=== PATIENT | male | born 1945 | race Caucasian/White ===

== ENCOUNTER → 2018-06-19 14:29 | Outpatient (CLI) | payer MEDICARE, SELFPAY ==
--- NOTE | 2018-06-19 14:37 | RAD_ITS ---
HISTORY: RA COMPARISON: None FINDINGS: XR right hand 3 views Generalized bony demineralization. Minor narrowing of the DIP joints. The remaining joint spaces are grossly preserved. No bony erosions. Nonspecific mild soft tissue swelling at the ulnar wrist. RAD/Hand Min 3 Views IMPRESSION: 1. DIP joint mild osteoarthritis. 2. No bony erosion seen. 3. Nonspecific mild soft tissue swelling at the ulnar right wrist and diagnostic considerations would include bursitis and tenosynovitis. at 0452 Reported and signed by: Miles Goldberg MD Electronically Signed: Miles Goldberg, at 4:50 EST Tel , Service support ,
--- NOTE | 2018-06-19 14:37 | RAD_ITS ---
STUDY: X-RAY - RIGHT HAND REASON FOR EXAM: Male, 73 years old. Rheumatoid arthritis. TECHNIQUE: 3 view(s) of the hand. COMPARISON: None. FINDINGS: There is generalized osteopenia. There is joint space narrowing of the radiocarpal articulation consistent with degenerative arthrosis. Normal distal radioulnar joint. Normal visualized carpal bones. There is degenerative joint disease of the scaphotrapezium / trapezoid articulation. The remainder of the carpal articulations are normal. There is degenerative arthrosis of the carpometacarpal (CMC) articulation of the thumb. Normal second through fifth carpometacarpal joints. Normal metacarpi. There is degenerative arthrosis of the first metacarpophalangeal (MCP) joint. There is degenerative arthrosis of the interphalangeal joint of the thumb with articular joint space narrowing. Normal proximal and distal phalanges of the thumb. Normal metacarpophalangeal joints of the second through fifth fingers. There is diffuse articular joint space narrowing of the proximal and distal interphalangeal joints of the second through fifth fingers, but without erosive changes or periarticular soft tissue swelling. Normal phalanges of the second through fifth fingers. There is mild soft tissue swelling over the medial aspect of the wrist. RAD/Hand Min 3 Views IMPRESSION: Degenerative changes and osteopenia of the right hand. Electronically Signed: Srinivasa Adam DO at 22:34 EST Tel [phone], Service support ,
[2018-06-19 16:17] LABS: ALB/GLOB Ratio 0.6 RATIO (0.9-2.4); AST(SGOT) 14 U/L (15-37); Alanine Aminotransfer ALT/SGPT 15 U/L (16-61); Albumin, Serum 3.3 g/dL (3.2-5.0); Alkaline Phosphatase 68 U/L (45-117); Anion Gap 10 (5-15); BUN 5 mg/dL (7-18); BUN/Creat Ratio 8.1 RATIO (10-20); Calcium,Total 8.8 mg/dL (8.5-10.1); Chloride 93 mmol/L (98-107); Creatinine, Serum 0.62 mg/dL (0.70-1.30); EST Glomerular Filtration Rate 136 mL/min (>60); Est Glom Filt Rate - Afr Amer 164 mL/min (>60); Globulin 5.1 g/dL (2.2-4.2); Glucose 100 mg/dL (74-106); Potassium 4.2 mmol/L (3.5-5.1); Protein, Total 8.4 g/dL (6.4-8.2); Sodium Level 129 mmol/L (136-145)
[2018-06-19 16:34] LABS: Absolute Lymphocyte Count 0.52 X10^3/ul (0.83-4.51); Absolute Neutrophil Count 6.5 X10^3/uL (2.0-7.7); Basophil# 0.03 X10^3/uL; Basophil% 0.4 % (0-1); Eosinophil# 0.09 X10^3/uL; Eosinophils% 1.1 % (0-5); Hematocrit 31.5 % (40-54); Hemoglobin 10.4 g/dl (13.0-16.5); Lymphocyte # 0.52 X10^3/ul (4.0); Lymphocyte % 6.6 % (19-41); Mean Corpuscular Hgb 29.1 pg (27.0-32.0); Mean Platelet Vol. 8.7 fl (6.2-12.0); Monocyte# 0.77 X10^3/uL; Monocyte% 9.7 % (0-10); Neutrophil # 6.48 X10^3/uL (2.7-7.7); Neutrophil % 81.9 % (47-70); Platelet Count 428 K/mm3 (150-450); RBC Distribution Width CV 13.8 % (11.6-14.6); RBC Distribution Width SD 44.7 fl (35.1-43.9); Red Blood Count 3.58 M/mm3 (4.6-6.2); White Blood Count 7.9 K/mm3 (4.4-11.0)
[2018-06-19 16:43] LABS: Differential Indicated SCAN CRITERIA MET; POSITIVE COUNT NO; POSITIVE DIFFERENTIAL YES; POSITIVE MORPHOLOGY NO
[2018-06-19 18:58] LABS: Anisocytosis RARE; Platelet Estimate SLT INC (ADEQ)
[2018-06-22 16:20] LABS: CCP IgG Antibodies > 250 units (0-19); HEPATITIS B SURFACE AG Negative (Negative); Hep B Surface Antibodies Non Reactive (.); Hep C Antibodies <0.1 s/co ratio (0.0-0.9)
== END ==
PROVIDERS: Family Provider Preventive Medicine Occupational Medicine; PCP Preventive Medicine Occupational Medicine; Referring Provider Internal Medicine Rheumatology; Visit Provider Internal Medicine Rheumatology
DX: M05.79 Rheumatoid arthritis with rheumatoid factor of multiple sites without organ or systems involvement (principal); N40.1 Benign prostatic hyperplasia with lower urinary tract symptoms; M15.9 Polyosteoarthritis, unspecified; M47.892 Other spondylosis, cervical region; F41.9 Anxiety disorder, unspecified; K58.0 Irritable bowel syndrome with diarrhea
CPT/HCPCS: 36415; 73130; 80053; 85025; 86200; 86431; 86706; 86803; 87340

== ENCOUNTER → 2018-06-20 12:58 | Outpatient (CLI) | payer MEDICARE, SELFPAY ==
[2018-06-20 13:26] LABS: RBC /Synovial Fluid 0.015 10^6/uL (0)
[2018-06-20 13:55] LABS: AUTO B FLUID DILUENT BKGD CT WBC <0.1 RBC <0.01 (W<.1,R<.01); Color / Synovial Fluid Pink (Pale Yellow); Source- Body Fluid SYNOVIAL; Viscosity / Synovial Fluid Sl. Viscous (HIGH)
[2018-06-20 13:56] LABS: Appearance /Synovial Fluid Cloudy (CLEAR)
[2018-06-20 14:08] LABS: Lymph 31 %; Monocyte /Synovial Fluid 13 %; Neutrophil 56 % (0-25)
[2018-06-20 14:12] LABS: Body Fluid QC Type(s) BF1Q
[2018-06-21 12:30] LABS: Pathologist Comment Reviewed; Pathologist Review Reviewed
== END ==
PROVIDERS: Family Provider Preventive Medicine Occupational Medicine; PCP Preventive Medicine Occupational Medicine; Visit Provider Internal Medicine Rheumatology
DX: M05.79 Rheumatoid arthritis with rheumatoid factor of multiple sites without organ or systems involvement (principal); M15.9 Polyosteoarthritis, unspecified; M47.892 Other spondylosis, cervical region; M25.562 Pain in left knee; F41.9 Anxiety disorder, unspecified; K58.0 Irritable bowel syndrome with diarrhea; N40.1 Benign prostatic hyperplasia with lower urinary tract symptoms
CPT/HCPCS: 87070; 87075; 87205; 89050; 89051; 89060

== ENCOUNTER → 2018-09-04 | Outpatient (CLI) | payer MEDICARE, SELFPAY ==
[2018-09-04 12:33] LABS: Absolute Lymphocyte Count 0.68 X10^3/ul (0.83-4.51); Absolute Neutrophil Count 5.1 X10^3/uL (2.0-7.7); Basophil# 0.03 X10^3/uL; Basophil% 0.5 % (0-1); Eosinophil# 0.07 X10^3/uL; Eosinophils% 1.1 % (0-5); Hematocrit 32.8 % (40-54); Lymphocyte # 0.68 X10^3/ul (4.0); Lymphocyte % 10.7 % (19-41); Mean Corp Hgb Conc 33.5 g/gl (32-36); Mean Corpuscular Hgb 30.3 pg (27.0-32.0); Mean Corpuscular Volume 90.4 fL (80-94); Mean Platelet Vol. 9.1 fl (6.2-12.0); Monocyte# 0.53 X10^3/uL; Monocyte% 8.3 % (0-10); Neutrophil # 5.06 X10^3/uL (2.7-7.7); Neutrophil % 79.2 % (47-70); Platelet Count 325 K/mm3 (150-450); RBC Distribution Width CV 14.4 % (11.6-14.6); Red Blood Count 3.63 M/mm3 (4.6-6.2); White Blood Count 6.4 K/mm3 (4.4-11.0)
[2018-09-04 12:43] LABS: AST(SGOT) 15 U/L (15-37); Alanine Aminotransfer ALT/SGPT 15 U/L (16-61); Albumin, Serum 3.7 g/dL (3.2-5.0); Alkaline Phosphatase 73 U/L (45-117); Anion Gap 4 (5-15); BUN 7 mg/dL (7-18); BUN/Creat Ratio 10.8 RATIO (10-20); Calcium,Total 8.7 mg/dL (8.5-10.1); Chloride 99 mmol/L (98-107); Creatinine, Serum 0.65 mg/dL (0.70-1.30); EST Glomerular Filtration Rate 128 mL/min (>60); Est Glom Filt Rate - Afr Amer 155 mL/min (>60); Globulin 3.8 g/dL (2.2-4.2); Glucose 92 mg/dL (74-106); POSITIVE COUNT NO; POSITIVE DIFFERENTIAL NO; POSITIVE MORPHOLOGY NO; Potassium 4.4 mmol/L (3.5-5.1); Protein, Total 7.5 g/dL (6.4-8.2); Sodium Level 130 mmol/L (136-145)
== END | disposition home or self-care (01) ==
LOC: MTLAB 10:02
PROVIDERS: Family Provider Preventive Medicine Occupational Medicine; PCP Preventive Medicine Occupational Medicine; Referring Provider Internal Medicine Rheumatology; Visit Provider Internal Medicine Rheumatology
DX: M05.79 Rheumatoid arthritis with rheumatoid factor of multiple sites without organ or systems involvement (principal); M15.9 Polyosteoarthritis, unspecified; M47.892 Other spondylosis, cervical region; M25.562 Pain in left knee; F41.9 Anxiety disorder, unspecified; K58.0 Irritable bowel syndrome with diarrhea; N40.1 Benign prostatic hyperplasia with lower urinary tract symptoms; Z79.899 Other long term (current) drug therapy
CPT/HCPCS: 36415; 80053; 85025

== ENCOUNTER → 2018-11-27 | Outpatient (CLI) | payer MEDICARE, SELFPAY ==
[2018-11-27 10:15] LABS: Absolute Lymphocyte Count 0.65 X10^3/uL (0.83-4.51); Absolute Neutrophil Count 6.7 X10^3/uL (2.0-7.7); Basophil# 0.06 X10^3/uL; Basophil% 0.7 % (0-1); Eosinophil# 0.13 X10^3/uL; Eosinophils% 1.6 % (0-5); Hemoglobin 12.3 g/dL (13.0-16.5); Lymphocyte # 0.65 X10^3/ul (4.0); Lymphocyte % 7.9 % (19-41); Mean Corp Hgb Conc 32.4 g/dL (32-36); Mean Corpuscular Hgb 29.7 pg (27.0-32.0); Mean Corpuscular Volume 91.8 fL (80-94); Mean Platelet Vol. 8.3 fl (6.2-12.0); Monocyte# 0.62 X10^3/uL; Monocyte% 7.6 % (0-10); NRBC Flagged by Analyzer 0 % (0-5); Neutrophil # 6.69 X10^3/uL (2.7-7.7); Neutrophil % 81.8 % (47-70); Platelet Count 408 K/mm3 (150-450); RBC Distribution Width CV 12.6 % (11.6-14.6); RBC Distribution Width SD 41.6 fl (35.1-43.9); Red Blood Count 4.14 M/mm3 (4.6-6.2); White Blood Count 8.2 K/mm3 (4.4-11.0)
[2018-11-27 10:37] LABS: ALB/GLOB Ratio 0.7 RATIO (0.9-2.4); AST(SGOT) 13 U/L (15-37); Alanine Aminotransfer ALT/SGPT 14 U/L (16-61); Albumin, Serum 3.5 g/dL (3.2-5.0); Alkaline Phosphatase 83 U/L (45-117); Anion Gap 4 (5-15); BUN 7 mg/dL (7-18); BUN/Creat Ratio 9.5 RATIO (10-20); Chloride 96 mmol/L (98-107); Creatinine, Serum 0.74 mg/dL (0.70-1.30); EST Glomerular Filtration Rate 110 mL/min (>60); Est Glom Filt Rate - Afr Amer 134 mL/min (>60); Globulin 4.7 g/dL (2.2-4.2); Glucose 100 mg/dL (74-106); Potassium 4.5 mmol/L (3.5-5.1); Protein, Total 8.2 g/dL (6.4-8.2); Sodium Level 128 mmol/L (136-145)
== END | disposition home or self-care (01) ==
LOC: MTLAB 08:41
PROVIDERS: Family Provider Preventive Medicine Occupational Medicine; PCP Preventive Medicine Occupational Medicine; Referring Provider Internal Medicine Rheumatology; Visit Provider Internal Medicine Rheumatology
DX: M05.79 Rheumatoid arthritis with rheumatoid factor of multiple sites without organ or systems involvement (principal); M15.9 Polyosteoarthritis, unspecified; M47.892 Other spondylosis, cervical region; M25.562 Pain in left knee; F41.9 Anxiety disorder, unspecified; K58.0 Irritable bowel syndrome with diarrhea; N40.1 Benign prostatic hyperplasia with lower urinary tract symptoms; Z79.899 Other long term (current) drug therapy
CPT/HCPCS: 36415; 80053; 85025

== ENCOUNTER → 2019-02-15 | Outpatient (CLI) | payer MEDICARE, SELFPAY ==
[2019-02-15 10:26] LABS: Absolute Lymphocyte Count 0.65 X10^3/uL (0.83-4.51); Basophil# 0.05 X10^3/uL; Basophil% 0.7 % (0-1); Eosinophil# 0.18 X10^3/uL; Eosinophils% 2.4 % (0-5); Hematocrit 35.2 % (40-54); Hemoglobin 11.3 g/dL (13.0-16.5); Lymphocyte # 0.65 X10^3/ul (4.0); Lymphocyte % 8.6 % (19-41); Mean Corp Hgb Conc 32.1 g/dL (32-36); Mean Corpuscular Hgb 29.4 pg (27.0-32.0); Mean Corpuscular Volume 91.4 fL (80-94); Mean Platelet Vol. 9.4 fl (6.2-12.0); Monocyte# 0.64 X10^3/uL; Monocyte% 8.5 % (0-10); NRBC Flagged by Analyzer 0 % (0-5); Neutrophil % 79.4 % (47-70); Platelet Count 307 K/mm3 (150-450); RBC Distribution Width CV 13.7 % (11.6-14.6); RBC Distribution Width SD 45.8 fl (35.1-43.9); Red Blood Count 3.85 M/mm3 (4.6-6.2); White Blood Count 7.6 K/mm3 (4.4-11.0)
[2019-02-15 10:54] LABS: ALB/GLOB Ratio 0.8 RATIO (0.9-2.4); AST(SGOT) 12 U/L (15-37); Alanine Aminotransfer ALT/SGPT 14 U/L (16-61); Albumin, Serum 3.7 g/dL (3.2-5.0); Alkaline Phosphatase 84 U/L (45-117); Anion Gap 6 (5-15); BUN 8 mg/dL (7-18); BUN/Creat Ratio 9.6 RATIO (10-20); Chloride 98 mmol/L (98-107); Creatinine, Serum 0.84 mg/dL (0.70-1.30); EST Glomerular Filtration Rate 95 mL/min (>60); Est Glom Filt Rate - Afr Amer 115 mL/min (>60); Globulin 4.4 g/dL (2.2-4.2); Glucose 86 mg/dL (74-106); Potassium 4.2 mmol/L (3.5-5.1); Protein, Total 8.1 g/dL (6.4-8.2); Sodium Level 133 mmol/L (136-145)
== END | disposition home or self-care (01) ==
LOC: MTLAB 09:27
PROVIDERS: Family Provider Preventive Medicine Occupational Medicine; PCP Preventive Medicine Occupational Medicine; Referring Provider Internal Medicine Rheumatology; Visit Provider Internal Medicine Rheumatology
DX: M05.79 Rheumatoid arthritis with rheumatoid factor of multiple sites without organ or systems involvement (principal); M15.9 Polyosteoarthritis, unspecified; M47.892 Other spondylosis, cervical region; M25.562 Pain in left knee; F41.9 Anxiety disorder, unspecified; K58.0 Irritable bowel syndrome with diarrhea; N40.1 Benign prostatic hyperplasia with lower urinary tract symptoms; Z79.899 Other long term (current) drug therapy
CPT/HCPCS: 36415; 80053; 85025

== ENCOUNTER → 2019-04-02 08:24 | Outpatient (CLI) | payer MEDICARE, SELFPAY ==
[2019-04-02 10:07] LABS: Absolute Lymphocyte Count 0.75 X10^3/uL (0.83-4.51); Absolute Neutrophil Count 5.2 X10^3/uL (2.0-7.7); Basophil# 0.07 X10^3/uL; Eosinophil# 0.22 X10^3/uL; Eosinophils% 3.2 % (0-5); Hematocrit 35.6 % (40-54); Hemoglobin 11.6 g/dL (13.0-16.5); Lymphocyte # 0.75 X10^3/ul (4.0); Lymphocyte % 10.9 % (19-41); Mean Corp Hgb Conc 32.6 g/dL (32-36); Mean Corpuscular Hgb 29.6 pg (27.0-32.0); Mean Corpuscular Volume 90.8 fL (80-94); Mean Platelet Vol. 9.4 fl (6.2-12.0); Monocyte# 0.58 X10^3/uL; Monocyte% 8.5 % (0-10); NRBC Flagged by Analyzer 0.3 % (0-5); Neutrophil # 5.21 X10^3/uL (2.7-7.7); Neutrophil % 76.1 % (47-70); Platelet Count 292 K/mm3 (150-450); RBC Distribution Width CV 13.3 % (11.6-14.6); RBC Distribution Width SD 43.7 fl (35.1-43.9); Red Blood Count 3.92 M/mm3 (4.6-6.2); White Blood Count 6.9 K/mm3 (4.4-11.0)
[2019-04-02 10:25] LABS: ALB/GLOB Ratio 0.8 RATIO (0.9-2.4); AST(SGOT) 11 U/L (15-37); Alanine Aminotransfer ALT/SGPT 12 U/L (16-61); Albumin, Serum 3.6 g/dL (3.2-5.0); Alkaline Phosphatase 87 U/L (45-117); Anion Gap 5 (5-15); BUN 9 mg/dL (7-18); BUN/Creat Ratio 10.7 RATIO (10-20); Calcium,Total 9.2 mg/dL (8.5-10.1); Chloride 102 mmol/L (98-107); Creatinine, Serum 0.84 mg/dL (0.70-1.30); EST Glomerular Filtration Rate 94 mL/min (>60); Est Glom Filt Rate - Afr Amer 114 mL/min (>60); Globulin 4.5 g/dL (2.2-4.2); Glucose 93 mg/dL (74-106); Potassium 4.1 mmol/L (3.5-5.1); Protein, Total 8.1 g/dL (6.4-8.2); Sodium Level 135 mmol/L (136-145)
== END ==
PROVIDERS: Family Provider Preventive Medicine Occupational Medicine; PCP Preventive Medicine Occupational Medicine; Referring Provider Internal Medicine Rheumatology; Visit Provider Internal Medicine Rheumatology
DX: M05.79 Rheumatoid arthritis with rheumatoid factor of multiple sites without organ or systems involvement (principal); M15.9 Polyosteoarthritis, unspecified; M47.892 Other spondylosis, cervical region; M25.562 Pain in left knee; F41.9 Anxiety disorder, unspecified; K58.0 Irritable bowel syndrome with diarrhea; N40.1 Benign prostatic hyperplasia with lower urinary tract symptoms; Z79.899 Other long term (current) drug therapy
CPT/HCPCS: 36415; 80053; 85025

== ENCOUNTER → 2019-10-14 | Outpatient (CLI) | payer MEDICARE, SELFPAY ==
[2019-10-14 12:31] LABS: Absolute Lymphocyte Count 0.77 X10^3/uL (0.83-4.51); Basophil# 0.05 X10^3/uL; Basophil% 0.9 % (0-1); Eosinophil# 0.12 X10^3/uL; Eosinophils% 2.3 % (0-5); Hematocrit 38.5 % (40-54); Hemoglobin 13.1 g/dL (13.0-16.5); Lymphocyte # 0.77 X10^3/ul (4.0); Lymphocyte % 14.4 % (19-41); Mean Corpuscular Hgb 32.6 pg (27.0-32.0); Mean Corpuscular Volume 95.8 fL (80-94); Monocyte# 0.41 X10^3/uL; Monocyte% 7.7 % (0-10); NRBC Flagged by Analyzer 0 % (0-5); Neutrophil # 3.96 X10^3/uL (2.7-7.7); Neutrophil % 74.3 % (47-70); Platelet Count 307 K/mm3 (150-450); RBC Distribution Width CV 12.7 % (11.6-14.6); RBC Distribution Width SD 44.5 fl (35.1-43.9); Red Blood Count 4.02 M/mm3 (4.6-6.2); White Blood Count 5.3 K/mm3 (4.4-11.0)
[2019-10-14 12:51] LABS: ALB/GLOB Ratio 0.8 RATIO (0.9-2.4); AST(SGOT) 12 U/L (15-37); Alanine Aminotransfer ALT/SGPT 19 U/L (16-61); Albumin, Serum 3.6 g/dL (3.2-5.0); Alkaline Phosphatase 73 U/L (45-117); Anion Gap 8 (5-15); BUN 8 mg/dL (7-18); BUN/Creat Ratio 8.8 RATIO (10-20); Calcium,Total 9.1 mg/dL (8.5-10.1); Chloride 99 mmol/L (98-107); Creatinine, Serum 0.91 mg/dL (0.70-1.30); EST Glomerular Filtration Rate 86 mL/min (>60); Est Glom Filt Rate - Afr Amer 104 mL/min (>60); Globulin 4.3 g/dL (2.2-4.2); Glucose 94 mg/dL (74-106); Potassium 4.1 mmol/L (3.5-5.1); Protein, Total 7.9 g/dL (6.4-8.2); Sodium Level 135 mmol/L (136-145)
== END | disposition home or self-care (01) ==
LOC: MTLAB 09:31
PROVIDERS: PCP Preventive Medicine Occupational Medicine; Referring Provider Internal Medicine Rheumatology; Visit Provider Internal Medicine Rheumatology
DX: M05.70 Rheumatoid arthritis with rheumatoid factor of unspecified site without organ or systems involvement (principal); M15.9 Polyosteoarthritis, unspecified; M47.892 Other spondylosis, cervical region; F41.9 Anxiety disorder, unspecified; K58.0 Irritable bowel syndrome with diarrhea; N40.1 Benign prostatic hyperplasia with lower urinary tract symptoms; Z79.899 Other long term (current) drug therapy
CPT/HCPCS: 36415; 80053; 85025

== ENCOUNTER → 2020-01-10 | Outpatient (CLI) | payer MEDICARE, SELFPAY ==
[2020-01-10 09:45] LABS: Absolute Lymphocyte Count 0.76 X10^3/uL (0.83-4.51); Absolute Neutrophil Count 3.6 X10^3/uL (2.0-7.7); Basophil# 0.05 X10^3/uL; Eosinophil# 0.27 X10^3/uL; Eosinophils% 5.2 % (0-5); Hematocrit 38.2 % (40-54); Hemoglobin 12.8 g/dL (13.0-16.5); Lymphocyte # 0.76 X10^3/ul (4.0); Lymphocyte % 14.8 % (19-41); Mean Corp Hgb Conc 33.5 g/dL (32-36); Mean Corpuscular Hgb 31.2 pg (27.0-32.0); Mean Corpuscular Volume 93.2 fL (80-94); Mean Platelet Vol. 9.2 fl (6.2-12.0); Monocyte% 9.7 % (0-10); NRBC Flagged by Analyzer 0 % (0-5); Neutrophil # 3.55 X10^3/uL (2.7-7.7); Neutrophil % 68.9 % (47-70); Platelet Count 248 K/mm3 (150-450); RBC Distribution Width CV 13.1 % (11.6-14.6); RBC Distribution Width SD 44.3 fl (35.1-43.9); White Blood Count 5.2 K/mm3 (4.4-11.0)
[2020-01-10 10:01] LABS: AST(SGOT) 14 U/L (15-37); Alanine Aminotransfer ALT/SGPT 23 U/L (16-61); Albumin, Serum 3.8 g/dL (3.2-5.0); Alkaline Phosphatase 64 U/L (45-117); Anion Gap 3 (5-15); BUN 11 mg/dL (7-18); BUN/Creat Ratio 9.7 RATIO (10-20); Chloride 103 mmol/L (98-107); Creatinine, Serum 1.13 mg/dL (0.70-1.30); EST Glomerular Filtration Rate 67 mL/min (>60); Est Glom Filt Rate - Afr Amer 81 mL/min (>60); Glucose 100 mg/dL (74-106); Protein, Total 7.8 g/dL (6.4-8.2); Sodium Level 136 mmol/L (136-145)
== END | disposition home or self-care (01) ==
LOC: MTLAB 08:10
PROVIDERS: PCP Preventive Medicine Occupational Medicine; Referring Provider Internal Medicine Rheumatology; Visit Provider Internal Medicine Rheumatology
DX: M05.70 Rheumatoid arthritis with rheumatoid factor of unspecified site without organ or systems involvement (principal); M15.9 Polyosteoarthritis, unspecified; M47.892 Other spondylosis, cervical region; F41.9 Anxiety disorder, unspecified; K58.0 Irritable bowel syndrome with diarrhea; N40.1 Benign prostatic hyperplasia with lower urinary tract symptoms; Z79.899 Other long term (current) drug therapy
CPT/HCPCS: 36415; 80053; 85025

== ENCOUNTER → 2020-03-23 18:18 | Outpatient (CLI) | payer MEDICARE, SELFPAY ==
[2020-03-23 18:20] LABS: Bacteria 0 SEEN /hpf (None Seen); Mucous, Urine 0 SEEN /hpf (<or=2+); Red Blood Cells-Urine 0 SEEN /hpf (0-5); Squamous Epithelial Cells - UA 0 SEEN /hpf (0-5); White Blood Cells 0 SEEN /hpf (0-5)
[2020-03-23 18:54] LABS: Color, Urine Yellow (Yellow); Glucose, Dipstick Normal (Normal); Ketone-Dipstick Negative (Negative); Leukocyte Esterase-Dipstick Negative /ul (Negative); Nitrite-Dipstick Negative (Negative); Occult Blood-Urine 10 /ul (Negative); Protein-Dipstick Negative (Negative); Urine Bilirubin Dipstick Negative (Negative); Urine Clarity Clear (Clear); Urine Urobilinogen Normal (Normal)
== END ==
PROVIDERS: PCP Preventive Medicine Occupational Medicine; Referring Provider Nurse Practitioner Adult Health; Visit Provider Nurse Practitioner Adult Health
DX: R31.29 Other microscopic hematuria (principal)
CPT/HCPCS: 81001

== ENCOUNTER → 2020-04-01 09:31 | Outpatient (CLI) | payer MEDICARE, SELFPAY ==
[2020-04-01 12:18] LABS: Absolute Lymphocyte Count 0.62 X10^3/uL (0.83-4.51); Absolute Neutrophil Count 4.4 X10^3/uL (2.0-7.7); Basophil# 0.06 X10^3/uL; Eosinophil# 0.17 X10^3/uL; Eosinophils% 2.8 % (0-5); Hemoglobin 12.8 g/dL (13.0-16.5); Lymphocyte # 0.62 X10^3/ul (4.0); Lymphocyte % 10.3 % (19-41); Mean Corp Hgb Conc 32.8 g/dL (32-36); Mean Corpuscular Hgb 31.5 pg (27.0-32.0); Mean Corpuscular Volume 96.1 fL (80-94); Mean Platelet Vol. 9.3 fl (6.2-12.0); Monocyte# 0.67 X10^3/uL; Monocyte% 11.2 % (0-10); NRBC Flagged by Analyzer 0 % (0-5); Neutrophil # 4.44 X10^3/uL (2.7-7.7); Platelet Count 295 K/mm3 (150-450); RBC Distribution Width CV 13.2 % (11.6-14.6); Red Blood Count 4.06 M/mm3 (4.6-6.2)
[2020-04-01 12:48] LABS: AST(SGOT) 11 U/L (15-37); Alanine Aminotransfer ALT/SGPT 18 U/L (16-61); Albumin, Serum 3.7 g/dL (3.2-5.0); Alkaline Phosphatase 61 U/L (45-117); Anion Gap 3 (5-15); BUN 10 mg/dL (7-18); BUN/Creat Ratio 9.1 RATIO (10-20); Calcium,Total 8.8 mg/dL (8.5-10.1); Chloride 104 mmol/L (98-107); EST Glomerular Filtration Rate 69 mL/min (>60); Est Glom Filt Rate - Afr Amer 84 mL/min (>60); Globulin 3.8 g/dL (2.2-4.2); Glucose 86 mg/dL (74-106); Potassium 4.1 mmol/L (3.5-5.1); Protein, Total 7.5 g/dL (6.4-8.2); Sodium Level 137 mmol/L (136-145)
[2020-04-01 12:49] LABS: PSA,Total - Annual Screen 7.12 ng/mL (0.00-4.00)
== END ==
PROVIDERS: Nurse Practitioner Adult Health; PCP Preventive Medicine Occupational Medicine; Referring Provider Internal Medicine Rheumatology; Visit Provider Internal Medicine Rheumatology
DX: M05.70 Rheumatoid arthritis with rheumatoid factor of unspecified site without organ or systems involvement (principal); Z79.899 Other long term (current) drug therapy; M15.9 Polyosteoarthritis, unspecified; M47.892 Other spondylosis, cervical region; F41.9 Anxiety disorder, unspecified; K58.0 Irritable bowel syndrome with diarrhea; N40.1 Benign prostatic hyperplasia with lower urinary tract symptoms; Z12.5 Encounter for screening for malignant neoplasm of prostate
CPT/HCPCS: 36415; 80053; 84153; 85025; G0103

== ENCOUNTER 2020-04-24 08:20 | Day surgery (SDC) | payer MEDICARE, SELFPAY ==
--- NOTE | 2020-04-21 10:34 | EKG12_ITS ---
Test Reason : PRE OP Blood Pressure : / mmHG Vent. Rate : 066 BPM Atrial Rate : 066 BPM P-R Int : 142 ms QRS Dur : 086 ms QT Int : 374 ms P-R-T Axes : 078 081 073 degrees QTc Int : 392 ms Normal sinus rhythm Normal ECG Confirmed by JEAN-PIERRE BOLAÑOS, RICCI ([id number]), editorial intern MARYAM MUNGUIA ([id number]) on 04/22/2020 1:12:05 PM Referred By: Micheal Baltazar Confirmed By:RICCI MOREJON MD
[2020-04-21 11:46] LABS: Prothrombin Time (Protime)PT. 12.6 SECONDS (11.7-14.9)
[2020-04-21 11:47] LABS: Partial Thromboplast Time 31.1 Seconds (24.1-36.2)
[2020-04-24] VITALS (10 sets, daily range): BP systolic 122–136; BP diastolic 64–97; PULSE 57–74; RESP 16–20; TEMP 36.1–37.1; O2SAT 92–100; BMI 21.3
[2020-04-24] MEDS: Lactated Ringers 1,000 ML 100 ML IV ×2 (09:01→10:55)
--- NOTE | 2020-04-24 09:14 | HP.PCM_ITS ---
History of Present Illness Date of Admission: 04/24/20 Chief Complaint: BPH with obstruction The patient is a 75 year old male who underwent a UroLift procedure about a year and a half ago, the first 6 months he reports very good stream very good voiding can empty well he was happy with how he is doing but now suddenly slowed down a lot lot of obstruction on cystoscopy has a lot of bilateral hypertrophy and obstruction still so we can proceed with a transurethral resection of the prostate using button Olympus Past Medical History Allergies hydrocodone [From Vicodin] Allergy (Verified 04/24/20 08:35) Swelling Home Medications: Ambulatory Orders Medication Instructions Recorded ALPRAZolam [Xanax] 2 mg PO TID PRN PRN 04/17/20 Diphenoxylate HCl/Atropine 1 ea PO PRN PRN 04/17/20 [Diphenoxylate-Atrop 2.5-0.025] Ferrous Sulfate, Dried [Iron] 130 mg PO DAILY 04/17/20 Folic Acid 2 mg PO DAILY 04/17/20 Melatonin 10 mg PO QHS 04/17/20 Methotrexate Sodium [Methotrexate] 8 tab PO FR 04/17/20 Prednisone 10 mg PO DAILY 04/17/20 Tramadol HCl [Ultram] 50 mg PO TID PRN PRN 04/17/20 Surgical History: no surgical history Smoking Status: Former smoker Review of Systems Constitutional: Denies: Chills, Fever, Weight Change HEENT: Denies: Head Aches, Sinus Congestion, Sinus Drainage Cardiovascular: Denies: Chest Pain, Palpitations Respiratory: Denies: Cough, Shortness of breath at rest, Sputum production Gastrointestinal: Denies: Abdominal Pain, Nausea, Vomiting Genitourinary: Denies: Dysuria Musculoskeletal: Denies: Joint Pain, Joint Tenderness Skin: Denies: Rash, Wounds Neurological: Denies: Numbness, Tingling, Focal weakness Psychiatric: Denies: Anxiety, Depression, Homicidal Ideations, Suicidal Ideations Hematologic/ Lymphatic: Denies: Easy Bruising, Easy Bleeding VTE Information - Inpt Only VTE Present on Admission: No - Physical Exam Vitals/I&O's: Vital Signs Temp Pulse Resp BP Pulse Ox 98.8 F 71 16 125/73 H 92 04/24/20 08:56 04/24/20 08:56 04/24/20 08:56 04/24/20 08:56 04/24/20 08:56 Oxygen Delivery Method Room Air Weight: 69.3 kg Body Mass Index (BMI) 21.3 General: Alert, Oriented x3, Cooperative HEENT: Atraumatic, PERRLA, EOMI, Normocephalic Neck: Supple, No JVD, Negative Carotid Bruits Lungs: Clear to auscultation, Normal air movement Cardiovascular: Regular rate, No murmurs Abdomen: Bowel Sounds Present, Soft, Non Tender Extremities: No edema, Capillary Refill Less than 3 Seconds Skin: No rashes, No breakdown Musculoskeletal: No Tenderness to Palpation of Joints or Extremities Neurological: Cranial nerves II-XII grossly intact Psych/Mental Status: Normal Affect, Appropriate Microbiology Past 72 Hours 04/23/20 09:20 Interface Orders SARS-CoV-2 Antigen (Rapid) - Final Current Medications Cefazolin Sodium 2 gm/ Sodium (Chloride) 110 mls @ 150 mls/hr IV PREOP ONE Stop: 04/24/20 11:43 Lactated Ringer's () 1,000 mls @ 100 mls/hr IV .Q10H UBALDO Last Admin: 04/24/20 09:01 Dose: 100 mls/hr Documented by: Assessment/Plan 75-year-old male with BPH and obstruction has failed UroLift to proceed with tr ansurethral resection of the prostate.
--- NOTE | 2020-04-24 09:22 | DCINST_ITS ---
Discharge Diet: Light diet - advance as tolerated Discharge Activity: Return to Normal Activity Suture Line Care: Avoid Pulling/Pushing, Avoid Pinching/Bending Instructions: Transurethral Resection of the Prostate (TURP): Home Recovery Allergies/Adverse Reactions: Allergies hydrocodone [From Vicodin] Allergy (Verified 04/24/20 08:35) Swelling Medications to take at Discharge ALPRAZolam [Xanax] 2 mg PO TID PRN PRN 04/17/20 Diphenoxylate HCl/Atropine [Diphenoxylate-Atrop 2.5-0.025] 1 ea PO PRN PRN 04/17/20 Ferrous Sulfate, Dried [Iron] 130 mg PO DAILY 04/17/20 Folic Acid 2 mg PO DAILY 04/17/20 Melatonin 10 mg PO QHS 04/17/20 Methotrexate Sodium [Methotrexate] 8 tab PO FR 04/17/20 Prednisone 10 mg PO DAILY 04/17/20 Tramadol HCl [Ultram] 50 mg PO TID PRN PRN 04/17/20 Ciprofloxacin [Cipro] 500 mg PO BID #14 tab 04/24/20 The following prescriptions were given: Ciprofloxacin [Cipro] 500 mg PO BID #14 tab Transmission Status: Pending to [facility] Orders to be completed after discharge: 12 Lead EKG [[facility]] Time Frame: 04/21/20, Facility: [facility], Location: Cardiovascular Services Primary Care Physician: Festus Castle DO [Primary Care Provider] - Test Results: Test results from this visit will be discussed in further detail at your follow- up appointment, if applicable. Please Follow Up With: Micheal Baltazar MD When: in 2 weeks, please call to make an appointment. Proposed Discharge Date: 04/25/20
[2020-04-24] MEDS: Cefazolin 2 GM in 0.9% Normal Saline 100 ML IV (09:33)
[2020-04-24] MEDS: Lubricating Jelly 60 GM Tube 30 GM TOPICAL (09:46)
--- NOTE | 2020-04-24 09:50 | PROS_PTH ---
PATIENT: JAMISON ADAIR LOC: [facility] U#:[id number] AGE/SX: 75/M ROOM: RE04/24/[address]: Dr. Micheal Baltazar MD : 1945 BED: DIS: 04/25/2020 SPEC #: [id number] RECD: 04/24/20 11:06 STATUS: NATO RAMIRO #: [id number] JATINDER: 04/24/20 09:[address]: Micheal Baltazar DEPT: SURGICAL PATHOLOGY RECD BY: Siria Robles ENTERED: 04/24/20 13:04 SP TYPE: TURP OTHR DR: Dr. Festus Castle DO Tissues: Prostate, NOS Procedures: Surgery Specimen Level IV HEADER OPERATION: Cysto, TUR prostate, Olympus PRE-OP DIAGNOSIS: Benign prostatic hyperplasia, frequency and hesitancy micturition; nocturia TISSUE SUBMITTED: Prostate pieces MICROSCOPIC DIAGNOSIS Prostate pieces, TUR: Benign prostatic hyperplasia. SJ:jules 04/27/20 MICROSCOPIC DESCRIPTION Slides are reviewed. GROSS DESCRIPTION Received is one container labeled with the patient's name and designated prostate pieces. The specimen consists of multiple irregular fragments of pink-stanton, rubbery, soft tissue that in aggregate weigh 0.3 gm and measure in aggregate 1 x 0.5 x 0.2 cm. The entire specimen is submitted in one cassette. / TORIBIO:jules 04/24/20 TC:5 CPT: 85770
--- NOTE | 2020-04-24 10:51 | PCM.OPRPT ---
Report of Operation Date of Procedure: 04/24/20 Pre-Operative Diagnosis: BPH with obstruction status post UroLift Post-Operative Diagnosis: The same Surgery/Procedure Performed:: Transurethral resection of the prostate and removal of UroLift implants, foreign bodies. Description of Surgical Findings:: 75-year-old male who underwent a UroLift implant about 2 years ago he was initially very happy with the results had a nice flow and was also happy with the low sexual side effect profile did not affect his ejaculation and sexually. However he is not having too much problems with urination having to go to bathroom very frequently not emptying his bladder all the way. He has a lot of obstructive tissue on cystoscopy so today we can proceed with a transurethral resection of the prostate understands with this procedure it could affect his ability to have ejaculation it could affect erections he could have bleeding infection and regrowth is also the chance of injuring the sphincter with the surgery. He is having significant urinary problems he wants to proceed with surgery despite the risks were discussed with the patient he signed the consent form and we can proceed with a TURP and removal of UroLift implants. Patient was taken back to the operating room after smooth induction of general anesthesia he was placed in dorsolithotomy position. The penis and testicles were prepped and draped in usual sterile fashion. I first went in the bladder with a 24 Russian noncontinuous flow resectoscope. I dilated the urethra with a sound. I then went in with the Olympus bipolar resectoscope using the visual bridge. The entire length of the urethra was clear of any strictures or scar tissue the sphincter was intact the verumontanum was identified. He had a large median lobe and bilateral hypertrophy. The UroLift implants were not visible. I looked inside the bladder he did have a large distended bladder trabeculation throughout the bladder I did identify the right and left ureteral orifice. I then pulled back of the bladder neck with a marked median lobe was present I switched over to the button vaporization for the TURP and started vaporizing the median lobe and the resected this and then worked my way down to the verumontanum. I then worked my way on the patient's left prostate starting at the bladder neck working away back to verumontanum vaporizing the tissue on the left side. Then it came across the first UroLift clip and this was removed with the button vaporization then I came across a second clip on the left side this was also removed continue to vaporize the tissue until he had a nice wide open channel on the left side and then vaporized a lot of the obstructive BPH tissue. Then I went to the right side of the prostate and continued vaporizing the right side of the prostate came across the first UroLift implant and the second implant both of these were removed with the bipolar vaporizer I then emptied out the bladder in the middle the case then switched over to the 26 Russian continuous-flow to be able to continue vaporized the tissue more efficiently. I continue vaporizing the right side of the prostate I then came down to the apical tissue and very carefully resected the apical tissue with the Olympus vaporizer button tip and as a did this I then pulled out the scope and did a flow test had a nice wide open flow I went back in with a 24 Russian noncontinuous flow and continue to vaporize the tissue. Then all the pieces of tissue at the bladder were removed these were sent off as a specimen as a small specimen since most of the prostate was vaporized. At the end of the case the left and right ureteral orifice were intact and uninjured. The sphincter was intact and uninjured. He had a nice amount of tissue at the apex so should have good control of his bladder but we did a nice flow test and had a nice open flow and a wide open channel from the verumontanum sphincter area into the bladder neck and the bladder neck was wide open. I then used the vaporization to obtain hemostasis I cauterized extensively throughout the prostate once hemostasis was obtained and I put a 22 Russian catheter into the bladder and this was placed on continuous bladder irrigation the urine was nice and clear patient anesthetic was reversed taken back to PACU in good condition. Type of Anesthesia:: General Drains: 22fr 3 way - Admit VTE Documentation VTE Present on Admission: No VTE Mechan Device Prophylaxis: SCD's
--- NOTE | 2020-04-24 11:53 | PCS.PANDOC ---
PANDEMIC DOCUMENTATION INITIATED: Date: 04/24/2020 Time: 7285
[2020-04-24] MEDS: 0.9% Normal Saline 1,000 ML 75 ML IV ×2 (12:20→23:23)
[2020-04-24] MEDS: Ciprofloxacin 500 MG Tablet PO ×2 (13:52→23:02)
[2020-04-24] MEDS: Docusate Sodium 100 MG Capsule PO ×2 (13:53→23:02)
[2020-04-24] MEDS: predniSONE 10 MG Tablet PO (13:53)
[2020-04-24] MEDS: Folic Acid 1 MG Tablet 2 MG PO (13:53)
[2020-04-24] MEDS: Pantoprazole Sodium 40 MG Tablet PO (13:53)
[2020-04-24] MEDS: Methotrexate 2.5 MG Tablet 20 MG PO (13:55)
[2020-04-24] MEDS: MELATONIN 10 MG TABLET PO (23:03)
[2020-04-24] MEDS: ALPRAZolam 0.5 MG Tablet 2 MG PO (23:06)
[2020-04-25 06:11] VITALS: BP 125/69; PULSE 67; RESP 18; TEMP 36.7; O2SAT 95
[2020-04-25 08:20] VITALS: BP 148/100; PULSE 79; RESP 18; TEMP 36.2; O2SAT 98
[2020-04-25] MEDS: Docusate Sodium 100 MG Capsule PO (08:48)
[2020-04-25] MEDS: Folic Acid 1 MG Tablet 2 MG PO (08:48)
[2020-04-25] MEDS: Ferrous Sulfate 325 MG Tablet PO (08:48)
[2020-04-25] MEDS: predniSONE 10 MG Tablet PO (08:49)
[2020-04-25] MEDS: Pantoprazole Sodium 40 MG Tablet PO (10:10)
[2020-04-25] MEDS: Ciprofloxacin 500 MG Tablet PO (10:10)
[2020-04-25 12:55] VITALS: BP 148/66; PULSE 74; RESP 18; TEMP 37.2; O2SAT 100
== END 2020-04-25 13:35 | disposition home or self-care (01) ==
LOC: SDC 08:20 → AC 08:21 → MS3 13:15
PROVIDERS: Anesthesiology; PCP Preventive Medicine Occupational Medicine; Referring Provider Urology; Visit Provider Urology
PROC: (CPT 52630; principal; 2020-04-24 09:40)
DX: N40.1 Benign prostatic hyperplasia with lower urinary tract symptoms (principal); N13.8 Other obstructive and reflux uropathy; D64.9 Anemia, unspecified; F41.9 Anxiety disorder, unspecified; Z79.899 Other long term (current) drug therapy; Z20.828 Contact with and (suspected) exposure to other viral communicable diseases; Z87.891 Personal history of nicotine dependence
CPT/HCPCS: 00914; 52630; 36415; 85610; 85730; 87426; 88305; 93005; C9803; J7030; J7120; J2405; J8610

== ENCOUNTER → 2020-06-19 09:21 | Outpatient (CLI) | payer MEDICARE, SELFPAY ==
[2020-04-24 11:59] VITALS: BMI 21.3
[2020-06-19 12:12] LABS: Absolute Lymphocyte Count 1.06 X10^3/uL (0.83-4.51); Absolute Neutrophil Count 4.5 X10^3/uL (2.0-7.7); Basophil# 0.05 X10^3/uL; Basophil% 0.8 % (0-1); Eosinophil# 0.12 X10^3/uL; Eosinophils% 1.9 % (0-5); Hematocrit 39.3 % (40-54); Hemoglobin 12.9 g/dL (13.0-16.5); Lymphocyte # 1.06 X10^3/ul (4.0); Lymphocyte % 16.5 % (19-41); Mean Corp Hgb Conc 32.8 g/dL (32-36); Mean Corpuscular Hgb 31.3 pg (27.0-32.0); Mean Corpuscular Volume 95.4 fL (80-94); Mean Platelet Vol. 8.9 fl (6.2-12.0); Monocyte# 0.61 X10^3/uL; Monocyte% 9.5 % (0-10); NRBC Flagged by Analyzer 0 % (0-5); Neutrophil # 4.54 X10^3/uL (2.7-7.7); Neutrophil % 70.8 % (47-70); Platelet Count 312 K/mm3 (150-450); RBC Distribution Width CV 13.4 % (11.6-14.6); RBC Distribution Width SD 47.8 fl (35.1-43.9); Red Blood Count 4.12 M/mm3 (4.6-6.2); White Blood Count 6.4 K/mm3 (4.4-11.0)
[2020-06-19 12:28] LABS: AST(SGOT) 12 U/L (15-37); Alanine Aminotransfer ALT/SGPT 21 U/L (16-61); Albumin, Serum 3.8 g/dL (3.2-5.0); Alkaline Phosphatase 53 U/L (45-117); Anion Gap 7 (5-15); BUN 9 mg/dL (7-18); BUN/Creat Ratio 11.3 RATIO (10-20); Calcium,Total 8.9 mg/dL (8.5-10.1); Chloride 98 mmol/L (98-107); EST Glomerular Filtration Rate 100 mL/min (>60); Est Glom Filt Rate - Afr Amer 121 mL/min (>60); Globulin 3.8 g/dL (2.2-4.2); Glucose 88 mg/dL (74-106); Potassium 3.3 mmol/L (3.5-5.1); Protein, Total 7.6 g/dL (6.4-8.2); Sodium Level 133 mmol/L (136-145)
== END ==
PROVIDERS: PCP Preventive Medicine Occupational Medicine; Referring Provider Internal Medicine Rheumatology; Visit Provider Internal Medicine Rheumatology
DX: M05.70 Rheumatoid arthritis with rheumatoid factor of unspecified site without organ or systems involvement (principal); G56.01 Carpal tunnel syndrome, right upper limb; M15.9 Polyosteoarthritis, unspecified; M47.892 Other spondylosis, cervical region; F41.9 Anxiety disorder, unspecified; K58.0 Irritable bowel syndrome with diarrhea; N40.1 Benign prostatic hyperplasia with lower urinary tract symptoms; Z79.899 Other long term (current) drug therapy
CPT/HCPCS: 36415; 80053; 85025

== ENCOUNTER 2020-07-16 10:36 | Outpatient (RCR) | payer MEDICARE, SELFPAY ==
[2020-04-24 11:59] VITALS: BMI 21.3
[2020-07-16] MEDS: COVID-19 VACC, MRNA(PFIZER)/PF 30 MCG/0.3 ML SYRINGE IM (08:44)
[2020-08-06] MEDS: COVID-19 VACC, MRNA(PFIZER)/PF 30 MCG/0.3 ML SYRINGE IM (08:27)
== END 2020-07-16 23:59 ==
LOC: IMMUN 10:36
PROVIDERS: PCP Preventive Medicine Occupational Medicine; Visit Provider Family Medicine
DX: Z23 Encounter for immunization (principal)
CPT/HCPCS: 0001A; 0002A

== ENCOUNTER → 2020-09-18 09:17 | Outpatient (CLI) | payer MEDICARE, SELFPAY ==
[2020-04-24 11:59] VITALS: BMI 21.3
[2020-09-18 10:03] LABS: Absolute Lymphocyte Count 0.81 X10^3/uL (0.83-4.51); Absolute Neutrophil Count 6.2 X10^3/uL (2.0-7.7); Basophil# 0.05 X10^3/uL; Basophil% 0.6 % (0-1); Eosinophil# 0.12 X10^3/uL; Eosinophils% 1.5 % (0-5); Hematocrit 37.8 % (40-54); Hemoglobin 12.4 g/dL (13.0-16.5); Lymphocyte # 0.81 X10^3/ul (0.83-4.51); Lymphocyte % 10.2 % (19-41); Mean Corp Hgb Conc 32.8 g/dL (32-36); Mean Corpuscular Hgb 31.4 pg (27.0-32.0); Mean Corpuscular Volume 95.7 fL (80-94); Mean Platelet Vol. 9.5 fl (6.2-12.0); Monocyte% 8.8 % (0-10); NRBC Flagged by Analyzer 0 % (0-5); Neutrophil # 6.24 X10^3/uL (2.7-7.7); Neutrophil % 78.5 % (47-70); Platelet Count 338 K/mm3 (150-450); RBC Distribution Width CV 12.6 % (11.6-14.6); RBC Distribution Width SD 44.1 fl (35.1-43.9); Red Blood Count 3.95 M/mm3 (4.6-6.2)
[2020-09-18 11:09] LABS: ALB/GLOB Ratio 0.9 RATIO (0.9-2.4); AST(SGOT) 12 U/L (15-37); Alanine Aminotransfer ALT/SGPT 14 U/L (16-61); Albumin, Serum 3.8 g/dL (3.2-5.0); Alkaline Phosphatase 67 U/L (45-117); Anion Gap 7 (5-15); BUN 7 mg/dL (7-18); BUN/Creat Ratio 8.9 RATIO (10-20); Calcium,Total 9.1 mg/dL (8.5-10.1); Chloride 96 mmol/L (98-107); Creatinine, Serum 0.79 mg/dL (0.70-1.30); EST Glomerular Filtration Rate 102 mL/min (>60); Est Glom Filt Rate - Afr Amer 123 mL/min (>60); Globulin 4.1 g/dL (2.2-4.2); Glucose 104 mg/dL (74-106); Protein, Total 7.9 g/dL (6.4-8.2); Sodium Level 130 mmol/L (136-145)
== END ==
PROVIDERS: PCP Preventive Medicine Occupational Medicine; Referring Provider Internal Medicine Rheumatology; Visit Provider Internal Medicine Rheumatology
DX: M05.70 Rheumatoid arthritis with rheumatoid factor of unspecified site without organ or systems involvement (principal); G56.01 Carpal tunnel syndrome, right upper limb; M15.9 Polyosteoarthritis, unspecified; M47.892 Other spondylosis, cervical region; F41.9 Anxiety disorder, unspecified; K58.0 Irritable bowel syndrome with diarrhea; N40.1 Benign prostatic hyperplasia with lower urinary tract symptoms; Z79.899 Other long term (current) drug therapy
CPT/HCPCS: 36415; 80053; 85025

== ENCOUNTER → 2020-10-29 11:03 | Outpatient (CLI) | payer MEDICARE, SELFPAY ==
[2020-04-24 11:59] VITALS: BMI 21.3
[2020-10-29 12:09] LABS: PSA,Total- Diagnostic 7.21 ng/mL (0.0-4.0)
== END ==
PROVIDERS: PCP Preventive Medicine Occupational Medicine; Visit Provider Urology
DX: R97.20 Elevated prostate specific antigen [PSA] (principal)
CPT/HCPCS: 36415; 84153

== ENCOUNTER → 2020-12-07 10:05 | Outpatient (CLI) | payer MEDICARE, SELFPAY ==
[2020-04-24 11:59] VITALS: BMI 21.3
[2020-12-07 12:20] LABS: Absolute Neutrophil Count 4.8 X10^3/uL (2.0-7.7); Basophil# 0.07 X10^3/uL; Basophil% 1.1 % (0-1); Eosinophil# 0.14 X10^3/uL; Eosinophils% 2.2 % (0-5); Hematocrit 35.2 % (40-54); Hemoglobin 11.9 g/dL (13.0-16.5); Lymphocyte % 9.6 % (19-41); Mean Corp Hgb Conc 33.8 g/dL (32-36); Mean Corpuscular Hgb 31.5 pg (27.0-32.0); Mean Corpuscular Volume 93.1 fL (80-94); Mean Platelet Vol. 9.1 fl (6.2-12.0); Monocyte# 0.57 X10^3/uL; Monocyte% 9.1 % (0-10); NRBC Flagged by Analyzer 0 % (0-5); Neutrophil # 4.82 X10^3/uL (2.7-7.7); Neutrophil % 77.4 % (47-70); POSITIVE DIFFERENTIAL YES; Platelet Count 315 K/mm3 (150-450); RBC Distribution Width CV 13.2 % (11.6-14.6); RBC Distribution Width SD 45.2 fl (35.1-43.9); Red Blood Count 3.78 M/mm3 (4.6-6.2); White Blood Count 6.2 K/mm3 (4.4-11.0)
[2020-12-07 12:30] LABS: Differential Indicated SCAN CRITERIA MET
[2020-12-07 12:45] LABS: ALB/GLOB Ratio 0.9 RATIO (0.9-2.4); AST(SGOT) 24 U/L (15-37); Alanine Aminotransfer ALT/SGPT 23 U/L (16-61); Albumin, Serum 3.8 g/dL (3.2-5.0); Alkaline Phosphatase 64 U/L (45-117); Anion Gap 8 (5-15); BUN 9 mg/dL (7-18); BUN/Creat Ratio 13.7 RATIO (10-20); Calcium,Total 8.7 mg/dL (8.5-10.1); Chloride 98 mmol/L (98-107); Creatinine, Serum 0.66 mg/dL (0.70-1.30); EST Glomerular Filtration Rate 125 mL/min (>60); Est Glom Filt Rate - Afr Amer 151 mL/min (>60); Globulin 4.1 g/dL (2.2-4.2); Glucose 92 mg/dL (74-106); Potassium 4.2 mmol/L (3.5-5.1); Protein, Total 7.9 g/dL (6.4-8.2); Sodium Level 131 mmol/L (136-145)
[2020-12-07 13:05] LABS: Platelet Estimate ADEQUATE (ADEQ); Red Cell Morphology NORM C+C NORMAL (NORM C&C)
== END ==
PROVIDERS: PCP Preventive Medicine Occupational Medicine; Referring Provider Internal Medicine Rheumatology; Visit Provider Internal Medicine Rheumatology
DX: M05.70 Rheumatoid arthritis with rheumatoid factor of unspecified site without organ or systems involvement (principal); G56.01 Carpal tunnel syndrome, right upper limb; M15.9 Polyosteoarthritis, unspecified; M47.892 Other spondylosis, cervical region; F41.9 Anxiety disorder, unspecified; K58.0 Irritable bowel syndrome with diarrhea; N40.1 Benign prostatic hyperplasia with lower urinary tract symptoms; Z79.899 Other long term (current) drug therapy
CPT/HCPCS: 36415; 80053; 85025

== ENCOUNTER → 2021-03-02 08:47 | Outpatient (CLI) | payer MEDICARE, SELFPAY ==
[2021-03-02 09:58] LABS: Absolute Lymphocyte Count 0.59 X10^3/uL (0.83-4.51); Absolute Neutrophil Count 4.2 X10^3/uL (2.0-7.7); Basophil# 0.05 X10^3/uL; Basophil% 0.9 % (0-1); Eosinophil# 0.22 X10^3/uL; Eosinophils% 3.9 % (0-5); Hematocrit 35.3 % (40-54); Hemoglobin 12.1 g/dL (13.0-16.5); Lymphocyte # 0.59 X10^3/ul (0.83-4.51); Lymphocyte % 10.5 % (19-41); Mean Corp Hgb Conc 34.3 g/dL (32-36); Mean Corpuscular Volume 93.4 fL (80-94); Mean Platelet Vol. 8.9 fl (6.2-12.0); Monocyte# 0.55 X10^3/uL; Monocyte% 9.8 % (0-10); NRBC Flagged by Analyzer 0 % (0-5); Neutrophil # 4.16 X10^3/uL (2.7-7.7); Neutrophil % 74.4 % (47-70); POSITIVE DIFFERENTIAL YES; Platelet Count 280 K/mm3 (150-450); RBC Distribution Width CV 13.5 % (11.6-14.6); RBC Distribution Width SD 46.1 fl (35.1-43.9); Red Blood Count 3.78 M/mm3 (4.6-6.2); White Blood Count 5.6 K/mm3 (4.4-11.0)
[2021-03-02 10:06] LABS: Differential Indicated SCAN CRITERIA MET
[2021-03-02 10:14] LABS: ALB/GLOB Ratio 0.8 RATIO (0.9-2.4); AST(SGOT) 15 U/L (15-37); Alanine Aminotransfer ALT/SGPT 19 U/L (16-61); Albumin, Serum 3.5 g/dL (3.2-5.0); Alkaline Phosphatase 66 U/L (45-117); Anion Gap 7 (5-15); BUN 7 mg/dL (7-18); BUN/Creat Ratio 8.7 RATIO (10-20); Calcium,Total 8.9 mg/dL (8.5-10.1); Chloride 94 mmol/L (98-107); EST Glomerular Filtration Rate 99 mL/min (>60); Est Glom Filt Rate - Afr Amer 120 mL/min (>60); Globulin 4.3 g/dL (2.2-4.2); Glucose 99 mg/dL (74-106); Protein, Total 7.8 g/dL (6.4-8.2); Sodium Level 131 mmol/L (136-145)
== END ==
PROVIDERS: PCP Preventive Medicine Occupational Medicine; Referring Provider Internal Medicine Rheumatology; Visit Provider Internal Medicine Rheumatology
DX: M05.70 Rheumatoid arthritis with rheumatoid factor of unspecified site without organ or systems involvement (principal); G56.01 Carpal tunnel syndrome, right upper limb; M15.9 Polyosteoarthritis, unspecified; M47.892 Other spondylosis, cervical region; F41.9 Anxiety disorder, unspecified; K58.0 Irritable bowel syndrome with diarrhea; N40.1 Benign prostatic hyperplasia with lower urinary tract symptoms; Z79.899 Other long term (current) drug therapy
CPT/HCPCS: 36415; 80053; 85025

== ENCOUNTER 2021-05-17 09:18 | Outpatient (CLI) | payer MEDICARE, SELFPAY ==
[2021-05-17 10:12] LABS: Absolute Lymphocyte Count 0.77 X10^3/uL (0.83-4.51); Absolute Neutrophil Count 4.7 X10^3/uL (2.0-7.7); Basophil# 0.02 X10^3/uL; Basophil% 0.3 % (0-1); Eosinophil# 0.19 X10^3/uL; Eosinophils% 3.1 % (0-5); Hematocrit 37.5 % (40-54); Hemoglobin 12.5 g/dL (13.0-16.5); Lymphocyte # 0.77 X10^3/ul (0.83-4.51); Lymphocyte % 12.5 % (19-41); Mean Corp Hgb Conc 33.3 g/dL (32-36); Mean Corpuscular Hgb 31.1 pg (27.0-32.0); Mean Corpuscular Volume 93.3 fL (80-94); Mean Platelet Vol. 9.2 fl (6.2-12.0); Monocyte# 0.48 X10^3/uL; Monocyte% 7.8 % (0-10); NRBC Flagged by Analyzer 0 % (0-5); Neutrophil # 4.67 X10^3/uL (2.7-7.7); Neutrophil % 75.8 % (47-70); Platelet Count 275 K/mm3 (150-450); RBC Distribution Width CV 13.1 % (11.6-14.6); RBC Distribution Width SD 45.1 fl (35.1-43.9); Red Blood Count 4.02 M/mm3 (4.6-6.2); White Blood Count 6.2 K/mm3 (4.4-11.0)
[2021-05-17 10:59] LABS: ALB/GLOB Ratio 0.9 RATIO (0.9-2.4); AST(SGOT) 17 U/L (15-37); Alanine Aminotransfer ALT/SGPT 23 U/L (16-61); Albumin, Serum 3.6 g/dL (3.2-5.0); Alkaline Phosphatase 58 U/L (45-117); Anion Gap 6 (5-15); BUN 9 mg/dL (7-18); BUN/Creat Ratio 12.6 RATIO (10-20); Calcium,Total 9.1 mg/dL (8.5-10.1); Chloride 101 mmol/L (98-107); Creatinine, Serum 0.72 mg/dL (0.70-1.30); EST Glomerular Filtration Rate 113 mL/min (>60); Est Glom Filt Rate - Afr Amer 137 mL/min (>60); Globulin 4.1 g/dL (2.2-4.2); Glucose 96 mg/dL (74-106); Potassium 4.1 mmol/L (3.5-5.1); Protein, Total 7.7 g/dL (6.4-8.2); Sodium Level 134 mmol/L (136-145)
== END 2021-05-17 23:59 | disposition short-term general hospital (02) ==
LOC: MTLAB 09:19
PROVIDERS: PCP Preventive Medicine Occupational Medicine; Referring Provider Internal Medicine Rheumatology; Visit Provider Internal Medicine Rheumatology
DX: M05.70 Rheumatoid arthritis with rheumatoid factor of unspecified site without organ or systems involvement (principal); G56.01 Carpal tunnel syndrome, right upper limb; M19.041 Primary osteoarthritis, right hand; M47.892 Other spondylosis, cervical region; F41.9 Anxiety disorder, unspecified; K58.0 Irritable bowel syndrome with diarrhea; N40.1 Benign prostatic hyperplasia with lower urinary tract symptoms; Z79.899 Other long term (current) drug therapy
CPT/HCPCS: 36415; 80053; 85025

== ENCOUNTER 2021-08-13 09:24 | Outpatient (CLI) | payer MEDICARE, SELFPAY ==
[2021-08-13 12:21] LABS: Absolute Lymphocyte Count 0.65 X10^3/uL (0.83-4.51); Absolute Neutrophil Count 4.1 X10^3/uL (2.0-7.7); Basophil# 0.04 X10^3/uL; Basophil% 0.7 % (0-1); Eosinophil# 0.18 X10^3/uL; Eosinophils% 3.3 % (0-5); Hematocrit 34.3 % (40-54); Lymphocyte # 0.65 X10^3/ul (0.83-4.51); Lymphocyte % 11.8 % (19-41); Mean Corpuscular Hgb 32.6 pg (27.0-32.0); Mean Corpuscular Volume 93.2 fL (80-94); Mean Platelet Vol. 9.5 fl (6.2-12.0); Monocyte# 0.54 X10^3/uL; Monocyte% 9.8 % (0-10); NRBC Flagged by Analyzer 0 % (0-5); Neutrophil # 4.08 X10^3/uL (2.7-7.7); Neutrophil % 73.9 % (47-70); Platelet Count 265 K/mm3 (150-450); RBC Distribution Width CV 12.9 % (11.6-14.6); Red Blood Count 3.68 M/mm3 (4.6-6.2); White Blood Count 5.5 K/mm3 (4.4-11.0)
[2021-08-13 12:38] LABS: ALB/GLOB Ratio 0.9 RATIO (0.9-2.4); AST(SGOT) 13 U/L (15-37); Alanine Aminotransfer ALT/SGPT 19 U/L (16-61); Albumin, Serum 3.4 g/dL (3.2-5.0); Alkaline Phosphatase 58 U/L (45-117); Anion Gap 5 (5-15); BUN 8 mg/dL (7-18); BUN/Creat Ratio 11.5 RATIO (10-20); Calcium,Total 8.7 mg/dL (8.5-10.1); Chloride 104 mmol/L (98-107); EST Glomerular Filtration Rate 117 mL/min (>60); Est Glom Filt Rate - Afr Amer 142 mL/min (>60); Globulin 3.8 g/dL (2.2-4.2); Glucose 88 mg/dL (74-106); Protein, Total 7.2 g/dL (6.4-8.2); Sodium Level 135 mmol/L (136-145)
== END 2021-08-13 23:59 | disposition home or self-care (01) ==
LOC: MTLAB 09:25
PROVIDERS: PCP Preventive Medicine Occupational Medicine; Referring Provider Internal Medicine Rheumatology; Visit Provider Internal Medicine Rheumatology
DX: M05.70 Rheumatoid arthritis with rheumatoid factor of unspecified site without organ or systems involvement (principal); G56.01 Carpal tunnel syndrome, right upper limb; M19.041 Primary osteoarthritis, right hand; M47.892 Other spondylosis, cervical region; F41.9 Anxiety disorder, unspecified; K58.0 Irritable bowel syndrome with diarrhea; N40.1 Benign prostatic hyperplasia with lower urinary tract symptoms; Z79.899 Other long term (current) drug therapy
CPT/HCPCS: 36415; 80053; 85025

== ENCOUNTER → 2021-11-02 | Outpatient (CLI) | payer MEDICARE, SELFPAY ==
[2021-11-02 09:39] LABS: PSA,Total- Diagnostic 6.97 ng/mL (0.0-4.0)
== END | disposition home or self-care (01) ==
LOC: LAB 08:46
PROVIDERS: PCP Preventive Medicine Occupational Medicine; Referring Provider Registered Nurse; Visit Provider Registered Nurse
DX: R97.20 Elevated prostate specific antigen [PSA] (principal)
CPT/HCPCS: 36415; 84153

== ENCOUNTER → 2021-11-12 | Outpatient (CLI) | payer MEDICARE, SELFPAY ==
[2021-11-12 12:38] LABS: Absolute Lymphocyte Count 0.52 X10^3/uL (0.83-4.51); Basophil# 0.04 X10^3/uL; Basophil% 0.8 % (0-1); Eosinophil# 0.12 X10^3/uL; Eosinophils% 2.3 % (0-5); Hematocrit 38.1 % (40-54); Hemoglobin 13.1 g/dL (13.0-16.5); Lymphocyte # 0.52 X10^3/ul (0.83-4.51); Lymphocyte % 10.1 % (19-41); Mean Corp Hgb Conc 34.4 g/dL (32-36); Mean Corpuscular Hgb 32.7 pg (27.0-32.0); Mean Platelet Vol. 9.4 fl (6.2-12.0); Monocyte# 0.48 X10^3/uL; Monocyte% 9.3 % (0-10); NRBC Flagged by Analyzer 0.4 % (0-5); Neutrophil # 3.96 X10^3/uL (2.7-7.7); Neutrophil % 76.9 % (47-70); POSITIVE DIFFERENTIAL YES; Platelet Count 315 K/mm3 (150-450); RBC Distribution Width CV 13.2 % (11.6-14.6); RBC Distribution Width SD 46.3 fl (35.1-43.9); Red Blood Count 4.01 M/mm3 (4.6-6.2); White Blood Count 5.2 K/mm3 (4.4-11.0)
[2021-11-12 12:42] LABS: Differential Indicated SCAN CRITERIA MET
[2021-11-12 13:00] LABS: AST(SGOT) 16 U/L (15-37); Alanine Aminotransfer ALT/SGPT 17 U/L (16-61); Albumin, Serum 3.9 g/dL (3.2-5.0); Alkaline Phosphatase 59 U/L (45-117); Anion Gap 9 (5-15); BUN 7 mg/dL (7-18); BUN/Creat Ratio 9.9 RATIO (10-20); Calcium,Total 9.1 mg/dL (8.5-10.1); Chloride 96 mmol/L (98-107); Creatinine, Serum 0.71 mg/dL (0.70-1.30); EST Glomerular Filtration Rate 115 mL/min (>60); Est Glom Filt Rate - Afr Amer 139 mL/min (>60); Globulin 3.8 g/dL (2.2-4.2); Glucose 95 mg/dL (74-106); Potassium 4.2 mmol/L (3.5-5.1); Protein, Total 7.7 g/dL (6.4-8.2); Sodium Level 131 mmol/L (136-145)
[2021-11-12 14:05] LABS: Platelet Estimate ADEQUATE (ADEQ); Red Cell Morphology NORM C+C NORMAL (NORM C&C)
== END | disposition home or self-care (01) ==
LOC: MTLAB 09:05
PROVIDERS: PCP Preventive Medicine Occupational Medicine; Referring Provider Internal Medicine Rheumatology; Visit Provider Internal Medicine Rheumatology
DX: M05.70 Rheumatoid arthritis with rheumatoid factor of unspecified site without organ or systems involvement (principal); G56.01 Carpal tunnel syndrome, right upper limb; M19.041 Primary osteoarthritis, right hand; M47.892 Other spondylosis, cervical region; F41.9 Anxiety disorder, unspecified; K58.0 Irritable bowel syndrome with diarrhea; N40.1 Benign prostatic hyperplasia with lower urinary tract symptoms; Z79.899 Other long term (current) drug therapy
CPT/HCPCS: 36415; 80053; 85025

== ENCOUNTER → 2022-02-07 | Outpatient (CLI) | payer MEDICARE, SELFPAY ==
[2022-02-07 12:12] LABS: Absolute Lymphocyte Count 0.62 X10^3/uL (0.83-4.51); Absolute Neutrophil Count 3.8 X10^3/uL (2.0-7.7); Basophil# 0.05 X10^3/uL; Eosinophil# 0.07 X10^3/uL; Eosinophils% 1.4 % (0-5); Hematocrit 35.9 % (40-54); Hemoglobin 12.2 g/dL (13.0-16.5); Lymphocyte # 0.62 X10^3/ul (0.83-4.51); Lymphocyte % 12.6 % (19-41); Mean Corpuscular Hgb 32.8 pg (27.0-32.0); Mean Corpuscular Volume 96.5 fL (80-94); Mean Platelet Vol. 9.1 fl (6.2-12.0); Monocyte# 0.41 X10^3/uL; Monocyte% 8.3 % (0-10); NRBC Flagged by Analyzer 0 % (0-5); Neutrophil # 3.77 X10^3/uL (2.7-7.7); Neutrophil % 76.3 % (47-70); Platelet Count 266 K/mm3 (150-450); RBC Distribution Width SD 46.1 fl (35.1-43.9); Red Blood Count 3.72 M/mm3 (4.6-6.2); White Blood Count 4.9 K/mm3 (4.4-11.0)
[2022-02-07 12:42] LABS: AST(SGOT) 16 U/L (15-37); Alanine Aminotransfer ALT/SGPT 20 U/L (16-61); Albumin, Serum 3.6 g/dL (3.2-5.0); Alkaline Phosphatase 53 U/L (45-117); Anion Gap 7 (5-15); BUN 7 mg/dL (7-18); BUN/Creat Ratio 9.2 RATIO (10-20); Calcium,Total 8.9 mg/dL (8.5-10.1); Chloride 96 mmol/L (98-107); Creatinine, Serum 0.76 mg/dL (0.70-1.30); EST Glomerular Filtration Rate 105 mL/min (>60); Est Glom Filt Rate - Afr Amer 127 mL/min (>60); Globulin 3.7 g/dL (2.2-4.2); Glucose 100 mg/dL (74-106); Potassium 4.5 mmol/L (3.5-5.1); Protein, Total 7.3 g/dL (6.4-8.2); Sodium Level 130 mmol/L (136-145)
== END | disposition home or self-care (01) ==
LOC: MTLAB 10:22
PROVIDERS: PCP Preventive Medicine Occupational Medicine; Referring Provider Internal Medicine Rheumatology; Visit Provider Internal Medicine Rheumatology
DX: M05.70 Rheumatoid arthritis with rheumatoid factor of unspecified site without organ or systems involvement (principal); M35.00 Sjogren syndrome, unspecified; M19.041 Primary osteoarthritis, right hand; M47.892 Other spondylosis, cervical region; F41.9 Anxiety disorder, unspecified; K58.0 Irritable bowel syndrome with diarrhea; N40.1 Benign prostatic hyperplasia with lower urinary tract symptoms
CPT/HCPCS: 36415; 80053; 85025

== ENCOUNTER → 2022-04-25 | Outpatient (CLI) | payer MEDICARE, SELFPAY ==
[2022-04-25 09:59] LABS: Absolute Lymphocyte Count 0.77 X10^3/uL (0.83-4.51); Absolute Neutrophil Count 4.2 X10^3/uL (2.0-7.7); Basophil# 0.07 X10^3/uL; Basophil% 1.2 % (0-1); Eosinophil# 0.12 X10^3/uL; Eosinophils% 2.1 % (0-5); Hematocrit 37.5 % (40-54); Hemoglobin 12.8 g/dL (13.0-16.5); Lymphocyte # 0.77 X10^3/ul (0.83-4.51); Lymphocyte % 13.5 % (19-41); Mean Corp Hgb Conc 34.1 g/dL (32-36); Mean Corpuscular Volume 96.6 fL (80-94); Mean Platelet Vol. 9.3 fl (6.2-12.0); Monocyte# 0.52 X10^3/uL; Monocyte% 9.1 % (0-10); NRBC Flagged by Analyzer 0 % (0-5); Neutrophil # 4.23 X10^3/uL (2.7-7.7); Neutrophil % 73.9 % (47-70); Platelet Count 306 K/mm3 (150-450); RBC Distribution Width SD 45.8 fl (35.1-43.9); Red Blood Count 3.88 M/mm3 (4.6-6.2); White Blood Count 5.7 K/mm3 (4.4-11.0)
[2022-04-25 10:41] LABS: ALB/GLOB Ratio 1.1 RATIO (0.9-2.4); AST(SGOT) 14 U/L (15-37); Alanine Aminotransfer ALT/SGPT 23 U/L (16-61); Albumin, Serum 3.9 g/dL (3.2-5.0); Alkaline Phosphatase 60 U/L (45-117); Anion Gap 7 (5-15); BUN 9 mg/dL (7-18); BUN/Creat Ratio 11.1 RATIO (10-20); Chloride 98 mmol/L (98-107); Creatinine, Serum 0.81 mg/dL (0.70-1.30); EST Glomerular Filtration Rate 98 mL/min (>60); Est Glom Filt Rate - Afr Amer 118 mL/min (>60); Globulin 3.5 g/dL (2.2-4.2); Glucose 102 mg/dL (74-106); Potassium 4.2 mmol/L (3.5-5.1); Protein, Total 7.4 g/dL (6.4-8.2); Sodium Level 132 mmol/L (136-145)
== END | disposition home or self-care (01) ==
PROVIDERS: PCP Preventive Medicine Occupational Medicine; Referring Provider Internal Medicine Rheumatology; Visit Provider Internal Medicine Rheumatology
DX: M05.70 Rheumatoid arthritis with rheumatoid factor of unspecified site without organ or systems involvement (principal); M35.00 Sjogren syndrome, unspecified; M19.041 Primary osteoarthritis, right hand; M47.892 Other spondylosis, cervical region; F41.9 Anxiety disorder, unspecified; K58.0 Irritable bowel syndrome with diarrhea; N40.1 Benign prostatic hyperplasia with lower urinary tract symptoms; Z79.899 Other long term (current) drug therapy
CPT/HCPCS: 36415; 80053; 85025

== ENCOUNTER → 2022-07-19 | Outpatient (CLI) | payer MEDICARE, SELFPAY ==
[2022-07-19 12:50] LABS: Absolute Lymphocyte Count 0.82 X10^3/uL (0.83-4.51); Basophil# 0.06 X10^3/uL; Basophil% 0.9 % (0-1); Eosinophil# 0.09 X10^3/uL; Eosinophils% 1.4 % (0-5); Hematocrit 48.5 % (40-54); Lymphocyte # 0.82 X10^3/ul (0.83-4.51); Lymphocyte % 12.6 % (19-41); Mean Corp Hgb Conc 35.1 g/dL (32-36); Mean Corpuscular Hgb 33.5 pg (27.0-32.0); Mean Corpuscular Volume 95.7 fL (80-94); Mean Platelet Vol. 9.1 fl (6.2-12.0); Monocyte# 0.48 X10^3/uL; Monocyte% 7.4 % (0-10); NRBC Flagged by Analyzer 0.3 % (0-5); Neutrophil % 76.9 % (47-70); Platelet Count 313 K/mm3 (150-450); RBC Distribution Width SD 45.6 fl (35.1-43.9); Red Blood Count 5.07 M/mm3 (4.6-6.2); White Blood Count 6.5 K/mm3 (4.4-11.0)
[2022-07-19 13:45] LABS: AST(SGOT) 19 U/L (15-37); Alanine Aminotransfer ALT/SGPT 24 U/L (16-61); Albumin, Serum 3.9 g/dL (3.2-5.0); Alkaline Phosphatase 54 U/L (45-117); Anion Gap 8 (5-15); BUN 9 mg/dL (7-18); BUN/Creat Ratio 10.4 RATIO (10-20); Calcium,Total 9.4 mg/dL (8.5-10.1); Chloride 96 mmol/L (98-107); Creatinine, Serum 0.87 mg/dL (0.70-1.30); EST Glomerular Filtration Rate 90 mL/min (>60); Est Glom Filt Rate - Afr Amer 109 mL/min (>60); Globulin 3.9 g/dL (2.2-4.2); Glucose 97 mg/dL (74-106); Potassium 4.5 mmol/L (3.5-5.1); Protein, Total 7.8 g/dL (6.4-8.2); Sodium Level 132 mmol/L (136-145)
== END | disposition home or self-care (01) ==
LOC: MTLAB 10:22
PROVIDERS: PCP Preventive Medicine Occupational Medicine; Referring Provider Internal Medicine Rheumatology; Visit Provider Internal Medicine Rheumatology
DX: M05.70 Rheumatoid arthritis with rheumatoid factor of unspecified site without organ or systems involvement (principal); M35.00 Sjogren syndrome, unspecified; M19.041 Primary osteoarthritis, right hand; M47.892 Other spondylosis, cervical region; F41.9 Anxiety disorder, unspecified; K58.9 Irritable bowel syndrome, unspecified; N40.1 Benign prostatic hyperplasia with lower urinary tract symptoms; Z79.899 Other long term (current) drug therapy
CPT/HCPCS: 36415; 80053; 85025

== ENCOUNTER → 2022-10-18 | Outpatient (CLI) | payer MEDICARE, SELFPAY ==
[2022-10-18 09:56] LABS: Absolute Lymphocyte Count 0.69 X10^3/uL (0.83-4.51); Absolute Neutrophil Count 4.1 X10^3/uL (2.0-7.7); Basophil# 0.06 X10^3/uL; Basophil% 1.1 % (0-1); Eosinophil# 0.13 X10^3/uL; Eosinophils% 2.4 % (0-5); Hematocrit 39.2 % (40-54); Hemoglobin 12.5 g/dL (13.0-16.5); Lymphocyte # 0.69 X10^3/ul (0.83-4.51); Lymphocyte % 12.6 % (19-41); Mean Corp Hgb Conc 31.9 g/dL (32-36); Mean Corpuscular Hgb 30.9 pg (27.0-32.0); Mean Corpuscular Volume 96.8 fL (80-94); Mean Platelet Vol. 9.1 fl (6.2-12.0); Monocyte# 0.49 X10^3/uL; Monocyte% 8.9 % (0-10); Neutrophil % 74.6 % (47-70); Platelet Count 267 K/mm3 (150-450); RBC Distribution Width CV 13.1 % (11.6-14.6); Red Blood Count 4.05 M/mm3 (4.6-6.2); White Blood Count 5.5 K/mm3 (4.4-11.0)
[2022-10-18 10:58] LABS: AST(SGOT) 20 U/L (15-37); Alanine Aminotransfer ALT/SGPT 13 U/L (16-61); Albumin, Serum 3.8 g/dL (3.2-5.0); Alkaline Phosphatase 58 U/L (45-117); Anion Gap 4 (5-15); BUN 6 mg/dL (7-18); BUN/Creat Ratio 9.3 RATIO (10-20); Chloride 99 mmol/L (98-107); Creatinine, Serum 0.65 mg/dL (0.70-1.30); EST Glomerular Filtration Rate 127 mL/min (>60); Est Glom Filt Rate - Afr Amer 153 mL/min (>60); Glucose 100 mg/dL (74-106); Potassium 4.5 mmol/L (3.5-5.1); Protein, Total 7.8 g/dL (6.4-8.2); Sodium Level 131 mmol/L (136-145)
== END | disposition home or self-care (01) ==
LOC: MTLAB 08:48
PROVIDERS: PCP Preventive Medicine Occupational Medicine; Referring Provider Internal Medicine Rheumatology; Visit Provider Internal Medicine Rheumatology
DX: M05.70 Rheumatoid arthritis with rheumatoid factor of unspecified site without organ or systems involvement (principal); M35.00 Sjogren syndrome, unspecified; Z79.899 Other long term (current) drug therapy
CPT/HCPCS: 36415; 80053; 85025

== ENCOUNTER → 2022-11-14 | Outpatient (CLI) | payer MEDICARE, SELFPAY ==
[2022-11-14 22:18] LABS: PSA,Total- Diagnostic 8.25 ng/mL (0.0-4.0)
== END | disposition home or self-care (01) ==
LOC: LAB 08:46
PROVIDERS: PCP Preventive Medicine Occupational Medicine; Referring Provider Urology; Visit Provider Urology
DX: R97.20 Elevated prostate specific antigen [PSA] (principal)
CPT/HCPCS: 36415; 84153; G0103

== ENCOUNTER → 2022-11-21 | Outpatient (CLI) | payer MEDICARE, SELFPAY ==
[2022-11-21 13:22] LABS: PSA,Total- Diagnostic 8.17 ng/mL (0.0-4.0)
== END | disposition home or self-care (01) ==
LOC: LAB 11:50
PROVIDERS: PCP Preventive Medicine Occupational Medicine; Referring Provider Urology; Visit Provider Urology
DX: R97.20 Elevated prostate specific antigen [PSA] (principal)
CPT/HCPCS: 36415; 84153

== ENCOUNTER → 2023-01-17 | Outpatient (CLI) | payer MEDICARE, SELFPAY ==
[2023-01-17 10:33] LABS: Absolute Lymphocyte Count 0.77 X10^3/uL (0.83-4.51); Absolute Neutrophil Count 3.4 X10^3/uL (2.0-7.7); Basophil# 0.07 X10^3/uL; Basophil% 1.5 % (0-1); Eosinophil# 0.14 X10^3/uL; Eosinophils% 2.9 % (0-5); Hemoglobin 12.5 g/dL (13.0-16.5); Lymphocyte # 0.77 X10^3/ul (0.83-4.51); Lymphocyte % 16.1 % (19-41); Mean Corp Hgb Conc 32.9 g/dL (32-36); Mean Corpuscular Hgb 31.8 pg (27.0-32.0); Mean Corpuscular Volume 96.7 fL (80-94); Mean Platelet Vol. 9.1 fl (6.2-12.0); Monocyte% 8.4 % (0-10); NRBC Flagged by Analyzer 0.8 % (0-5); Neutrophil # 3.37 X10^3/uL (2.7-7.7); Neutrophil % 70.5 % (47-70); Platelet Count 314 K/mm3 (150-450); RBC Distribution Width CV 13.1 % (11.6-14.6); Red Blood Count 3.93 M/mm3 (4.6-6.2); White Blood Count 4.8 K/mm3 (4.4-11.0)
[2023-01-17 11:10] LABS: ALB/GLOB Ratio 0.9 RATIO (0.9-2.4); AST(SGOT) 16 U/L (15-37); Alanine Aminotransfer ALT/SGPT 21 U/L (16-61); Albumin, Serum 3.5 g/dL (3.2-5.0); Alkaline Phosphatase 55 U/L (45-117); Anion Gap 5 (5-15); BUN 11 mg/dL (7-18); BUN/Creat Ratio 13.2 RATIO (10-20); Chloride 99 mmol/L (98-107); Creatinine, Serum 0.83 mg/dL (0.70-1.30); EST Glomerular Filtration Rate 95 mL/min (>60); Est Glom Filt Rate - Afr Amer 115 mL/min (>60); Globulin 3.9 g/dL (2.2-4.2); Glucose 133 mg/dL (74-106); Potassium 3.8 mmol/L (3.5-5.1); Protein, Total 7.4 g/dL (6.4-8.2); Sodium Level 132 mmol/L (136-145)
== END | disposition home or self-care (01) ==
LOC: MTLAB 08:47
PROVIDERS: PCP Preventive Medicine Occupational Medicine; Referring Provider Internal Medicine Rheumatology; Visit Provider Internal Medicine Rheumatology
DX: M05.70 Rheumatoid arthritis with rheumatoid factor of unspecified site without organ or systems involvement (principal); Z79.899 Other long term (current) drug therapy
CPT/HCPCS: 36415; 80053; 85025

== ENCOUNTER → 2023-04-12 | Outpatient (CLI) | payer MEDICARE, SELFPAY ==
[2023-04-12 10:31] LABS: Absolute Lymphocyte Count 0.69 X10^3/uL (0.83-4.51); Absolute Neutrophil Count 5.8 X10^3/uL (2.0-7.7); Basophil# 0.05 X10^3/uL; Basophil% 0.7 % (0-1); Eosinophil# 0.15 X10^3/uL; Hematocrit 38.2 % (40-54); Hemoglobin 12.6 g/dL (13.0-16.5); Lymphocyte # 0.69 X10^3/ul (0.83-4.51); Lymphocyte % 9.4 % (19-41); Mean Corpuscular Hgb 31.7 pg (27.0-32.0); Mean Platelet Vol. 9.1 fl (6.2-12.0); Monocyte# 0.66 X10^3/uL; NRBC Flagged by Analyzer 0 % (0-5); Neutrophil # 5.79 X10^3/uL (2.7-7.7); Neutrophil % 78.6 % (47-70); Platelet Count 300 K/mm3 (150-450); RBC Distribution Width CV 13.1 % (11.6-14.6); RBC Distribution Width SD 46.5 fl (35.1-43.9); Red Blood Count 3.98 M/mm3 (4.6-6.2); White Blood Count 7.4 K/mm3 (4.4-11.0)
[2023-04-12 11:06] LABS: ALB/GLOB Ratio 0.9 RATIO (0.9-2.4); AST(SGOT) 16 U/L (15-37); Alanine Aminotransfer ALT/SGPT 23 U/L (16-61); Albumin, Serum 3.5 g/dL (3.2-5.0); Alkaline Phosphatase 67 U/L (45-117); Anion Gap 6 (5-15); BUN 8 mg/dL (7-18); BUN/Creat Ratio 9.5 RATIO (10-20); Chloride 100 mmol/L (98-107); Creatinine, Serum 0.84 mg/dL (0.70-1.30); EST Glomerular Filtration Rate 94 mL/min (>60); Est Glom Filt Rate - Afr Amer 113 mL/min (>60); Globulin 3.8 g/dL (2.2-4.2); Glucose 99 mg/dL (74-106); Potassium 3.9 mmol/L (3.5-5.1); Protein, Total 7.3 g/dL (6.4-8.2); Sodium Level 133 mmol/L (136-145)
== END | disposition home or self-care (01) ==
PROVIDERS: PCP Preventive Medicine Occupational Medicine; Referring Provider Internal Medicine Rheumatology; Visit Provider Internal Medicine Rheumatology
DX: M05.70 Rheumatoid arthritis with rheumatoid factor of unspecified site without organ or systems involvement (principal); M35.00 Sjogren syndrome, unspecified; Z79.899 Other long term (current) drug therapy
CPT/HCPCS: 36415; 80053; 85025

== ENCOUNTER → 2023-05-16 | Outpatient (CLI) | payer MEDICARE, SELFPAY ==
[2023-05-16 10:58] LABS: PSA,Total- Diagnostic 8.36 ng/mL (0.0-4.0)
== END | disposition home or self-care (01) ==
PROVIDERS: PCP Preventive Medicine Occupational Medicine; Referring Provider Urology; Visit Provider Urology
DX: R97.20 Elevated prostate specific antigen [PSA] (principal)
CPT/HCPCS: 36415; 84153

== ENCOUNTER → 2023-07-10 | Outpatient (CLI) | payer MEDICARE, SELFPAY ==
--- OUTSIDE RECORDS SUMMARY | 2023-07-10 08:27 | XMS RPT_ITS | CCD ---
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 Name Role Phone Unavailable Primary Care Provider UnavailCHRISTELLE Oquendo Attending Unavailable MARLEY CUNNINGHAM Attending Unavailable MARLEY CUNNINGHAM Admitting Unavailable MARLEY CUNNINGHAM Referring Unavailable MARLEY CUNNINGHAM Referring Unavailable MARLEY CUNNINGHAM Referring Unavailable TRINIDAD HOPE Attending Unavailable TONY, CHRISTELLE Attending Unavailable TONY, CHRISTELLE Attending Unavailable TONY, CHRISTELLE Attending Unavailable JANETH NAVA Attending Unavailable TONY, CHRISTELLE Attending Unavailable TONY, CHRISTELLE Attending Unavailable MARLEY CUNNINGHAM Attending Unavailable MARLEY CUNNINGHAM Referring Unavailable THOMAS RICHARDS Attending Unavailable HAYLEE DASILVA Attending Unavailable Allergies Allergy Classification Reported Allergen(s) Allergy Type Date of Onset Reaction(s) Facility (10 sources) Acetaminophen / HYDROcodone; Translations: [HYDROCODONE-ACETA MINOPHEN] Drug Allergy 3 Swelling [facility] (10 sources) traMADol; Translations: [TRAMADOL] Drug Allergy 3 Other: See Comments [facility] Medications Current Medications Medication Drug Class(es) Dates Sig (Normalized) Sig (Original) cefadroxil 500 mg oral capsule (2 sources) Cephalosporin Antibacterial Start: 12-27-2022 End: 01-06-2023 take 1 capsule by mouth twice daily cefADROxil (DURICEF) 500 mg capsule Take 1 capsule by mouth twice daily for 10 days. 20 capsule 0 12/27/2022 01/06/2023 Active Completed/Discontinued Medications Medication Drug Class(es) Dates Sig (Normalized) Sig (Original) ALPRAZolam 2 mg oral tablet (16 sources) Benzodiazepine Start: 08-26-2022 take 1 tablet by mouth every eight hours as needed ALPRAZolam (XANAX) 2 mg tablet Take 2 mg by mouth three times daily as needed. 0 08/26/2022 Active Problems Active Problems Problem Classification Problem Date Documented Date Episodic/Chronic Anxiety disorders (9 sources) Anxiety; Translations: [Anxiety disorder, unspecified] Onset: 12-14-2022 12-14-2022 Chronic Diseases of mouth; excluding dental (9 sources) Xerostomia; Translations: [Disturbances of salivary secretion] Onset: 12-14-2022 12-14-2022 Episodic Immunizations and screening for infectious disease (1 source) Encounter for immunization; Translations: [Other specified vaccinations against streptococcus pneumoniae [pneumococcus]] Episodic Other aftercare (2 sources) Cochlear prosthesis in situ; Translations: [Encounter for other specified surgical aftercare] 01-10-2023 Episodic Other ear and sense organ disorders (9 sources) Sensorineural hearing loss, bilateral; Translations: [Sensorineural hearing loss, bilateral] Chronic Other ear and sense organ disorders (16 sources) Asymmetrical sensorineural hearing loss; Translations: [Sensorineural hearing loss, bilateral] Onset: 09-14-2022 Chronic Other ear and sense organ disorders (10 sources) Cochlear prosthesis in situ; Translations: [Cochlear implant status] Onset: 01-19-2023 01-19-2023 Chronic Other ear and sense organ disorders (1 source) Sensorineural hearing loss, bilateral; Translations: [Sensorineural hearing loss (SNHL) of both ears] Onset: 09-30-2022 Chronic Other ear and sense organ disorders (1 source) Bilateral tinnitus; Translations: [Tinnitus, bilateral] 01-19-2023 Episodic Residual codes; unclassified (9 sources) Obstructive sleep apnea syndrome; Translations: [Obstructive sleep apnea (adult) (pediatric)] Onset: 12-14-2022 12-14-2022 Chronic Residual codes; unclassified (1 source) H/O: risk factor; Translations: [Contact with and (suspected) exposure to noise] Episodic Rheumatoid arthritis and related disease (11 sources) Rheumatoid arthritis; Translations: [Rheumatoid arthritis, unspecified] Onset: 06-23-2018 12-14-2022 Chronic Past or Other Problems Problem Classification Problem Date Documented Date Episodic/Chronic Other nervous system disorders (1 source) Other acute postprocedural pain; Translations: [Post-op pain] Onset: 12-27-2022 Episodic Results Test Name Value Interpretation Reference Range Facil ity Encounters Encounter Date Encounter Type Care Provider Facility Start: 04-26-2023 End: 04-26-2023 ambulatory HAYLEE Vargas DASILVA Facility:[facility] Start: 02-21-2023 End: 02-21-2023 ambulatory CHRISTELLE JIMENEZ Facility:[facility] Start: 02-21-2023 End: 02-21-2023 Patient encounter procedure Christelle Jimenez AUD Work Phone: Audiology Procedures Date Procedure Procedure Detail Performing Clinician Start: 02-24-2023 HEARING IMPLANTABLE DEVICES (E.G. COCHLEAR IMPLANTS (CI), BONE ANCHORED (HAZEL), SENSORY DEVICES) Marilin Wells AuD Student Start: 01-19-2023 HEARING TEST/AUDIOGRAM Christelle Jimenez AUD Work Phone: Start: 09-30-2022 Mri brain brain stem w/o w/contrast material Trinidad Biswas MD Work Phone: Start: 09-12-2022 Ct orbit sella/post fossa/ear w/o contrast matrl Trinidad Biswas MD Work Phone: Plan of Treatment Date Care Activity Detail Author Start: 01-13-2023 Covid-19 Vaccine ( season) Covid-19 Vaccine () [facility] Start: 01-13-2023 Influenza vaccination [facility] Start: 05-15-2022 ADVANCE DIRECTIVE DISCUSSION ADVANCE DIRECTIVE DISCUSSION [facility] Start: 05-15-2022 DEPRESSION ASSESSMENT DEPRESSION ASSESSMENT [facility] Start: 04-10-2022 COVID-19 VACCINE (6 - Pfizer risk series) COVID-19 VACCINE (6 - Pfizer risk series) [facility] Start: 2004 RSV Vaccine (1 - 1-dose 60+ series) RSV Vaccine (1 - 1-dose 60+ series) [facility] Start: 02-17-1989 DIABETES SCREEN DIABETES SCREEN [facility] Start: 02-17-1989 Diabetes Screening Diabetes Screening [facility] Start: 02-17-1963 SHINGRIX VACCINE (1 of 2) SHINGRIX VACCINE (1 of 2) [facility] Start: 02-17-1963 Urine microalbumin profile [facility] Start: 02-17-1962 HEPATITIS C SCREENING HEPATITIS C SCREENING [facility] Start: 02-17-1950 PNEUMOCOCCAL: 65+ (1 - PCV) PNEUMOCOCCAL: 65+ (1 - PCV) [facility] End: 10-01-2023 Ct orbit sella/post fossa/ear w/o contrast matrl CT TEMP BONES WO IVCON Radiology Routine Sensorineural hearing loss (SNHL) of both ears 1 Occurrences starting 09/01/2022 until 10/01/2023 [facility] Work Phone: Immunizations Immunization Date Immunization Notes Care Provider Kimberly silva 02-13-2022 Seasonal trivalent influenza vaccine, adjuvanted, preservative free Sue Fernandezonnell [facility] Work Phone: 02-13-2022 zoster vaccine recombinant Sue Richardson [facility] Work Phone: 02-13-2022 influenza virus vacc ine, unspecified formulation Christelle BASSETT Work Phone: [facility] 08-15-2021 COVID-19 original vaccine, age 12+ yr, monovalent (PFIZER-BIONTECH - MENDEZ TOP) Thomas Richards AUD Work Phone: [facility] 08-15-2021 pneumococcal polysaccharide vaccine, 23 valent Sue Fernandezonnell [facility] Work Phone: 08-15-2021 zoster vaccine recombinant Sue Richardson [facility] Work Phone: 02-14-2021 COVID-19 original vaccine, age 12+ yr, monovalent (PFIZER-BIONTECH - PURPLE TOP) Thomas Richards AUD Work Phone: [facility] 01-31-2021 Seasonal trivalent influenza vaccine, adjuvanted, preservative free Sue Richardson [facility] Work Phone: 08-06-2020 COVID-19 original vaccine, age 12+ yr, monovalent (PFIZER-BIONTECH - PURPLE TOP) Thomas Richards AUD Work Phone: [facility] 07-16-2020 COVID-19 original vaccine, age 12+ yr, monovalent (PFIZER-BIONTECH - PURPLE TOP) Thomas Richards AUD Work Phone: [facility] 02-07-2020 Seasonal trivalent influenza vaccine, adjuvanted, preservative free Sue Richardson [facility] Work Phone: 09-27-2014 pneumococcal conjuga te vaccine, 13 valent Sue Richardson [facility] Work Phone: 09-17-2014 pneumococcal conjuga te vaccine, 13 valshanique Fernandezonnell [facility] Work Phone: 05-15-2013 zoster vaccine, live Sue snow [facility] Work Phone: 04-13-2013 zoster vaccine, live Sue snow [facility] Work Phone: 05-15-2003 pneumococcal polysaccharide vaccine, 23 valshanique Rogers Richardson [facility] Work Phone: 04-13-2003 pneumococcal polysaccharide vaccine, 23 valent Sue Richardson [facility] Work Phone: 05-15-1998 pneumococcal polysaccharide vaccine, 23 valent Sue [facility] Work Phone: Payers Date Payer Category Payer Unknown PRIMETIME PRIMET KIRA HMO POS [id number] 2022-Present [phone] [address] [place] [address] O [id number] 2022 Unknown [id number] Social History Date Type Detail Facility Start: 09-01-2022 [facility] Work Phone: History of tobacco use Current smoker [facility] Work Phone: History of tobacco use Cigarette Smoker [facility] Work Phone: Start: 09-01-2022 Tobacco use and exposure Smokeless tobacco non-user [facility] Work Phone: Start: 09-04-2022 End: 12-14-2022 Alcohol intake Ex-drinker (finding) [facility] Start: 09-01-2022 Tobacco Comment Quit about 11 years ago . [facility] Start: 1945 Sex Assigned At Male C [facility] Start: 09-04-2022 End: 09-14-2022 History of Social function [facility] Start: 09-04-2022 End: 09-14-2022 Tobacco use panel [facility] National Score (1-100), lower number is lower risk 64 [facility] Start: 08-01-2022 Gender identity Identifies as male gender (finding) [facility] Medical Equipment Procedure Code Equipment Code Equipment Origin al Text Equipment Identifier Dates Implant Cochlear Nucleus Profile With Slim Straight Electrode ([id number]) - [id number] Start: 12-27-2022 Cochlear Nucleus 8 Sound Processor ([id number]) N [id number] Start: 12-27-2022 Clinical Notes 09-01-2022 to 04-26-2023 Christelle Jimenez AUD - 02/21/2023 10:30 AM Christelle Jordan AUD - 02/20/2023 1:30 PM Haylee Brand, DANYELLE - 02/17/2023 5:46 PM Janeth Tong, DANYELLE - 02/09/2023 2:00 PM EDTPatient Instructions Note Date & Type Note Facility 04-26-2023 Note HNO ID: [id number] Author: Haylee Dasilva AUD Service: ? Author Type: Loss Claim Clerk Type: Progress Notes Filed: 04/26/2023 4:35 PM Note Text: [facility] [place] [facility] Balance [facility] COCHLEAR IMPLANT ADULT PROGRAMMING Name: Jamison Brito [facility]#: [id number] Date of Service: April 21, 2023 Date of : 1945 Age: [age] year old COCHLEAR IMPLANT INFORMATION (see below for all device details) Updated: April 26, 2023 RIGHT ear: Resound Omnia 9-R SN: [id number] / Encased mold w/canal lock SN: [id number] CAKE STRIPPER: SN: [id number] Fitting Date: 02/20/2023 Repair Warranty Expiration Date: 03/08/2023 Loss/Damage Expiration Date: 03/08/2026 Fitting Loss Claim Clerk: Danyelle Elam, CCC/A LEFT ear: External Processor: [employer]chle[employer] [id number] (N8) External Processor [employer] N8 Processor SN [id number] Magnet Strength 3i Internal Device Cochlear CI622 Inactive electrodes E1AND2 (non-auditory stim) Surgery Date 12/27/2022 Initial activation date 01/26/2023 Surgeon Marley Cunningham M.D. Accessories: TV streamer, mini luna, extra power extend rechargeable battery Wireless Accessory Set up Fee Paid: No HISTORY: Mr. Brito was seen for 3 month check of the device/s. He was accompanied to today's appointment by his . The patient reported: * No pain, redness, swelling at magnet site. * Wearing sound processor: all day every day. * Completed a practice book Dr. Nava gave to him in quiet. Has not continued listening practice since completion of the book. * Last Otology visit date: 01/10/2023 (Trinidad Hope PA-C) * Program 1 is used most commonly * Concerns: * Hears a chriping sound later in the day though can still hear speech * Blinking blue light has occurred randomly 2 times since his last visit, when this occurs the volume will cut out. Taking off the battery momentarily and replacing it resolves the issue. * Feels hearing aid is too loud and is wearing it at volume 1. * Set at volume 9 for implant and does not feel it is loud enough * Need increase in treble in the cochlear as he feels that it has too much laird. * Cochlear implant will pause once in a while when listening to tv VERIFICATION OF HEARING AID FUNCTION: Utilizing the Audioscan Verifit equipment, the patient?s hearing aid was evaluated. According to gain curve fitting method, the patient?s hearing aid is meeting target gain for average speech as well as possible given degree of hearing loss. With frequency specific adjustments based on gain curve and patient report, Mr. Brito reported a more tolerable volume level and sound quality of his hearing aid. Speech Intelligibility Index (SII) Verified at 100% adaptation level using NAL-NL2 targets. RIGHT Meeting targets from 500-3000 Hz UNAIDED AIDED Average (65 dB HL) 0 31 The results indicated the patient will have increased access to the sounds of speech and language when using these devices. AIDED AUDIOMETRIC TESTING: Audiologic testing was completed in the sound field with the speech processor(s) at user settings (Program: 1; Volume: 9; Sensitivity: 12.) before programming. See the SmartForm Audiogram for obtained thresholds. 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 NOTE: The contralateral ear was plugged and muffed during testing. The following testing and results were obtained: Vpsiwscpl-Iyqjmxc-Ieyvgcqap Words (CNC) Test Condition List # Phonemes Words Clinically significant change compared to previous visit? Clinically significant change compared to BEST? Clinically significant change compared to Evaluation (09/14/2022)? Left Ear 1 59% 32% no (16% on 02/21/2023) no (16% on 02/21/2023) NEW BEST TODAY no (16%) Bimodal 2 75% 52% no (60% on 02/21/2023) no (72% on 02/21/2023) no (72%) AZ BIO (quiet) Test Condition List # Score Clinically significant change compared to previous visit? Clinically significant change compared to BEST? Clinically significant change compared to Evaluation (09/14/2022)? Left Ear 1 42% yes, improved (7% on 02/21/2023) yes, improved (10% on 02/21/2023) NEW BEST TODAY yes, improved (10%) Bimodal 3 66% yes, improved (46% on 02/21/2023) no (56% on 02/21/2023) NEW BEST TODAY no (56%) AZ BIO (+5 SNR) Test Condition List # Score Clinically significant change compared to previous visit? Clinically significant change compared to BEST? Clinically significant change compared to Evaluation (09/14/2022)? Left Ear 2 1% Baseline Baseline (DNT) Bimodal 4 6% (DNT) yes, decreased (15% on 09/14/2022) yes, decreased (15%) Summary: Detection levels obtained at expected levels between 20-30 dB HL for 250-6000 Hz in the left CI only condition. Scores on CNC words in the left CI only condition and AzBIO in quiet improved in the left CI only and bimodal conditions. C (more content not included)... [facility] 02-21-2023 Note HNO ID: [id number] Author: Christelle Jimenez AUD Service: ? Author Type: Loss Claim Clerk Type: Progress Notes Filed: 02/24/2023 9:07 AM Note Text: [facility] [place] [facility], Speech and Balance [facility] COCHLEAR IMPLANT ADULT PROGRAMMING Name: Jamison Brito [facility]#: [id number] Date of Service: February 21, 2023 Date of : 1945 Age: [age] year old COCHLEAR IMPLANT INFORMATION (see below for all device details) Updated: February 21, 2023 RIGHT ear: Resound Omnia 9-R SN: [id number] / Encased mold w/canal lock SN: [id number] CAKE STRIPPER: SN: [id number] Fitting Date: 02/20/2023 Repair Warranty Expiration Date: 03/08/2023 Loss/Damage Expiration Date: 03/08/2026 Fitting Loss Claim Clerk: Danyelle Elam, CCC/A LEFT ear: External Processor: [employer]chle[employer] [id number] (N8) External Processor [employer] N8 Processor SN [id number] Magnet Strength 3i Internal Device Cochlear CI622 Inactive electrodes E1AND2 (non-auditory stim) Surgery Date 12/27/2022 Initial activation date 01/26/2023 Surgeon Marley Cunningham M.D. Accessories: TV streamer, mini luna, extra power extend rechargeable battery Wireless Accessory Set up Fee Paid: No HISTORY: Mr. Brito was seen for one month check of the device/s. The patient reported: * No pain, redness, swelling at magnet site. * Wearing sound processor: all waking hours * Feels like changing the volume on his CI processor remote is not changing the volume * Completing joint practice for 15-20 minutes a day every morning with his . They reported Jamison removes his right hearing aid and puts an earplug in and turns his head away from her (left ear towards the speaker) so that he isn't lip reading * Overall feels there are many words he is missing, and often only is repeating back familiar sentences (eg. I am at the bank ) * Last Otology visit date: Post-op on 01/10/2023 with Trinidad Hope PA-C * Questions about hearing aid, if need to close the lid to charge hearing aid * Feels since fitting hearing aid yesterday he can hear things he hasn't heard before (eg. Banking Center Manager answering the phone while he was in the waiting room) * Typically takes his hearing aid out to talk on the phone (uses caption phone at home) * Questions about hooking up TV streamer and three cords in the box. Would like to have someone come to his home to assist with connection * Noted he always seems to hear better when connected to CI software than with his battery HEARING AID CHECK / VERIFICATION - REAL EAR MEASURES Measurements to account for unique size and shape of the patient's ears in hearing aid programming included: Real Ear verification. Adjustments were made based on measurement of soft (55 dB HL), medium (65 dB HL), and loud (75 dB HL) speech, as well as maximum permissible output (MPO), to ensure the most appropriate amplification is being provided. Speech Intelligibility Index (SII) Verified at 100% adaptation level using NAL-NL1 targets. RIGHT Meeting targets from 500-2000 Hz UNAIDED AIDED Average (65 dB HL) 0 31 The results indicated the patient will have increased access to the sounds of speech and language when using these devices. After verification, patient reported overall sound was too loud through his hearing aid. Decreased to 90% target gain and then further decreased gain globally by 1 step for comfort. UNAIDED AUDIOMETRIC TESTING: Audiogram can be viewed under Proc tab. Right Ear: Not tested Left Ear: Frequency Comparison to Last Visit (01/19/2023) + =Improvement - =Decrease 125Hz +5 dB 250Hz +5 dB 500Hz +5 dB 750Hz +5 dB 1000Hz +5 dB 1500Hz +5 dB 2000Hz +5 dB 3000Hz NR 4000Hz NR 6000Hz NR 8000Hz NR AIDED AUDIOMETRIC TESTING: Audiologic testing was completed in the sound field with the speech processor(s) at user settings (Program: 1; Volume: 6; Sensitivity: 12.) before/after programming (see notes below). See the HERMEL DELOR Audiogram for obtained thresholds. 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 NOTE: The contralateral ear was plugged and muffed or masked during testing. The following testing and results were obtained: Dcqecjfhh-Lfzmbcc-Txyuktbxk Words (CNC) Test Condition List # Phonemes Words Clinically significant change compared to Evaluation (09/14/2022)? Left Ear (Before Programming) 7 35% 12% no (16%) Left Ear (After Programming) 6 36% 16% no (16%) Bimodal (After Programming) 9 80% 60% no (72%) AZ BIO (quiet) Test Condition List # Score Clinically significant change compared to Evaluation (09/14/2022)? Left Ear (After Programming) 2 7% no (10%) Bimodal (After Programming) 4 46% no (56%) Summary: Aided detection within the expected range (20-30 dB HL) from 250-3000 Hz following reprogramming, and slightly below expected range at 5975-5434 (more content not included)... [facility] 02-21-2023 History of Presen t illness Narrative [facility] [place] [facility] COCHLEAR IMPLANT ADULT PROGRAMMING Name: Jamison Brito [facility]#: [id number] Date of Service: February 21, 2023 Date of : 1945 Age: [age] year old COCHLEAR IMPLANT INFORMATION (see below for all device details) Updated: February 21, 2023 RIGHT ear: Resound Omnia 9-R SN: [id number] / Encased mold w/canal lock SN: [id number] CAKE STRIPPER: SN: [id number] Fitting Date: 02/20/2023 Repair Warranty Expiration Date: 03/08/2023 Loss/Damage Expiration Date: 03/08/2026 Fitting Loss Claim Clerk: Danyelle Elam, CCC/A LEFT ear: External Processor: [employer]chle[employer] [id number] (N8) External Processor [employer] N8 Processor SN [id number] Magnet Strength 3i Internal Device Cochlear CI622 Inactive electrodes E1&2 (non-auditory stim) Surgery Date 12/27/2022 Initial activation date 01/26/2023 Surgeon Marley Cunningham M.D. Accessories: TV streamer, mini luna, extra power extend rechargeable battery Wireless Accessory Set up Fee Paid: No HISTORY: Mr. Brito was seen for one month check of the device/s. The patient reported: * No pain, redness, swelling at magnet site. * Wearing sound processor: all waking hours * Feels like changing the volume on his CI processor remote is not changing the volume * Completing joint practice for 15-20 minutes a day every morning with his . They reported Jamison removes his right hearing aid and puts an earplug in and turns his head away from her (left ear towards the speaker) so that he isn't lip reading * Overall feels there are many words he is missing, and often only is repeating back familiar sentences (eg. I am at the bank ) * Last Otology visit date: Post-op on 01/10/2023 with Trinidad Hope PA-C * Questions about hearing aid, if need to close the lid to charge hearing aid * Feels since fitting hearing aid yesterday he can hear things he hasn't heard before (eg. Banking Center Manager answering the phone while he was in the waiting room) * Typically takes his hearing aid out to talk on the phone (uses [employer] Wireless [employer] phone at home) * Questions about hooking up TV streamer and three cords in the box. Would like to have someone come to his home to assist with connection * Noted he always seems to hear better when connected to CI software than with his battery HEARING AID CHECK / VERIFICATION - REAL EAR MEASURES Measurements to account for unique size and shape of the patient's ears in hearing aid programming included: Real Ear verification. Adjustments were made based on measurement of soft (55 dB HL), medium (65 dB HL), and loud (75 dB HL) speech, as well as maximum permissible output (MPO), to ensure the most appropriate amplification is being provided. Speech Intelligibility Index (SII) Verified at 100% adaptation level using NAL-NL1 targets. RIGHT Meeting targets from 500-2000 Hz UNAIDED AIDED Average (65 dB HL) 0 31 The results indicated the patient will have increased access to the sounds of speech and language when using these devices. After verification, patient reported overall sound was too loud through his hearing aid. Decreased to 90% target gain and then further decreased gain globally by 1 step for comfort. UNAIDED AUDIOMETRIC TESTING: Audiogram can be viewed under Proc tab. Right Ear: Not tested Left Ear: Frequency Comparison to Last Visit (01/19/2023) + =Improvement - =Decrease 125Hz +5 dB 250Hz +5 dB 500Hz +5 dB 750Hz +5 dB 1000Hz +5 dB 1500Hz +5 dB 2000Hz +5 dB 3000Hz NR 4000Hz NR 6000Hz NR 8000Hz NR AIDED AUDIOMETRIC TESTING: Audiologic testing was completed in the sound field with the speech processor(s) at user settings (Program: 1; Volume: 6; Sensitivity: 12.) before/after programming (see notes below). See the SmartForm Audiogram for obtained thresholds. 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 NOTE: The contralateral ear was plugged and muffed or masked during testing. The following testing and results were obtained: Mznxtmdry-Gmoklgj-Kbwvatjgi Words (CNC) Test Condition List # Phonemes Words Clinically significant change compared to Evaluation (09/14/2022)? Left Ear (Before Programming) 7 35% 12% no (16%) Left Ear (After Programming) 6 36% 16% no (16%) Bimodal (After Programming) 9 80% 60% no (72%) AZ BIO (quiet) Test Condition List # Score Clinically significant change compared to Evaluation (09/14/2022)? Left Ear (After Programming) 2 7% no (10%) Bimodal (After Programming) 4 46% no (56%) Summary: Aided detection within the expected range (20-30 dB HL) from 250-3000 Hz following reprogramming, and slightly below expected range at 5332-4423 Hz. Speech scores demonstrate stable scores when compared to CI eval both for left ear only and bimodal/bilateral conditions. COCHLEAR IMPLANT PROGRAMMING/TROUBLESHOOTING: Dataloggin hours/day LEFT Programming: Headset pressure, magnet strength, and incision site were checked with no problems noted. Electrode impedances, used to monitor internal device function, were measured across the electrode array. Impedances were WNL across all active electrodes. Review of impedances obtained today with comparison to previous visits did not identify any remarkable changes or atypical measurements. Programming consisted of adjusting Threshold (T) levels based on detection obtained in the soundfield today, and setting Comfort (C) levels at loud, but comfortable using a loudness scale. Several active electrodes were measured and the rest were interpolated. Overall C levels increased significantly across the array. Before going live, c's were globally decreased 3 cu's. He reported the sound was too loud, so c's were further decreased 2 cu's. Jamison reported the sound was more comfortable. Because of concerns for reduced loudness with his battery vs. When connected to programming software, changed to manual power 64 from auto (44). The function/use of the programs created were discussed and are listed below: Left Ear Program/Map # Program Feature 1 14 SCAN 2 (ADRO + ASC), SNR-NR,WNR Active controls include: volume. Assisted patient and his pairing hearing aid and CI processor to his 's phone and demonstrated volume control. Note: At various times throughout today's appointment patient would report sound was comfortable loudness, and then a few minutes later that sound was too loud. This fluctuation did not appear to be reflective of one device or the other, or related to any other changes in the environment or loudness of other's voices. Patient was counseled on importance of adjusting to loudness and concern he has been under-stimulated in both ears. Patient preferred volume turned down to level 4 for hearing aid and CI processor (default for both is set to 6), despite feeling as though volume level 6 was comfortable just a few minutes prior. Battery Life: Rechargeable: 15 hours Disposable: 24 hours SUMMARY AND RECOMMENDATIONS: Assistive Technologies: The potential benefit of assistive devices such as using Integrated Plasmonics Smart twan and TV streamer was reviewed. Reviewed TV streamer only needs a power cord and either one of the audio streaming cables, not both, per instructions included in TV streamer setup guide. Counseling Points: * Reviewed listening practice exercises * Discussed gradually increasing volume to 6 for both devices * Continue to monitor magnet/incision site for pain, redness, swelling, scabbing etc. Should any of these occur discontinue use of device immediately and contact the office. * Continue use of right hearing aid and left processor during all waking hours. Follow-up Programming: It was recommended that the patient return in 2 months for monitoring of auditory performance and potential programming needs. The center should be contacted if there are problems or concerns before that time. NOTE: It should be noted that the patient left the appointment with all the equipment. None of the patient's equipment was left in the Audiology Section of the Clinic. TOTAL TIME: 110 minutes Programming right 15 minutes Programming left 20 minutes Evaluation of auditory status 40 minutes AMARJIT Mccall Audiology Student Danyelle Elam, [facility] Clinical and Hearing Implant Loss Claim Clerk documented in this encounter [facility] 02-20-2023 Note HNO ID: [id number] Author: Christelle Jimenez AUD Service: ? Author Type: Loss Claim Clerk Type: Progress Notes Filed: 02/22/2023 12:36 PM Note Text: [facility] [place] HEARING AID FITTING Name: Jamison Brito [facility]#: [id number] Date of Service: 02/20/2023 Date of : 1945 Age: [age] year old DEVICE INFORMATION RIGHT: Resound Omnia 9-R SN: [id number] HP / large power dome LEFT: Cochlear Americas Nucleus 8 SN: [id number] CAKE STRIPPER: SN: [id number] Fitting Date: 02/20/2023 Repair Warranty Expiration Date: 03/08/2023 Loss/Damage Expiration Date: 03/08/2023 Fitting Loss Claim Clerk: Danyelle Elam, FACUNDO/Magi Wax Traps: GN ReSound WaxFilter (stick) Retention: Custom ear mold Remote Support Activated: Yes Phone Connectivity: Yes Twan Connectivity: Yes SUBJECTIVE ASSESSMENT Jamison Brito, was seen today for a hearing aid fitting of the above device which were fit to their initial needs. Power encased mold received, but in [place] office, and not able to be fit today. Will be fit tomorrow at CI follow-up in [place]. PROGRAMMING The device(s) were programmed accordingly to address the outcome measures and patient's comments. Fitting Formula: Audiogram+ Acclimatization: 100% Volume Control: Yes (single push for min volume) Feedback Health Officer: Yes Data Logging: Active Additional programming included: Decreased gain at 250-500 Hz down by 6 further decreased gain globally for soft and moderate inputs by 2 steps Hearing Aid Programs P1 All-Around P2 Restaurant Patient was satisfied with the sound quality and fit of the devices today. He immediately noted the improved sound and clarity from this hearing aid when compared to his old Oticon hearing aid. Patient's old Oticon hearing aid was placed in soft case in Resound box. COUNSELING Device counseling was provided covering the following points: 1. use of the rechargeable unit 2. device insertion and removal 3. will review at next appointment 4. connecting smart phone (Android) 5. demonstrating house wirer apps 6. use of other accessories Patient counseling was provided addressing the following points: 1. use/wear time 2. realistic expectations and need to return for fine-tuning 3. communication strategies to optimize hearing aid performance FINANCIAL COMPONENT The following were completed by provider and signed by patient: Purchase Agreement, Hearing Aid Fitting Checklist, Loss and Damage Warranty policy, and Repair/Remake Fee schedule policy. The original paperwork was given to patient and copies will be scanned into [employer]. Patient has partial insurance coverage and will be responsible for partial cost of the devices. He was taken to the front office coordinator to pay the amount over the insurance benefit of $2800. Total cost of the devices is $2600 plus the $300 nonrefundable fitting fee will be submitted to insurance. RECOMMENDATIONS * Return within the 30 day Chcyk-xv-Zhijlf Period for the Hearing Aid Dispensing Appointment. * Contact your cnc cutting operator if you have any issues prior to your next appointment to address the issue in a timely manner. OfferIQ message or call and request a call back from Danyelle Elam CCC/Magi. Rico German Doctor of Audiology (Danyelle) Genetic Scientist This appointment was conducted under the direct supervision of Danyelle Elam CCC/Magi. Danyelle Elam CCC-A Clinical and Hearing Implant Loss Claim Clerk [facility] 02-20-2023 History of Presen t illness Narrative [facility] [place] HEARING AID FITTING Name: Jamison Brito [facility]#: [id number] Date of Service: 02/20/2023 Date of : 1945 Age: [age] year old DEVICE INFORMATION RIGHT: Resound Omnia 9-R SN: [id number] HP / large power dome LEFT: Cochlear Americas Nucleus 8 SN: [id number] CAKE STRIPPER: SN: [id number] Fitting Date: 02/20/2023 Repair Warranty Expiration Date: 03/08/2023 Loss/Damage Expiration Date: 03/08/2023 Fitting Loss Claim Clerk: Danyelle Elam CCC/Magi Wax Traps: GN ReSound WaxFilter (stick) Retention: Custom ear mold Remote Support Activated: Yes Phone Connectivity: Yes Twan Connectivity: Yes SUBJECTIVE ASSESSMENT Jamison Brito, was seen today for a hearing aid fitting of the above device which were fit to their initial needs. Power encased mold received, but in [place] office, and not able to be fit today. Will be fit tomorrow at CI follow-up in [place]. PROGRAMMING The device(s) were programmed accordingly to address the outcome measures and patient's comments. Fitting Formula: Audiogram+ Acclimatization: 100% Volume Control: Yes (single push for min volume) Feedback Health Officer: Yes Data Logging: Active Additional programming included: Decreased gain at 250-500 Hz down by 6 further decreased gain globally for soft and moderate inputs by 2 steps Hearing Aid Programs P1 All-Around P2 Restaurant Patient was satisfied with the sound quality and fit of the devices today. He immediately noted the improved sound and clarity from this hearing aid when compared to his old Oticon hearing aid. Patient's old Oticon hearing aid was placed in soft case in Resound box. COUNSELING Device counseling was provided covering the following points: 1. use of the rechargeable unit 2. device insertion and removal 3. will review at next appointment 4. connecting smart phone (Android) 5. demonstrating house wirer apps 6. use of other accessories Patient counseling was provided addressing the following points: 1. use/wear time 2. realistic expectations and need to return for fine-tuning 3. communication strategies to optimize hearing aid performance FINANCIAL COMPONENT The following were completed by provider and signed by patient: Purchase Agreement, Hearing Aid Fitting Checklist, Loss and Damage Warranty policy, and Repair/Remake Fee schedule policy. The original paperwork was given to patient and copies will be scanned into [employer]. Patient has partial insurance coverage and will be responsible for partial cost of the devices. He was taken to the front office coordinator to pay the amount over the insurance benefit of $2800. Total cost of the devices is $2600 plus the $300 nonrefundable fitting fee will be submitted to insurance. RECOMMENDATIONS * Return within the 30 day Yjjnv-iw-Udgpwb Period for the Hearing Aid Dispensing Appointment. * Contact your cnc cutting operator if you have any issues prior to your next appointment to address the issue in a timely manner. Sparkcloudt message or call and request a call back from Danyelle Elam CCC/Magi. Jet German. Doctor of Audiology (Danyelle) Genetic Scientist This appointment was conducted under the direct supervision of Danyelle Elam CCC/Magi. Danyelle Elam CCC-A Clinical and Hearing Implant Loss Claim Clerk documented in this encounter [facility] 02-17-2023 Note HNO ID: [id number] Author: Haylee Dasilva AUD Service: ? Author Type: Loss Claim Clerk Type: Progress Notes Filed: 02/17/2023 5:48 PM Note Text: [facility] EARMOLD RECEIVED Name: Jamison Brito [facility]#: [id number] Date of Service: 02/17/2023 Date of : 1945 Age: [age] year old DEVICE INFORMATION RIGHT: Resound Omnia 9-R SN: [id number] HP / Encased mold with canal lock SN: [id number] CAKE STRIPPER: SN: [id number] SUBJECTIVE ASSESSMENT Received the encased mold with canal lock listed above from house wirer at the [place] office. Earmold was placed in the audiology cupboard and managing cnc cutting operator was notified. Danyelle Yates CCC-A Clinical and Senior Hearing Implant Loss Claim Clerk [facility] 02-17-2023 History of Presen t illness Narrative [facility] EARMOLD RECEIVED Name: Jamison Brito [facility]#: [id number] Date of Service: 02/17/2023 Date of : 1945 Age: [age] year old DEVICE INFORMATION RIGHT: Resound Omnia 9-R SN: [id number] HP / Encased mold with canal lock SN: [id number] CAKE STRIPPER: SN: [id number] SUBJECTIVE ASSESSMENT Received the encased mold with canal lock listed above from house wirer at the [place] office. Earmold was placed in the audiology cupboard and managing cnc cutting operator was notified. Danyelle Yates CCC-A Clinical and Senior Hearing Implant Loss Claim Clerk documented in this encounter [facility] 02-09-2023 Note HNO ID: [id number] Author: Janeth Nava AUD Service: ? Author Type: Loss Claim Clerk Type: Progress Notes Filed: 02/09/2023 3:58 PM Note Text: ADULT POST-ACTIVATION AUDITORY-BASED THERAPY SESSION Name: Jamison Brito [facility] #: [id number] Date: 02/09/2023 Jamison attended an approximately 60-minute session with this clinician, to review CI post-activation status and review audiologic rehabilitation options/materials available. He was accompanied by his Jennifer. RIGHT ear: Oticon Exceed 2 SP BTE coupled to canal lock earmold and was fit at an outside facility and is being managed by that facility. LEFT ear: External Processor: Cochlear Americas [id number] (N8) External Processor Cochlear Americas N8 Processor SN [id number] Magnet Strength 3i Internal Device Cochlear CI622 Inactive electrodes E1AND2 (non-auditory stim) Surgery Date 12/27/2022 Initial activation date 01/26/2023 Surgeon Marley Cunningham M.D. 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 Began wearing hearing aids in 1999. Today, Jamison reported that he has been wearing the CI processor 15 hours/day. He has noticed some improvement in his hearing, as he is picking up sounds he did not hear with his hearing aids, like the clock and refrigerator motor. Speech is still difficult for him to understand. He and Jennifer have been practicing with word lists at home with the right hearing aid removed. Does not use a smartphone. Prefers partner practice. SESSION DETAILS: The right hearing aid was removed and the right ear was plugged during Ling 6 and the auditory screening measure. The Ling 6 Sound Test was presented auditorily via an acoustic hoop/screen or the hand-cue. The 6 sounds: /m, u (oo), a (ah), i (ee), sh, s/ represent the speech acoustics of low, mid, and high frequency sound stimuli. Results of the Ling 6 Sound Test presented at approximately 3 feet indicated the following: Repeated /u, a, i, sh, s/. Said /u/ for /m/. The [facility] Adult Auditory Screening Procedure was completed. The patient had a score of 31/62. Results indicate good pattern perception and good performance on closed set single word tasks. He had difficulty with closed set sentences and open set material. Demonstrated and practiced with Cochlear Dahlia's Hearing Therapy Manual. Page 17 Round 1: Talker familiarizes listener with both words (e.g., theme, thumb ) and then presents the target word for the listener to guess. Round 2: Talker does not familiarize but presents the target word for the listener to guess. Round 3: Talker makes up a short sentence with the target word in it. The listener repeats the sentence. Discussed expanding their current home practice to sentence-length material. Discussed the auditory sandwich approach - If an item is missed, present it again. If missed again, provide visual cues. Follow-up with auditory-only. Listening practice should be completed with the right hearing aid out and minimal visual cues unless needed for reinforcement. TAKE-HOME ACTIVITIES/Homework: 1. Cochlear Hearing Therapy Manual - see above 2. Adding short sentences to the word list practice they have been doing. IMPRESSIONS Jamison demonstrates good auditory detection and discrimination, as well as good closed set word abilities. He had difficulty with phrase and sentence-length material with the left CI only. He was able to follow along with conversational speech with significant visual cues. Recommend at-home auditory based practice to improve word and phrase/sentence understanding. Clinician recommended completing home-based materials as discussed and returning for follow-up appointment(s) as needed. Gloria Terry M.A., [facility] Clinical Loss Claim Clerk [facility] 02-09-2023 History of Presen t illness Narrative ADULT POST-ACTIVATION AUDITORY-BASED THERAPY SESSION Name: Jamison Brito [facility] #: [id number] Date: 02/09/2023 Jamison attended an approximately 60-minute session with this clinician, to review CI post-activation status and review audiologic rehabilitation options/materials available. He was accompanied by his Jennifer. RIGHT ear: Oticon Exceed 2 SP BTE coupled to canal lock earmold and was fit at an outside facility and is being managed by that facility. LEFT ear: External Processor: Cochlear Americas [id number] (N8) External Processor Cochlear Americas N8 Processor SN [id number] Magnet Strength 3i Internal Device Cochlear CI622 Inactive electrodes E1&2 (non-auditory stim) Surgery Date 12/27/2022 Initial activation date 01/26/2023 Surgeon Marley Cunningham M.D. 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 Began wearing hearing aids in 1999. Today, Jamison reported that he has been wearing the CI processor 15 hours/day. He has noticed some improvement in his hearing, as he is picking up sounds he did not hear with his hearing aids, like the clock and refrigerator motor. Speech is still difficult for him to understand. He and Jennifer have been practicing with word lists at home with the right hearing aid removed. Does not use a smartphone. Prefers partner practice. SESSION DETAILS: The right hearing aid was removed and the right ear was plugged during Ling 6 and the auditory screening measure. The Ling 6 Sound Test was presented auditorily via an acoustic hoop/screen or the hand-cue. The 6 sounds: /m, u (oo), a (ah), i (ee), sh, s/ represent the speech acoustics of low, mid, and high frequency sound stimuli. Results of the Ling 6 Sound Test presented at approximately 3 feet indicated the following: Repeated /u, a, i, sh, s/. Said /u/ for /m/. [facility] Adult Auditory Screening Procedure was completed. The patient had a score of 31/62. Results indicate good pattern perception and good performance on closed set single word tasks. He had difficulty with closed set sentences and open set material. Demonstrated and practiced with Cochlear Dahlia's Hearing Therapy Manual. Page 17 Round 1: Talker familiarizes listener with both words (e.g., theme, thumb ) and then presents the target word for the listener to guess. Round 2: Talker does not familiarize but presents the target word for the listener to guess. Round 3: Talker makes up a short sentence with the target word in it. The listener repeats the sentence. Discussed expanding their current home practice to sentence-length material. Discussed the auditory sandwich approach - If an item is missed, present it again. If missed again, provide visual cues. Follow-up with auditory-only. Listening practice should be completed with the right hearing aid out and minimal visual cues unless needed for reinforcement. TAKE-HOME ACTIVITIES/Homework: 1. Cochlear Hearing Therapy Manual - see above 2. Adding short sentences to the word list practice they have been doing. IMPRESSIONS Jamison demonstrates good auditory detection and discrimination, as well as good closed set word abilities. He had difficulty with phrase and sentence-length material with the left CI only. He was able to follow along with conversational speech with significant visual cues. Recommend at-home auditory based practice to improve word and phrase/sentence understanding. Clinician recommended completing home-based materials as discussed and returning for follow-up appointment(s) as needed. Gloria Terry M.A., FACUNDO-A Clinical Loss Claim Clerk documented in this encounter [facility] 02-09-2023 Note HNO ID: [id number] Author: Christelle Jimenez AUD Service: ? Author Type: Loss Claim Clerk Type: Progress Notes Filed: 02/09/2023 9:19 AM Note Text: [facility] HEARING AID RECEIVED Name: Jamison Brito [facility]#: [id number] Date of Service: 02/09/2023 Date of : 1945 Age: [age] year old DEVICE INFORMATION RIGHT: Resound Omnia 9-R SN: [id number] HP / mold with canal lock SN: [id number] CAKE STRIPPER: SN: [id number] SUBJECTIVE ASSESSMENT Received the above devices from house wirer at the [place] office. Earmold was incorrectly ordered as stand-alone micromold instead of encased mold. Resound was contacted and instructed to return mold for credit (authorization #: [id number]) and re-order mold as encased mold, using impression on file (ref [id number]). Hearing aid and actuary clerk will be taken to [place] for 02/20 fitting at that location. Danyelle Elam, FACUNDO-A Clinical and Hearing Implant Loss Claim Clerk [facility] 02-02-2023 Note HNO ID: [id number] Author: Christelle Jimenez AUD Service: ? Author Type: Loss Claim Clerk Type: Progress Notes Filed: 02/03/2023 9:39 AM Note Text: [facility] [place] Section of Allied Hearing, Speech and Balance Services COCHLEAR IMPLANT ADULT PROGRAMMING Name: Jamison Brito [facility]#: [id number] Date of Service: February 02, 2023 Date of : 1945 Age: [age] year old COCHLEAR IMPLANT INFORMATION (see below for all device details) RIGHT ear: Oticon Exceed 2 SP BTE coupled to canal lock earmold and was fit at an outside facility and is being managed by that facility. LEFT ear: External Processor: Cochlear Americas BC6423 (N8) External Processor Cochlear Americas N8 Processor SN [id number] Magnet Strength 3i Internal Device Cochlear CI622 Inactive electrodes E1AND2 (non-auditory stim) Surgery Date 12/27/2022 Initial activation date 01/26/2023 Surgeon Marley Cunningham M.D. Accessories: TV streamer, mini luna, extra power extend rechargeable battery Wireless Accessory Set up Fee Paid: No HISTORY: Mr. Brito was seen for one week check of the device/s. The patient reported: * No pain, redness, swelling at magnet site. * Wearing sound processor: All waking hours * Last Otology visit date: 01/10/2023 * Feels he is hearing sounds he has not heard before (seconds ticking on the wall clock in his kitchen, phone ringing with his right hearing aid out, vent fan in the bathroom) * Has been completing some listening practice with his right hearing aid out, with his with closed set words. Will write down 10 words in a particular category (eg. Clemons or body parts) and has read words to him. Feels he has been hearing some of the words * Was having difficulty placing processor/magnet and suggested he place magnet first and then BTE portion of the processor. Feels this has been more successful. * BTE portion of processor has fallen off a couple times while in his reclining chair. Magnet has stayed in place. * Has tried all 4 programs, but 2 most comfortable * had some questions about registering warranty for [employer] dryer and charges billed for last visit. COCHLEAR IMPLANT PROGRAMMING/TROUBLESHOOTING: Dataloggin.1 hours/day LEFT Programming: Headset pressure, magnet strength, and incision site were checked with no problems noted. Electrode impedances, used to monitor internal device function, were measured across the electrode array. Impedances were WNL across all active electrodes. Review of impedances obtained today with comparison to previous visit did not identify any remarkable changes or atypical measurements. Programming consisted of evaluating Threshold (T) levels using the count the beep method and setting Comfort (C) levels at loud, but comfortable using a loudness scale. Several active electrodes were measured and the rest were interpolated. Before going live T/C's taken down 5 cu's. Tilted C's 10 towards the left due to patient perception of clinician's voice being too laird-y . Further decreased C's 2 cus after inserting his hearing aid as he felt implant was too loud The function/use of the programs created were discussed and are listed below: Left Ear Program/Map # Program Feature 1 10 SCAN 2 (ADRO + ASC), SNR-NR,WNR Active controls include: volume. After programming, patient was able to respond to 100% of colors and states without visual cues. Battery Life: Rechargeable: 23 hours Disposable: 39 hours SUMMARY AND RECOMMENDATIONS: Assistive Technologies: The potential benefit of assistive devices such as mini luna and TV streamer was reviewed. Counseling Points: * Will verify billing from previous visit was billed correctly for dry briks. Patient's confirmed she paid $10 for dry briks at last visit * Discussed importance of continuing listening practice, 30-60 mins a day at least 5 days a week. Reviewed auditory therapy manual and partner practice exercises * Reviewed upcoming appointments including AR therapy appointment with Dr. Nava in [place] 02/09. * Continue to monitor magnet/incision site for pain, redness, swelling, scabbing etc. Should any of these occur discontinue use of device immediately and contact the office. * Continue use of left processor and right hearing aid during all waking hours. Follow-up Programming: It was recommended that the patient return in 3 weeks for monitoring of auditory performance and potential programming needs. The center should be contacted if there are problems or concerns before that time. NOTE: It should be noted that the patient left the appointment with all the equipment. None of the patient's equipment was left in the Audiology Section of the Clinic. TOTAL TIME: 95 minutes Programming right 0 minutes Programming left 40 minutes Evaluation of auditory status 0 minutes AMARJIT Mccall Audiology Student Danyelle Elam C (more content not included)... [facility] 01-26-2023 Note HNO ID: [id number] Author: Christelle Jimenez AUD Service: ? Author Type: Loss Claim Clerk Type: Progress Notes Filed: 01/27/2023 1:08 PM Note Text: COCHLEAR IMPLANT INITIAL ACTIVATION Jamison Brito [id number] 1945 January 26, 2023 COCHLEAR IMPLANT INFORMATION (see below for all device details) Updated: January 26, 2023 RIGHT ear: Oticon Exceed 2 SP BTE coupled to canal lock earmold and was fit at an outside facility and is being managed by that facility. LEFT ear: External Processor: Cochlear [employer] [id number] (N8) External Processor Cochle[employer] N8 Processor SN [id number] Magnet Strength 3i Internal Device Cochlear CI622 Inactive electrodes E1AND2 (non-auditory stim) Surgery Date 12/27/2022 Initial activation date 01/26/2023 Surgeon Marley Cunningham M.D. Accessories: TV streamer, mini luna, extra power extend rechargeable battery Wireless Accessory Set up Fee Paid: No HISTORY: This patient was seen for initial activation of the CI speech processor/s today following medical clearance by Trinidad Hope PA-C. See above for specific device information. Patient reports Right ear sounding harsh and high pitch Interested in a getting a new hearing aid for the right ear Excited for activation today Accompanied by his Today?s appointment included the following procedures: UNAIDED AUDIOMETRIC TESTING: Post-operative unaided testing was performed 01/19/2023. Audiogram can be viewed under Procedure tab. LEFT EAR (+ = improvement, - = worsening) 125 Hz 250 Hz 500 Hz 750 Hz 1000 Hz 1500 Hz 2000 Hz 3000 Hz 4000 Hz 6000 Hz 8000 Hz AC DNT -15 dB -30 dB DNT -25 dB DNT -15 dB NR NR NR NR COCHLEAR IMPLANT PROGRAMMING: LEFT Programming: Headset pressure, magnet strength, and incision site were checked with no problems noted. The patient is currently using a 3i magnet. Electrode impedances, used to monitor internal device function, were measured across the electrode array. Impedances were WNL across all active electrodes. Neural responses obtained in the OR were available across the electrode array and utilized in creating the initial maps. Programming consisted of evaluating Threshold (T) levels using the count the beep method and setting Comfort (C) levels at loud, but comfortable using a loudness scale. Several active electrodes were measured and the rest were interpolated. T/C's were decreased 10 cus before going live, and a further 5 cus for patient comfort. He reported sound from processor sounded like beeping and that speech was not clear. Patient initially had concerns sound from processor was intermittent after disconnecting from software and attaching his battery, however, upon further investigating this was because patient was unaware beeping was sound in his environment and counseled he should not hear beeping when room was quiet. The function/use of the programs created were discussed and are listed below: Left Ear Program/Map # Program Feature 1 2 SCAN (ADRO + ASC), SNR-NR,WNR 2 3 SCAN (ADRO + ASC), SNR-NR,WNR Map 2 + 5Cs 3 4 SCAN (ADRO + ASC), SNR-NR,WNR Map 2 + 10Cs 4 5 SCAN (ADRO + ASC), SNR-NR,WNR Map 2 + 15 Cs + 5 Ts Active controls include: none. Estimated battery life: Disposable: 25 hours Rechargeable: 16 hours After programming the patient was able to respond to 100% of colors without visual cues. Device orientation consisting of placement/removal, magnet monitoring, battery use, programs, and remote control use was completed. The patient received an equipment manual. Device registration was completed. It should be noted that the patient left the appointment with all the equipment. None of the patient's equipment was left in the Audiology Section of the Clinic HEARING AID EVALUATION DISCUSSION Based on a discussion about the various amplification options with the patient, including the style of hearing aid, the level of technology, and the use of binaural versus monaural devices, it was agreed that the patient would be fit with rywddv-khw-lit aqaglvzf-cq-kpv-ear (BTE RITE), Level 4 technology in the right ear only. It is also understood that maximum benefit will be achieved from the hearing aid(s) with frequent use and proper fitting and programming. Earmold impression was taken of the right ear without incident. DEVICES TO BE ORDERED Device: Resound Omnia 9 rechargeable Color: Gold Drug Abuse Social Worker: Length 2, HP power Earpiece: Canal lock encased mold FINANCIAL COMPONENT Insurance benefit was verified and found that they do have insurance coverage. $100 discount It is understood that full payment will be required at the fitting appointment. NOTE: Payment at the time of the Hearing Aid Fitting includes the cost of the device, the fitting appointment as well as all follow-up appointments related to the hearing aids for ONE YEAR from the fitting date. All other appointments (more content not included)... [facility] 01-26-2023 History of Presen t illness Narrative Images from the original note were not included. COCHLEAR IMPLANT INITIAL ACTIVATION Jamison Brito [id number] 1945 January 26, 2023 COCHLEAR IMPLANT INFORMATION (see below for all device details) Updated: January 26, 2023 RIGHT ear: Oticon Exceed 2 SP BTE coupled to canal lock earmold and was fit at an outside facility and is being managed by that facility. LEFT ear: External Processor: Cochlear [employer] [id number] (N8) External Processor Cochle[employer] N8 Processor SN [id number] Magnet Strength 3i Internal Device Cochlear CI622 Inactive electrodes E1&2 (non-auditory stim) Surgery Date 12/27/2022 Initial activation date 01/26/2023 Surgeon Marley Cunningham M.D. Accessories: TV streamer, mini luna, extra power extend rechargeable battery Wireless Accessory Set up Fee Paid: No HISTORY: This patient was seen for initial activation of the CI speech processor/s today following medical clearance by Trinidad Hope PA-C. See above for specific device information. Patient reports Right ear sounding harsh and high pitch Interested in a getting a new hearing aid for the right ear Excited for activation today Accompanied by his Today s appointment included the following procedures: UNAIDED AUDIOMETRIC TESTING: Post-operative unaided testing was performed 01/19/2023. Audiogram can be viewed under Procedure tab. LEFT EAR (+ = improvement, - = worsening) 125 Hz 250 Hz 500 Hz 750 Hz 1000 Hz 1500 Hz 2000 Hz 3000 Hz 4000 Hz 6000 Hz 8000 Hz AC DNT -15 dB -30 dB DNT -25 dB DNT -15 dB NR NR NR NR COCHLEAR IMPLANT PROGRAMMING: LEFT Programming: Headset pressure, magnet strength, and incision site were checked with no problems noted. The patient is currently using a 3i magnet. Electrode impedances, used to monitor internal device function, were measured across the electrode array. Impedances were WNL across all active electrodes. Neural responses obtained in the OR were available across the electrode array and utilized in creating the initial maps. Programming consisted of evaluating Threshold (T) levels using the count the beep method and setting Comfort (C) levels at loud, but comfortable using a loudness scale. Several active electrodes were measured and the rest were interpolated. T/C's were decreased 10 cus before going live, and a further 5 cus for patient comfort. He reported sound from processor sounded like beeping and that speech was not clear. Patient initially had concerns sound from processor was intermittent after disconnecting from software and attaching his battery, however, upon further investigating this was because patient was unaware beeping was sound in his environment and counseled he should not hear beeping when room was quiet. The function/use of the programs created were discussed and are listed below: Left Ear Program/Map # Program Feature 1 2 SCAN (ADRO + ASC), SNR-NR,WNR 2 3 SCAN (ADRO + ASC), SNR-NR,WNR Map 2 + 5Cs 3 4 SCAN (ADRO + ASC), SNR-NR,WNR Map 2 + 10Cs 4 5 SCAN (ADRO + ASC), SNR-NR,WNR Map 2 + 15 Cs + 5 Ts Active controls include: none. Estimated battery life: Disposable: 25 hours Rechargeable: 16 hours After programming the patient was able to respond to 100% of colors without visual cues. Device orientation consisting of placement/removal, magnet monitoring, battery use, programs, and remote control use was completed. The patient received an equipment manual. Device registration was completed. It should be noted that the patient left the appointment with all the equipment. None of the patient's equipment was left in the Audiology Section of the Clinic HEARING AID EVALUATION DISCUSSION Based on a discussion about the various amplification options with the patient, including the style of hearing aid, the level of technology, and the use of binaural versus monaural devices, it was agreed that the patient would be fit with hnivcs-zwc-fhj ewmvcyny-wb-eds-ear (BTE RITE), Level 4 technology in the right ear only. It is also understood that maximum benefit will be achieved from the hearing aid(s) with frequent use and proper fitting and programming. Earmold impression was taken of the right ear without incident. DEVICES TO BE ORDERED Device: Resound Omnia 9 rechargeable Color: Gold Drug Abuse Social Worker: Length 2, HP power Earpiece: Canal lock encased mold FINANCIAL COMPONENT Insurance benefit was verified and found that they do have insurance coverage. $100 discount It is understood that full payment will be required at the fitting appointment. NOTE: Payment at the time of the Hearing Aid Fitting includes the cost of the device, the fitting appointment as well as all follow-up appointments related to the hearing aids for ONE YEAR from the fitting date. All other appointments - non hearing aid related such as audiometric testing, ENT appointments, etc are NOT covered under the this payment. All future appointments past the ONE YEAR from fitting date will be a [id number]. If there is an insurance benefit, the cost of the devices along with the fitting fee will be submitted to insurance. If it has been determined that there is a limit to the insurance coverage, patient will be financially responsible at the time of the fitting for the balance over the insurance benefit limit. Patient was quoted $2800 for devices due at time of fitting and expressed understanding. SUMMARY AND RECOMMENDATIONS Strive for full-time device use during all waking hours Work through progressive programs as you are comfortable in preparation for one-week post-activation follow-up appointment. It was recommended that the patient return for follow-up programming in 1 week. The follow-up appointment has been scheduled 02/02/2023. Will need to schedule hearing aid fitting if unable to complete at 1 month post visit scheduled for 02/21. The center should be contacted if there are problems or concerns. Discontinue use and contact the center if use of the processor results in pain or discomfort that cannot be resolved by changing the program or decreasing the settings. TOTAL TIME: 110 minutes Programming right 0 minutes Programming left 40 minutes AMARJIT Mccall Audiology Student Danyelle Elam, CCC/A I verify that I have reviewed the history, test results, and interpretation for this patient. Danyelle Elam, FACUNDO-A Clinical and Hearing Implant Loss Claim Clerk copied to: Marley Cunningham MD documented in this encounter [facility] 01-19-2023 Instructions Christelle Jimenez AUD - 01/19/2023 4:13 PM EDT Images from the original note were not included. [facility] [place] Section of Audiology Thank you for trusting the [facility] Audiology department with your hearing healthcare today. We appreciated the opportunity to meet with you today to assess your hearing status and needs. For you to be able to hear, the brain requires sound to travel through the entire auditory system which involves the outer ear, middle ear, inner ear, and auditory nerve. Symptoms of hearing loss, tinnitus, dizziness, or sensations in the ear may have many different causes. These symptoms may be due to problems associated with your ear, vision, brain, heart, medications, other health conditions, or history of exposure to loud noises. Today you completed a comprehensive evaluation of your auditory system. TEST SUMMARY: Based on today's evaluation, your results revealed sensorineural hearing loss left ear greater than right ear. Today's results suggest a decrease in the left ear. Sensorineural Hearing Loss: Hearing loss means we had to turn the sound up, outside the range of normal, in order for you to be able to hear it. This type of hearing loss affects the inner ear (cochlea) or auditory nerve. Loud noises, diseases or the aging process often cause it. Children are prone to this type due to congenital conditions (present at ), trauma during childbirth, head injuries or infections. Sensorineural hearing loss is often permanent. Hearing aids and hearing assistive devices can help. Listed below are some communication strategies that help you hear others: 1) Facing communication partner. 2) Removing physical or visual barriers. 3) Maintaining a maximum distance for 6-10 feet from communication partner. 4) Encouraging communication partners to use clear speech and get their attention before speaking. 5) Reducing or removing background noise sources. 6) Taking turns speaking in conversation. 7) Ensuring the listener and speaker's voice are level with each other (both seated or both standing). Recommendations: * Continue with CI activation as scheduled 01/26/2023 * Continue medical follow-up with Marley Cunningham MD * Recommend patient return for a hearing aid check for the right side. Offered to complete minor programming adjustments during next weeks CI activation appointment. Thank you for trusting and choosing [facility] Audiology with your hearing care needs. Please do not hesitate to reach out with any questions or concerns. Sincerely, Danyelle Elam, [facility]-A Clinical and Hearing Implant Loss Claim Clerk documented in this encounter [facility] 01-19-2023 Note HNO ID: [id number] Author: Christelle Jimenez AUD Service: ? Author Type: Loss Claim Clerk Type: Progress Notes Filed: 01/19/2023 4:14 PM Note Text: [facility] [place] AUDIOLOGIC EVALUATION REPORT Name: Jamison Brito [facility]#: [id number] Date of Service: 01/19/2023 Date of : 1945 Age: [age] year old Referred by: Self Referred for: Determination of the effect of treatment for disorder of hearing, tinnitus, or balance. Referral documented: No referral on file Patient's major complaints: Post-op re-test. Jamison Brito was seen for a recheck audiologic evaluation. See SmartForm Audiogram for additional reported history and symptoms. Hearing loss: Long standing bilateral hearing loss, worse in the left ear Patient reported that he feels his hearing on his right side has gotten worse since his CI surgery. Feels he has no hearing in the left ear. He reported that his hearing aid on his right side is making an echoing sound as well. Tinnitus: He has noticed a buzzing sound that has happened 2x since the surgery, in both ears, that only lasts a few minutes. Ear pain: denied Aural fullness: denied Otorrhea: denied History of ear infections: denied History of otologic surgeries: Left Cochlear CI622 placed 12/27/2022. Activation scheduled for 01/26/2023. Dizziness: Has felt some balance issues a few times, that happens when he bends over for too long and will get wobbly. Has been going on for about 2-3 weeks, since the surgery. 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 Risk of Falls Documentation for over 65 years old: No history of falls reported so minimal to no risk IMPRESSIONS RIGHT EAR: Sensorineural hearing loss LEFT EAR: Sensorineural hearing loss Comparison of today's results with previous test results (07/27/2022 - scanned docs): Right ear is stable, left ear significant decline as noted below. LEFT EAR (+ = improvement, - = worsening) 125 Hz 250 Hz 500 Hz 750 Hz 1000 Hz 1500 Hz 2000 Hz 3000 Hz 4000 Hz 6000 Hz 8000 Hz AC DNT -15 dB -30 dB DNT -25 dB DNT -15 dB NR NR NR NR AUDIOLOGIC EVALUATION Following is a brief interpretation of the obtained findings from the audiologic evaluation. Refer to the Auditory Test Record for complete audiometric results. The patient was counseled about the test findings and appropriate audiologic recommendations were made. SUMMARY: Audiogram can be viewed under the Proc tab. OTOSCOPY RIGHT EAR: Otoscopic inspection revealed ear canal was clear with an identifiable cone of light. LEFT EAR: Otoscopic inspection revealed ear canal was clear with an identifiable cone of light. TYMPANOMETRY Description of procedure: This test is an objective evaluation of middle ear function. CPT code: 31559 RIGHT EAR: Normal ME pressure with reduced TM compliance (mobility). LEFT EAR: Normal ME pressure with reduced TM compliance (mobility). ACOUSTIC REFLEXES Description of procedure: This test is an objective measure of auditory and facial nerve pathways. CPT code: 36023, 28652 RIGHT EAR PROBE EAR: (ipsi right stimulus ear; contralateral left stimulus ear): Acoustic Reflex Pattern Did not test Acoustic Reflex Decay (left stimulus ear): Did not test. LEFT EAR PROBE EAR: (ipsi left stimulus ear; contralateral right stimulus ear): Acoustic Reflex Pattern Did not test Acoustic Reflex Decay (right stimulus ear):Did not test. PURE TONE AUDIOMETRY AND SPEECH TESTING Description of procedure: This test is an objective evaluation hearing sensitivity via air and bone conduction and speech recognition testing. CPT code: 09512 RIGHT EAR: Hearing Sensitivity: Moderate from 125-250 Hz gradually sloping to profound SNHL, with no response at equipment limits 0842-5799 Hz Word Recognition Score: Poor (60%). WRS is consistent with hearing sensitivity. Words were presented at 90 dB HL which is above (greater than or equal to 60 dB HL) intensity level for average conversational speech. The NU-6 Word List (25 words) was used. LEFT EAR: Hearing Sensitivity: Moderately-severe from 125-250 Hz gradually sloping to profound SNHL with no response at equipment limits 5011-9535 Hz Word Recognition Score: Very Poor (0%). WRS is poorer than expected given hearing sensitivity. Words were presented at 100 dB HL which is above (greater than or equal to 60 dB HL) intensity level for average conversational speech. The NU-6 Word List (25 words) was used. RECOMMENDATIONS * Continue with CI activation as scheduled 01/26/2023 * Continue medical follow-up with Marley Clancy (more content not included)... [facility] 01-19-2023 History of Presen t illness Narrative [facility] [place] AUDIOLOGIC EVALUATION REPORT Name: Jamison Brito [facility]#: [id number] Date of Service: 01/19/2023 Date of : 1945 Age: [age] year old Referred by: Self Referred for: Determination of the effect of treatment for disorder of hearing, tinnitus, or balance. Referral documented: No referral on file Patient's major complaints: Post-op re-test. Jamison Brito was seen for a recheck audiologic evaluation. See SmartForm Audiogram for additional reported history and symptoms. Hearing loss: Long standing bilateral hearing loss, worse in the left ear Patient reported that he feels his hearing on his right side has gotten worse since his CI surgery. Feels he has no hearing in the left ear. He reported that his hearing aid on his right side is making an echoing sound as well. Tinnitus: He has noticed a buzzing sound that has happened 2x since the surgery, in both ears, that only lasts a few minutes. Ear pain: denied Aural fullness: denied Otorrhea: denied History of ear infections: denied History of otologic surgeries: Left Cochlear CI622 placed 12/27/2022. Activation scheduled for 01/26/2023. Dizziness: Has felt some balance issues a few times, that happens when he bends over for too long and will get wobbly. Has been going on for about 2-3 weeks, since the surgery. Noise exposure: Worked in a [employer] without hearing protection History of chemotherapy or radiation: denied History of head trauma: denied Family history of hearing loss: Father Hearing aids: Right Oticon Exceed BTE, interested in pursuing a new hearing aid for the right ear that would be compatible with his CI Other concerns: Would like to get his right hearing aid checked due to the echo sounds. Risk of Falls Documentation for over 65 years old: No history of falls reported so minimal to no risk IMPRESSIONS RIGHT EAR: Sensorineural hearing loss LEFT EAR: Sensorineural hearing loss Comparison of today's results with previous test results (07/27/2022 - scanned docs): Right ear is stable, left ear significant decline as noted below. LEFT EAR (+ = improvement, - = worsening) 125 Hz 250 Hz 500 Hz 750 Hz 1000 Hz 1500 Hz 2000 Hz 3000 Hz 4000 Hz 6000 Hz 8000 Hz AC DNT -15 dB -30 dB DNT -25 dB DNT -15 dB NR NR NR NR AUDIOLOGIC EVALUATION Following is a brief interpretation of the obtained findings from the audiologic evaluation. Refer to the Auditory Test Record for complete audiometric results. The patient was counseled about the test findings and appropriate audiologic recommendations were made. SUMMARY: Audiogram can be viewed under the Proc tab. OTOSCOPY RIGHT EAR: Otoscopic inspection revealed ear canal was clear with an identifiable cone of light. LEFT EAR: Otoscopic inspection revealed ear canal was clear with an identifiable cone of light. TYMPANOMETRY Description of procedure: This test is an objective evaluation of middle ear function. CPT code: 91727 RIGHT EAR: Normal ME pressure with reduced TM compliance (mobility). LEFT EAR: Normal ME pressure with reduced TM compliance (mobility). ACOUSTIC REFLEXES Description of procedure: This test is an objective measure of auditory and facial nerve pathways. CPT code: 92442, 95760 RIGHT EAR PROBE EAR: (ipsi right stimulus ear; contralateral left stimulus ear): Acoustic Reflex Pattern Did not test Acoustic Reflex Decay (left stimulus ear): Did not test. LEFT EAR PROBE EAR: (ipsi left stimulus ear; contralateral right stimulus ear): Acoustic Reflex Pattern Did not test Acoustic Reflex Decay (right stimulus ear):Did not test. PURE TONE AUDIOMETRY AND SPEECH TESTING Description of procedure: This test is an objective evaluation hearing sensitivity via air and bone conduction and speech recognition testing. CPT code: 93506 RIGHT EAR: Hearing Sensitivity: Moderate from 125-250 Hz gradually sloping to profound SNHL, with no response at equipment limits 5739-7659 Hz Word Recognition Score: Poor (60%). WRS is consistent with hearing sensitivity. Words were presented at 90 dB HL which is above (greater than or equal to 60 dB HL) intensity level for average conversational speech. The NU-6 Word List (25 words) was used. LEFT EAR: Hearing Sensitivity: Moderately-severe from 125-250 Hz gradually sloping to profound SNHL with no response at equipment limits 6438-5193 Hz Word Recognition Score: Very Poor (0%). WRS is poorer than expected given hearing sensitivity. Words were presented at 100 dB HL which is above (greater than or equal to 60 dB HL) intensity level for average conversational speech. The NU-6 Word List (25 words) was used. RECOMMENDATIONS * Continue with CI activation as scheduled 01/26/2023 * Continue medical follow-up with Marley Cunningham MD * Recommend patient return for a hearing aid check for the right side. Offered to complete minor programming adjustments during next weeks CI activation appointment. AMARJIT Mccall Audiology Student Danyelle Elam, [facility] Clinical and Hearing Implant Loss Claim Clerk copied to: Marley Cunningham MD RUVALCABA Abbrev- iation Definition Degree of hearing sensitivity dB range WNL within normal limits WNL 0 - 20 SNHL sensorineural hearing loss Mild 20-40 CHL conductive hearing loss Moderate 40-55 MHL mixed hearing loss Moderately-Severe 55-70 WRS word recognition score Severe 70-90 ME middle ear Profound 90 + TM tympanic membrane documented in this encounter [facility] 01-10-2023 Note HNO ID: [id number] Author: Trinidad Hope PA-C Service: ? Author Type: Physician Sales Research Analyst Type: Progress Notes Filed: 01/10/2023 11:20 AM Note Text: Mr. JAMISON BRITO is a 77 year old year old male now postoperative day 14 for Left cochlear implantation. (Dr. Marley Cunningham 12/27/22) Today denies pain, dizziness, facial numbness or weakness, taste changes. Does not note any changes in the Left ear. Prevnar-13: 2015 Pneumovax: 2004 Objective: Physical Exam: : EAC clear. TM intact without perforation or retraction. Hemotympanum apparent. Post-auricular incision and magnet site well healed without any erythema or inflammation. Assessment: Z48.89, Z96.21 Cochlear implant follow-up (primary encounter diagnosis) H90.3 Sensorineural hearing loss (SNHL) of both ears Plan: 1. Medically clear for cochlear implant device activation 2. Follow-up in 2-3 years to stay medically established Trinidad Hope PA-C Otology Immunization History Administered Date(s) Administered COVID-19 original vaccine, age 12+ yr, monovalent (PFIZER-BIONTECH - MENDEZ TOP) 08/15/2021 COVID-19 original vaccine, age 12+ yr, monovalent (PFIZER-BIONTECH - PURPLE TOP) 07/16/2020 08/06/2020 02/14/2021 COVID-19 vaccine, age 12+ yr, bivalent (PFIZER-BIONTECH) 02/13/2022 influenza (aIIV3) vaccine, age 65+ yr, trivalent, PF (FLUAD) 02/07/2020 01/31/2021 02/13/2022 pneumococcal (PCV13) vaccine, 13 valent (PREVNAR 13) 09/17/2014 09/27/2014 pneumococcal (PPV23) vaccine, 23 valent (PNEUMOVAX 23) 05/15/1998 04/13/2003 05/15/2003 08/15/2021 zoster (RZV) vaccine, recombinant (SHINGRIX) 08/15/2021 02/13/2022 zoster (ZVL) vaccine, live (ZOSTAVAX) 04/13/2013 05/15/2013 [facility] 01-10-2023 History of Presen t illness Narrative Mr. JAMISON BRITO is a 77 year old year old male now postoperative day 14 for Left cochlear implantation. (Dr. Marley Cunningham 12/27/22) Today denies pain, dizziness, facial numbness or weakness, taste changes. Does not note any changes in the Left ear. Prevnar-13: 2015 Pneumovax: 2004 Objective: Physical Exam: : EAC clear. TM intact without perforation or retraction. Hemotympanum apparent. Post-auricular incision and magnet site well healed without any erythema or inflammation. Assessment: Z48.89, Z96.21 Cochlear implant follow-up (primary encounter diagnosis) H90.3 Sensorineural hearing loss (SNHL) of both ears Plan: 1. Medically clear for cochlear implant device activation 2. Follow-up in 2-3 years to stay medically established Trinidad Hope PA-C Otology Immunization History Administered Date(s) Administered COVID-19 original vaccine, age 12+ yr, monovalent (PFIZER-BIONTECH - MENDEZ TOP) 08/15/2021 COVID-19 original vaccine, age 12+ yr, monovalent (PFIZER-BIONTECH - PURPLE TOP) 07/16/2020 08/06/2020 02/14/2021 COVID-19 vaccine, age 12+ yr, bivalent (PFIZER-BIONTECH) 02/13/2022 influenza (aIIV3) vaccine, age 65+ yr, trivalent, PF (FLUAD) 02/07/2020 01/31/2021 02/13/2022 pneumococcal (PCV13) vaccine, 13 valent (PREVNAR 13) 09/17/2014 09/27/2014 pneumococcal (PPV23) vaccine, 23 valent (PNEUMOVAX 23) 05/15/1998 04/13/2003 05/15/2003 08/15/2021 zoster (RZV) vaccine, recombinant (SHINGRIX) 08/15/2021 02/13/2022 zoster (ZVL) vaccine, live (ZOSTAVAX) 04/13/2013 05/15/2013 documented in this encounter [facility] 12-30-2022 Miscellaneous Notes This is Estefania Peoples RN from the [facility] with a follow up call after your discharge from your recent surgery. Do you have a few minutes that I could ask you a few questions? Yes How is your pain? 0. Had pain the first night and the next day and none since then. Is your pain controlled with the pain medication prescribed? Yes. He took oxycontin the night of surgery and then following AM. Later on in post op day one he took 2 tylenol. Has not needed any pain medicine since. What are you currently taking and how often are you taking it? He is not longer in need of pain medication Are there any problems with your incision or do you have dressing concerns? Area looks fine - no redness or drainage noted. Glue still seems to be somewhat intact. Are you tolerating food and fluid intake? Yes Have you had any problems with nausea, vomiting, dizziness? No Have you had fevers/? No How is your activity level? Patient is taking it easy, as instructed. Do you have any other questions or concerns?Yes.He is still off-balance and a little wobbly on his feet. Do you have your post op appt? Yes. Patient is scheduled for follow-up with TWIN Cui on 01/10. Patient will ask at that time what the appropriate time frame is for him to follow-up with Dr Cunningham. Estefania Peoples, JOSE documented in this encounter [facility] 12-28-2022 Miscellaneous Notes Called and left message as directed on Jennifer's voicemail with Dr. Cunningham's message. Directed them to call with any further questions. Images from the original note were not included. Marley Cunningham MD You; Preeti Witt PA-C 24 minutes ago (3:01 PM) I would just cut around the free edges of the gauze for now and whatever is more adherent close to the skin to leave that on, which will slowly peel off once patient starts to shower and wet his hair Thank you Marley Called and spoke with Jennifer, pt's . When they removed plastic cover, they noticed gauze stuck behind his ear. Does not see any blood/drainage. Has not pulled on it. Directed them to leave it for now and we will provide further direction. Can leave a voicemail and leave a message on [phone]. Person Calling:Jennifer(Spouse) Reason for Call:states patient has a piece of gauze stuck to head after she removed plastic cover around his head, should she try to remove? Pt Phone #: [phone] Pharmacy Name and # : Pt last seen: 12/27/2022 Maria Esther SERNA documented in this encounter [facility] 12-27-2022 Note HNO ID: [id number] Author: Thomas Richards AUD Service: ? Author Type: Loss Claim Clerk Type: Procedures Filed: 12/27/2022 1:17 PM Note Text: Head and Neck [place] [facility] INTRAOPERATIVE EVOKED COMPOUND ACTION POTENTIAL TESTING Name: Jamison Brito [facility]#: [id number] Date of : 1945 Age: [age] year old Procedure Date: 12/27/2022 Loss Claim Clerk: Danyelle Doyle, [facility] Referred by: Marley Cunningham MD Operating Room: [facility] Anesthesiologist: Telma Perez MD Planned Procedure: Neural Response Telemetry (NRT) to evaluate the responsiveness of the auditory nerve to electrical stimulation post electrode insertion. Anesthesia: General Pre-procedure Diagnosis: Asymmetrical sensorineural hearing loss (H90.3) Post-procedure Diagnosis: Asymmetrical sensorineural hearing loss (H90.3), Cochlear implant in place (Z96.21) Start Time: 12:42 PM End Time: 12:52 PM Total test time: 10 minutes CI HISTORY Current Device LEFT SIDE Internal Device [id number] with slim straight electrode array Internal Device SN [id number] External Processor Nucleus [id number] Surgery Date 12/27/2022 Surgeon Marley Cunningham M.D. Following full insertion to the first line of the electrode array through the round window, intraoperative testing of the internal device was conducted remotely using a secure network connection. A [facility]-owned [id number] processor was connected to the internal device using a cable/coil in the standard fashion. Electrode impedances, used to monitor internal device function, were measured across the electrode array at the beginning and end of the procedure and were within normal limits for all electrodes. 1. Sweep All electrodes were swept and conditioned at 220 clinical units with a pulse width of 25 and responses were present on electrodes 4-22. Another sweep at 220 clinical units with a pulse width of 37 was administered on electrodes 1-3 only and responses were obtained on electrodes 2 and 3. Attempted to condition electrode 1 at 225 and 230 clinical units with a pulse width of 37 but was unable to obtain a response. 2. Amplitude Growth Function was evaluated on the electrodes indicated below; amplitude growth was within normal limits on these electrodes suggesting acceptable neural synchrony and responsiveness of the auditory nerve to changes in stimulus intensity. Electrode 1: could not obtain responses with a pulse width: 37 Electrode 4: slope: 3.163894; extrapolated tNRT = 205; pulse width: 25 Electrode 7: slope: 3.3811; extrapolated tNRT = 189; pulse width: 25 Electrode 10: slope: 7.1721; extrapolated tNRT = 198; pulse width: 25 Electrode 13: slope: 11.05243; extrapolated tNRT = 192; pulse width: 25 Electrode 16: slope: 11.20471; extrapolated tNRT = 175; pulse width: 25 Electrode 19: slope: 10.52068; extrapolated tNRT = 160; pulse width: 25 Electrode 22: slope: 11.06521; extrapolated tNRT = 160; pulse width: 25 3. Spread of Excitation (MARC) was evaluated on the following electrodes; results as follows: Electrode 10: (220 CUs) Total MARC width at 50% = 6.72; pulse width: 25 Electrode 16: (220 CUs) Total MARC width at 50% = could not calculate but not consistent with fold over; pulse width: 25 Due to normal ECAP responses suggesting appropriate electrode function, neural responsiveness, and electrode array placement, intra-operative imaging was not conducted. Summary and Recommendations Jamison Brito will be scheduled for device activation in approximately 2 to 4 weeks, pending medical clearance by Marley Cunningham M.D.. Based on results of today's testing, the following recommendations are made regarding device activation: typical activation - consider wider PW at basal electrodes. Danyelle Doyle CCC/A I attest that I was present for the entire procedure and performed all critical aspects. Danyelle Doyle CCC/A [facility] 12-27-2022 Note HNO ID: [id number] Author: Donis Anna AA Service: ? 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 Staffing CAA: Donis Anna AA Performed by: MAI Indications and Patient Condition Indications for airway management: anesthesia Preoxygenated: yes anesthesia circuit Patient position: sniffing Method: asleep Difficult Mask: No Final Airway Details Final airway type: endotracheal airway Final Endotracheal Airway: ETT Cuffed: yes Successful intubation technique: direct laryngoscopy Endotracheal tube insertion site: oral Blade: Evelyn Blade size: #4 ETT size (mm): 7.5 Measured from: gums Measurement (cm): 22 Cormack-Lehane Classification: grade IIb - view of arytenoids or posterior of glottis only Number of attempts at approach: 1 Failed airway: no Unrecognized esophageal intubation: no Airway not difficult SIGNATURE: NIKKI Corbett PATIENT NAME: Jamison Brito DATE: December 27, 2022 TIME: 11:07 AM CSN: [id number] [facility] 12-14-2022 Note HNO ID: [id number] Author: Nikky Madrid LPN Service: ? Author Type: LICENSED NURSE Type: Progress Notes Filed: 12/14/2022 11:16 AM Note Text: pre [facility] 11-22-2022 Note HNO ID: [id number] Author: DANYELLE Elam Service: ? Author Type: Loss Claim Clerk Type: Progress Notes Filed: 11/22/2022 12:23 PM Note Text: Head and Neck [place] [facility] COCHLEAR IMPLANT CANDIDACY EVALUATION Device Selection Name: Jamison Brito [facility]#: [id number] Date of Service: November 21, 2022 Date of : 1945 Age: [age] year old Referred by: Marley Cunningham MD HISTORY This patient is being seen today for device selection having received HIP team approval for left cochlear implantation on 10/17/2022. The HIP Team recommended Cochlear CI632/622 for the internal device. Surgery is scheduled for 12/27/2022 at the [facility]. 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 has an Android cell phone, but neither of them are very tech savvy Has a caption phone at home Information about the specific cochlear implants available was presented to the patient including the following information: How cochlear implants work The devices available at [facility], including potential benefits and limitations of each device based on the patient?s specific circumstances Surgery and follow-up procedures Expectations for a cochlear implant recipient Need for on-going special services even after implantation The advantages and limitations of cochlear implantation Recommendations regarding bimodal listening and new hearing aid technology, if appropriate Potential for hearing preservation and use of an acoustic component, if warranted Use of wireless accessories and hearing aid compatibility Reasons for HIP team selection of internal array configuration Based on the discussion among the cnc cutting operator and Mr. Brito (and family members), the following device was selected: Cochlear Resonant Vibess [id number] (N8) in mendez (color). Selected accessories include: TV streamer, mini luna and extra power extend rechargeable battery. We do not expect that amplification of residual hearing may be possible post-op, therefore an acoustic component was not ordered. Mr. Brito was made aware that the implant kit may include wireless accessories and/or Made for iPhone or Android compatibility that requires pairing/setup. This setup is not included in the programming of the cochlear implant system and patient is aware of responsibility for managing the setup of these devices, including that the setup fee is not covered by insurance. Mr. Brito selected to setup on his own at this time. Wireless Accessory Setup Options: Complete set up at home on their own and Attend house wirer office hours, by appointment An appointment with Yue Springer, Cochlear sales representative public utilities was encouraged and the link to schedule ([email or web address]) was provided. The patient was registered through [employer]. ('s email address) SUMMARY AND RECOMMENDATIONS Mr. Brito completed and signed a Device Selection Form. The device order was saved to the HIP team folder and submitted to Sue Richardson, Hearing Implant Dock Boss and will be ordered prior to surgery. TOTAL TIME: 85 Rico Christensen Audiology Internal Sales I verify that I have reviewed the history and process of device selection for this patient. Danyelle Elam, [facility] Clinical and Hearing Implant Loss Claim Clerk copied to: Sue Richardson, HIP Coordinator [facility] 11-22-2022 History of Presen t illness Narrative Head [facility] Neck [place] [facility], [facility] Balance [facility] COCHLEAR IMPLANT CANDIDACY EVALUATION Device Selection Name: Jamison Brito [facility]#: [id number] Date of Service: November 21, 2022 Date of : 1945 Age: [age] year old Referred by: Marley Cunningham MD HISTORY This patient is being seen today for device selection having received HIP team approval for left cochlear implantation on 10/17/2022. The HIP Team recommended Cochlear CI632/622 for the internal device. Surgery is scheduled for 12/27/2022 at the [facility]. 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 has an Android cell phone, but neither of them are very tech savvy Has a caption phone at home Information about the specific cochlear implants available was presented to the patient including the following information: How cochlear implants work The devices available at [facility], including potential benefits and limitations of each device based on the patient s specific circumstances Surgery and follow-up procedures Expectations for a cochlear implant recipient Need for on-going special services even after implantation The advantages and limitations of cochlear implantation Recommendations regarding bimodal listening and new hearing aid technology, if appropriate Potential for hearing preservation and use of an acoustic component, if warranted Use of wireless accessories and hearing aid compatibility Reasons for HIP team selection of internal array configuration Based on the discussion among the cnc cutting operator and Mr. Brito (and family members), the following device was selected: Co[employer]ar [employer] [id number] (N8) in mendez (color). Selected accessories include: TV streamer, mini luna and extra power extend rechargeable battery. We do not expect that amplification of residual hearing may be possible post-op, therefore an acoustic component was not ordered. Mr. Brito was made aware that the implant kit may include wireless accessories and/or Made for iPhone or Android compatibility that requires pairing/setup. This setup is not included in the programming of the cochlear implant system and patient is aware of responsibility for managing the setup of these devices, including that the setup fee is not covered by insurance. Mr. Brito selected to setup on his own at this time. Wireless Accessory Setup Options: Complete set up at home on their own and Attend house wirer office hours, by appointment An appointment with Yue Springer Cochlear sales representative public [employer] was encouraged and the link to schedule ([email or web address]) was provided. The patient was registered through [employer]. ('s email address) SUMMARY AND RECOMMENDATIONS Mr. Brito completed and signed a Device Selection Form. The device order was saved to the HIP team folder and submitted to Sue Richardsno Hearing Implant Dock Boss and will be ordered prior to surgery. TOTAL TIME: 85 Jet Christensen. Audiology Internal Sales I verify that I have reviewed the history and process of device selection for this patient. Danyelle Elam, [facility] Clinical and Hearing Implant Loss Claim Clerk copied to: Sue Richardson, HIP Coordinator documented in this encounter [facility] 11-21-2022 Miscellaneous Notes Called to set up a device selection for upcoming surgery on 12/27. Options are: 12/01 at 7:30 at - can be done virtually 11/22 at 10:30 am at [facility] accepted the appointment for tomorrow. We went over all currently scheduled appointments. No further questions Sue Richardson Hearing Implant Dock Boss documented in this encounter [facility] 10-21-2022 Note HNO ID: [id number] Author: Min Baltazar RN Service: ? Author Type: Registered Nurse Type: Progress Notes Filed: 10/21/2022 8:26 AM Note Text: Summary: Updated Vaccines Pt had his immunization record faxed over. His immunizations have been updated. The pt has received both the Pneumo 23 and the Prevnar 13. [facility] 10-19-2022 Note HNO ID: [id number] Author: Min Baltazar RN Service: ? Author Type: Registered Nurse Type: Progress Notes Filed: 10/21/2022 8:27 AM Note Text: Spoke to pt's spouse Jennifer, who said that Jamison has received the Pneumo 23 and Prevnar 13 already. She will have the pharmacy fax the vaccine record to this office. Once received the pt's immunization record will be updated. [facility] 10-19-2022 Note HNO ID: [id number] Author: Min Baltazar RN Service: ? Author Type: Registered Nurse Type: Progress Notes Filed: 10/19/2022 1:50 PM Note Text: LVM for pt to call back to discuss getting his Prevnar 20 since he was approved for a CI from the HIP Team pending the vaccine. [facility] 10-19-2022 History of Presen t illness Narrative Spoke to pt's spouse Jennifer, who said that Jamison has received the Pnuemo 23 and Prevnar 13 already. She will have the pharmacy fax the vaccine record to this office. Once received the pt's immunization record will be updated. LVM for pt to call back to discuss getting his Prevnar 20 since he was approved for a CI from the HIP Team pending the vaccine. Summary: HIP T eam Meeting 10/18/2022 No diagnosis found. Patient was approved for left cochlear implant at Hearing Implant Program team meeting on October 18, 2022. Recommended internal device: 632/622. Audiogram date 07/27/2022 - [facility] Cochlear implant evaluation date 09/14/2022 - Dr Richards Qualifying Score in ear to be implanted: Glideymsa-Xxfgonr-Bptfjlcqm Words (CNC) Test Condition List # Phonemes Words Right Ear (Patient [facility]) 2 0% 0% Left Ear (Patient [facility]) 4 0% 0% Right Ear (Clinic [facility]) 3 69% 40% Left Ear (Clinic SOLORIO) 5 32% 16% Bilateral 6 85% 72% AZ BIO (quiet) Test Condition List # Score Right Ear 1 58% Left Ear 3 10% Bilateral 6 56% AZ BIO (quiet, -10 dB HL) Test Condition List # Score Bilateral 4 54% Imaging MRI Yes CT Yes Imaging Report: MRI IMPRESSION: Normal high-resolution cranial nerve imaging. No clear cause for hearing loss is identified on this examination. Microvascular ischemic change and mild volume loss. CT IMPRESSION: Normal appearance of the temporal bones. Bilateral paranasal sinus mucosal thickening and bubbly secretions, which could indicate acute sinusitis in the appropriate clinical context. Cranial Nerves VII and VIII are intact. EAS CANDIDATE? No. HEARING PRESERVATION CANDIDATE? Yes. Preoperative audiogram <6 months, post-operative audiogram, and okay for 2 week activation PRE-OP VESTIBULAR TESTING: No VACCINATION NEEDS: Yes. PREVNAR 20 Immunization History Administered Date(s) Administered COVID-19 original vaccine, age 12+ yr, monovalent ([employer]on[employer] - MENDEZ TOP) 08/15/2021 COVID-19 original vaccine, age 12+ yr, monovalent ([employer] - PURPLE TOP) 07/16/2020 08/06/2020 02/14/2021 COVID-19 vaccine, age 12+ yr, bivalent ([employer]ION[employer] Life) 02/13/2022 Codes for pre-determination: 65025 Cochlear implant device implantation, with or without mastoidectomy L8614 Cochlear device, includes all internal and external components No diagnosis found. Min Baltazar RN *Hearing preservation candidates have low-frequency (125, 250, 500 Hz) air thresholds of less than 80 dB twan documented in this encounter [facility] 10-18-2022 Note HNO ID: [id number] Author: Min Baltazar RN Service: ? Author Type: Registered Nurse Type: Progress Notes Filed: 10/25/2022 2:22 PM Note Text: Summary: JERSON [facility]ing ea Meeting 10/18/2022 (Z23) Need for pneumococcal vaccine (primary encounter diagnosis) (H90.3) Sensorineural hearing loss (SNHL) of both ears Patient was approved for left cochlear implant at Hearing Implant Program team meeting on October 18, 2022. Recommended internal device: 632/622. Audiogram date 07/27/2022 - [facility] Cochlear implant evaluation date 09/14/2022 - Dr Richards Qualifying Score in ear to be implanted: Arcwjkjkh-Jrszits-Epzebdvpw Words (CNC) Test Condition List # Phonemes Words Right Ear (Patient [facility]) 2 0% 0% Left Ear (Patient [facility]) 4 0% 0% Right Ear (Clinic [facility]) 3 69% 40% Left Ear (Clinic [facility]) 5 32% 16% Bilateral 6 85% 72% AZ BIO (quiet) Test Condition List # Score Right Ear 1 58% Left Ear 3 10% Bilateral 6 56% AZ BIO (quiet, -10 dB HL) Test Condition List # Score Bilateral 4 54% Imaging MRI Yes CT Yes Imaging Report: MRI IMPRESSION: Normal high-resolution cranial nerve imaging. No clear cause for hearing loss is identified on this examination. Microvascular ischemic change and mild volume loss. CT IMPRESSION: Normal appearance of the temporal bones. Bilateral paranasal sinus mucosal thickening and bubbly secretions, which could indicate acute sinusitis in the appropriate clinical context. Cranial Nerves VII and VIII are intact. EAS CANDIDATE? No. HEARING PRESERVATION CANDIDATE? Yes. Preoperative audiogram <6 months, post-operative audiogram, and okay for 2 week activation PRE-OP VESTIBULAR TESTING: No VACCINATION NEEDS: NO - Updated 10/21/2022 Immunization History Administered Date(s) Administered COVID-19 original vaccine, age 12+ yr, monovalent ([employer] Life - MENDEZ TOP) 08/15/2021 COVID-19 original vaccine, age 12+ yr, monovalent ([employer] Life - PURPLE TOP) 07/16/2020 08/06/2020 02/14/2021 COVID-19 vaccine, age 12+ yr, bivalent ([employer]) 02/13/2022 influenza (aIIV3) vaccine, age 65+ yr, trivalent, PF (FLUAD) 02/07/2020 01/31/2021 02/13/2022 pneumococcal (PCV13) vaccine, 13 valent (PREVNAR 13) 09/17/2014 09/27/2014 pneumococcal (PPV23) vaccine, 23 valent (PNEUMOVAX 23) 05/15/1998 04/13/2003 05/15/2003 08/15/2021 zoster (RZV) vaccine, recombinant (SHINGRIX) 08/15/2021 02/13/2022 zoster (ZVL) vaccine, live (ZOSTAVAX) 04/13/2013 05/15/2013 Codes for pre-determination: 80703 Cochlear implant device implantation, with or without mastoidectomy L8614 Cochlear device, includes all internal and external components (Z23) Need for pneumococcal vaccine (primary encounter diagnosis) (H90.3) Sensorineural hearing loss (SNHL) of both ears Min Baltazar RN *Hearing preservation candidates have low-frequency (125, 250, 500 Hz) air thresholds of less than 80 dB appointment Marley Cunningham MD [facility] 09-30-2022 Note HNO ID: [id number] Author: RT Tierra(Kiki) Service: ? Author Type: Technologist Type: Progress Notes Filed: 09/30/2022 9:28 AM Note Text: Radiology Service Progress Note DATE OF SERVICE: September 30, 2022 TIME: 9:26 AM PATIENT IDENTITY VERIFICATION COMPLETED USING TWO (2) STANDARD IDENTIFIERS: Name and Date of confirmed by patient verbally. FALL SCREENING: Has the patient had 2 falls in the last year or 1 fall with injury or currently using an Ambulatory Assistive Device (Walker, Cane, Wheelchair, Crutches, etc.)? No PATIENT GENDER DATA: Male PATIENT RELEVANT IMPLANT DATA REVIEWED: Yes ALLERGIES: Reviewed and unchanged CONTRAST ALLERGY: NO. EXAM: MRI - CONTRAST TYPE: GROUP II PERIPHERAL IV DATA: Ambulatory: A peripheral IV was started in the Right antecubital site with a Angio cath: 22 gauge. RADIOLOGY DEPARTMENT: MR; Exam(s) Completed: Head: IAC/CPA SIGNATURE: RT Tierra(R) PATIENT NAME: Jamison Brito DATE: September 30, 2022 TIME: 9:26 AM [facility] 09-30-2022 History of Presen t illness Narrative Radiology Service Progress Note DATE OF SERVICE: September 30, 2022 TIME: 9:26 AM PATIENT IDENTITY VERIFICATION COMPLETED USING TWO (2) STANDARD IDENTIFIERS: Name and Date of confirmed by patient verbally. FALL SCREENING: Has the patient had 2 falls in the last year or 1 fall with injury or currently using an Ambulatory Assistive Device (Walker, Cane, Wheelchair, Crutches, etc.)? No PATIENT GENDER DATA: Male PATIENT RELEVANT IMPLANT DATA REVIEWED: Yes ALLERGIES: Reviewed and unchanged CONTRAST ALLERGY: NO. EXAM: MRI - CONTRAST TYPE: GROUP II PERIPHERAL IV DATA: Ambulatory: A peripheral IV was started in the Right antecubital site with a Angio cath: 22 gauge. RADIOLOGY DEPARTMENT: MR; Exam(s) Completed: Head: IAC/CPA SIGNATURE: RT Tierra(Kiki) PATIENT NAME: Jamison Brito DATE: September 30, 2022 TIME: 9:26 AM documented in this encounter [facility] 09-14-2022 Note HNO ID: [id number] Author: DANYELLE Doyle Service: ? Author Type: Loss Claim Clerk Type: Progress Notes Filed: 09/14/2022 9:04 PM Note Text: [facility] [place] [facility] ADULT COCHLEAR IMPLANT CANDIDACY EVALUATION Audiometric Testing Name: Jamison Brito [facility]#: [id number] Date of Service: September 14, 2022 Date of : 1945 Age: [age] year old Referred by: Marley Cunningham MD This patient was referred for an evaluation to determine cochlear implant candidacy. Relevant case history includes the following: HISTORY: Audiologic Hearing loss: History of asymmetrical SNHL (LE>RE) which has worsened over time, especially in the left ear. Hearing loss is attributed to significant amount of noise exposure. First diagnosed with hearing loss in . 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 In larger rooms he has significant difficulties. Can become embarrassing when asking for repetition frequently and misses out on pieces of conversations. 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 Phone: Has difficulties, some voices are easier than others Television: Difficulties Other Family Support: adequate support Would prefer follow-up CI appointments in [place] as it is closer to their home QUESTIONNAIRE RESULTS The patient completed the following questionnaires based on their current experience and scored as follows: Hearing Handicap Inventory 09/07/2022 HHIE Total Score 72 Dizziness Handicap Inventory 09/07/2022 Dizziness or imbalance No Tinnitus Handicap Inventory 09/07/2022 Tinnitus No Speech Spatial Qualities Questionaire 09/07/2022 Total Score 2.61 Speech Hearing Subscore 0.86 Spatial Hearing Subscore 4.29 Qualities of Hearing Subscore 2.33 PROMIS Global Health Scale 08/29/2022 Physical Health Percentile 53 AUDIOMETRIC TESTING Audiometric testing was completed at an outside clinic ([facility]) on 07/27/2022 with the following results: HEARING AID TEST RESULTS Phonak Dodie P90-UP clinic hearing aids were programmed to the patient?s most recent audiogram. Devices were verified utilizing the [employer] X[employer]Rayit equipment to NAL-NL 1 fitting methods. AIDED SII Meeting Target NAL-NL1 Gain RIGHT Ear CLINIC Device 36 Yes LEFT Ear CLINIC Device 37 Yes A CNC word list was administered in the right aided and left aided condition with the patient's hearing aids and the Clinic's hearing aids. Results indicated better performance with Clinic hearing aids and and the patient subjectively reported better sound quality with Clinic devices. Based on CNC word lists results, testing proceeded using Clinic hearing devices. AIDED SPEECH TESTING The contralateral ear was Plugged during testing. 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); results were: Dehtxjrsg-Rabxowz-Bfzrrswys Words (CNC) Test Condition List # Phonemes Words Right Ear (Patient [facility]) 2 0% 0% Left Ear (Patient [facility]) 4 0% 0% Right Ear (Clinic [facility]) 3 69% 40% Left Ear (Clinic [facility]) 5 32% 16% Bilateral 6 85% 72% AZ BIO (quiet) Test Condition List # Score Right Ear 1 58% Left Ear 3 10% Bilateral 6 56% AZ BIO (quiet, -10 dB HL) Test Condition List # Score Bilateral 4 54% AZ BIO (+5 SNR) Test Condition List # Score Right Ear 2 0% Left Ear DNT DNT Bilateral 7 15% Discontinued after 10 sentences INTERPRETATION OF RESULTS Speech perception testing suggests very poor performance in the left hearing aid only conditions and all speech in noise conditions. SUMMARY AND RECOMMENDATIONS Based on the audiometric testing, Candidate in the left ear Based on audiometric testing, this patient meets FDA criteria for traditional for cochlear implantation in the LEFT ear Potential Candidate (R/L/BILATERAL) LEFT Hearing Preservation Yes (*Hearing preservation candidates have low-frequency (125, 250, 500 Hz) air thresholds of less than 80 dB ) EAS candidate: No Pre-Activation Audio: Yes Activation: 4 Weeks Bimodal candidate: Yes The patient appears cognitively able to use auditory cues and is able to un (more content not included)... [facility] 09-14-2022 History of Presen t illness Narrative Images from the original note were not included. [facility] [place] [facility] ADULT COCHLEAR IMPLANT CANDIDACY EVALUATION Audiometric Testing Name: Jamison Brito [facility]#: [id number] Date of Service: September 14, 2022 Date of : 1945 Age: [age] year old Referred by: Marley Cunningham MD This patient was referred for an evaluation to determine cochlear implant candidacy. Relevant case history includes the following: HISTORY: Audiologic Hearing loss: History of asymmetrical SNHL (LE>RE) which has worsened over time, especially in the left ear. Hearing loss is attributed to significant amount of noise exposure. First diagnosed with hearing loss in . 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 In larger rooms he has significant difficulties. Can become embarrassing when asking for repetition frequently and misses out on pieces of conversations. Occupational: Retired - worked at a [employer] for 32 years Phone: Has difficulties, some voices are easier than others Television: Difficulties Other Family Support: adequate support Would prefer follow-up CI appointments in [place] as it is closer to their home QUESTIONNAIRE RESULTS The patient completed the following questionnaires based on their current experience and scored as follows: Hearing Handicap Inventory 09/07/2022 HHIE Total Score 72 Dizziness Handicap Inventory 09/07/2022 Dizziness or imbalance No Tinnitus Handicap Inventory 09/07/2022 Tinnitus No Speech Spatial Qualities Questionaire 09/07/2022 Total Score 2.61 Speech Hearing Subscore 0.86 Spatial Hearing Subscore 4.29 Qualities of Hearing Subscore 2.33 PROMIS Global Health Scale 08/29/2022 Physical Health Percentile 53 AUDIOMETRIC TESTING Audiometric testing was completed at an outside clinic ([facility]) on 07/27/2022 with the following results: HEARING AID TEST RESULTS Phonak Dodie P90-UP clinic hearing aids were programmed to the patient s most recent audiogram. Devices were verified utilizing the [employer] equipment to NAL-NL 1 fitting methods. AIDED SII Meeting Target NAL-NL1 Gain RIGHT Ear CLINIC Device 36 Yes LEFT Ear CLINIC Device 37 Yes A CNC word list was administered in the right aided and left aided condition with the patient's hearing aids and the Clinic's hearing aids. Results indicated better performance with Clinic hearing aids and and the patient subjectively reported better sound quality with Clinic devices. Based on CNC word lists results, testing proceeded using Clinic hearing devices. AIDED SPEECH TESTING The contralateral ear was Plugged during testing. 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); results were: Hrdvqnyrc-Ldnkofz-Bvmzhxcnv Words (CNC) Test Condition List # Phonemes Words Right Ear (Patient [facility]) 2 0% 0% Left Ear (Patient [facility]) 4 0% 0% Right Ear (Clinic [facility]) 3 69% 40% Left Ear (Clinic [facility]) 5 32% 16% Bilateral 6 85% 72% AZ BIO (quiet) Test Condition List # Score Right Ear 1 58% Left Ear 3 10% Bilateral 6 56% AZ BIO (quiet, -10 dB HL) Test Condition List # Score Bilateral 4 54% AZ BIO (+5 SNR) Test Condition List # Score Right Ear 2 0% Left Ear DNT DNT Bilateral 7 15% Discontinued after 10 sentences INTERPRETATION OF RESULTS Speech perception testing suggests very poor performance in the left hearing aid only conditions and all speech in noise conditions. SUMMARY AND RECOMMENDATIONS Based on the audiometric testing, Candidate in the left ear Based on audiometric testing, this patient meets FDA criteria for traditional for cochlear implantation in the LEFT ear Potential Candidate (R/L/BILATERAL) LEFT Hearing Preservation Yes (*Hearing preservation candidates have low-frequency (125, 250, 500 Hz) air thresholds of less than 80 dB ) EAS candidate: No Pre-Activation Audio: Yes Activation: 4 Weeks Bimodal candidate: Yes The patient appears cognitively able to use auditory cues and is able to undergo an extensive rehabilitation process. He is able to participate in a post-cochlear implant rehabilitation program in order to achieve benefit from the cochlear implant device. This case will be discussed at the next scheduled Hearing Implant Program (HIP) team meeting. The patient understands that determination of candidacy is an interdisciplinary process and final determination of candidacy will be communicated via certified mail following team review. NOTE: recommended re-programming of current Oticon hearing aids (real ear verification measures). TOTAL TIME: 90 minutes Evaluation of auditory status: 20 minutes programming/verifying hearing aid(s) + 55 minutes aided testing = 75 minutes TOTAL Danyelle Doyle, CCC/A copied to: MD Sue Cash, HIP Coordinator documented in this encounter [facility] 09-12-2022 Note HNO ID: [id number] Author: RT Rafi(R) Service: ? Author Type: Car Deliverer Type: Progress Notes Filed: 09/12/2022 1:31 PM Note Text: Radiology Service Progress Note PATIENT NAME: Jamison Brito DATE OF SERVICE: September 12, 2022 TIME: 1:31 PM PATIENT IDENTITY VERIFICATION COMPLETED USING TWO (2) IDENTIFIERS: Name and Date of confirmed by patient verbally. FALL SCREENING: Has the patient had 2 falls in the last year or 1 fall with injury or currently using an Ambulatory Assistive Device (Walker, Cane, Wheelchair, Crutches, etc.)? No PATIENT GENDER DATA: Male PATIENT RELEVANT IMPLANT DATA REVIEWED: Yes RADIOLOGY DEPARTMENT: CT; Exam(s) Completed: Temporal Bones PERIPHERAL IV DATA: Not applicable SIGNED BY: RT Jimy(R) September 12, 2022 1:31 PM [facility] 09-12-2022 History of Presen t illness Narrative Radiology Service Progress Note PATIENT NAME: Jamison Brito DATE OF SERVICE: September 12, 2022 TIME: 1:31 PM PATIENT IDENTITY VERIFICATION COMPLETED USING TWO (2) IDENTIFIERS: Name and Date of confirmed by patient verbally. FALL SCREENING: Has the patient had 2 falls in the last year or 1 fall with injury or currently using an Ambulatory Assistive Device (Walker, Cane, Wheelchair, Crutches, etc.)? No PATIENT GENDER DATA: Male PATIENT RELEVANT IMPLANT DATA REVIEWED: Yes RADIOLOGY DEPARTMENT: CT; Exam(s) Completed: Temporal Bones PERIPHERAL IV DATA: Not applicable SIGNED BY: RT Jimy(R) September 12, 2022 1:31 PM documented in this encounter [facility] 09-01-2022 Note HNO ID: [id number] Author: Marley Cunningham MD Service: ? 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 Chief Complaint Bilateral sensorineural deafness History of Present Illness History of noise induced bilateral SNHL. Has been wearing bilateral hearing aids for 20 years. Has had worsening of hearing over the last ten years with the left ear becoming much worse. He is interested in a left cochlear implant. He denies tinnitus, dysequilibrium, or concerns with facial movement/weakness. No history of surgeries to the ears. No ototoxic medications. Significant noise exposure in his work without ear protection. PMH: No past medical history on file. PSH: No past surgical history on file. Meds: No current outpatient medications Allergies: ALLERGIES Not on File SH -Smoking: Tobacco Use: Medium Risk Smoking Tobacco Use: Former Smokeless Tobacco Use: Unknown Passive Exposure: Not on file FH family history is not on file. Review of Systems A review of systems was performed and was negative except as indicated above. Physical Exam There were no vitals taken for this visit. Constitutional: Well appearing, no acute distress, oriented, conversant Ears: Patient?s ears were examined under the microscope given prior complex history of ear symptoms necessitating use. Left Pinna:normal External auditory canal:clear Tympanic membrane: intact without perforation without retraction Right Pinna:normal External auditory canal:clear Tympanic membrane: intact without perforation without retraction Neuro: Extraocular movements intact midline tongue protrusion symmetric palate elevation Facial nerve: Right: I/ House-Brackmann scale Left: I/ House-Brackmann scale Voice: normal with good projection and no evidence of dysphonia Respiratory Effort: unlabored without stridor or stertor Eyes: Extraocular movements intact, no lid or conjunctival inflammation or drainage Face: No gross lesions. Nose: No obvious external deformity or lesions. Oral Cavity/Oropharynx: Mucous membranes are moist and pink, tongue without lesions, no trismus, no obvious mucosal lesions. Dark Neck: No masses, adenopathy or tenderness. Trachea midline. Audiometric Testin02/08/22: personally reviewed Imaging No imaging to review Impression / Recommendations ASSESSMENT/PLAN: 1. Sensorineural hearing loss (SNHL) of both ears - ICD9: 389.18, ICD10: H90.3 - CT TEMP BONES WO IVCON - MRI BRAIN WO/W IVCON - HEARING IMPLANTABLE DEVICES (E.G. COCHLEAR IMPLANTS (CI), BONE ANCHORED (HAZEL), SENSORY DEVICES) Discussed with the patient that the patient would be a reasonable candidate for a left cochlear implant at the [facility]. Since patient perceives that right ear to be better, would consider implanting left first and reassess of how he does with the first implant and consider for bilateral later. The benefits and risks of cochlear implant surgery were discussed in extensive detail with the patient today. The benefits would be to improve hearing in the implanted ear without the use of a hearing aid. The risks include loss of residual hearing, dizziness, facial nerve injury, change in taste, failure of device, skin flap infection, meningitis, and failure to achieve desired level of performance. Patient understood the risks and wishes to proceed with the surgery -Getting an MRI scan of any kind after CI surgery may require magnet removal surgically if more than 3.0 Olga and if not removed will create a shadow on a brain MRI scan that may obsure a portion of the temporal region. The evaluation for a CI includes: 1. Imaging of the temporal bone to ensure that the middle and inner ear anatomy of the ear will support CI surgery- order placed for a temporal bone CT as well as MRI scan. 2. CI audiolo consultation to formally assess hearing - 3. Patient with no history of dizziness/vertigo, do not recommend preoperative baseline vestibular testing done 4. Patient needs to assure Pneumovax and Prevnar 13 vaccine are up to date, if not already up to date to be given by the PCP to reduce the very rare risk of post-surgery meningitis, based on CDC recommendations Immunization History Administered Date(s) Administered COVID-19 vaccine, age 12+ yr, bivalent (Axonify) 02/13/2022 5. Patient will need medical clearance for surgery. 6. Discussed that after abovementioned tests, patient's case will be presented at the multidisciplinary at the next scheduled Hearing Implant Program (HIP) team meeting 7. After completion of the CI evaluation Insurance approval will be obtaine (more content not included)... [facility] 09-01-2022 Instructions Trinidad Biswas MD - 09/01/2022 4:17 PM EDT COCHLEAR IMPLANTS, VACCINATIONS, AND YOU DATE RECEIVED BOOSTER AT AGE 65 PREVNAR-13 PNEUMOVAX (24 valent) The CDC current recommendations include both x as well as PREVNAR-13 and PNEUMOVAX vaccinations to best safe-guard against pneumococcal meningitis (life-threatening infection of brain and spinal fluid) in cochlear implant recipients. The [facility] Hearing Implant Program requires its candidates have received at least the first vaccination prior to scheduling cochlear implant surgery. Some guidelines for you and your primary care physician: We recommend PREVNAR-13 first, then PNEUMOVAX 2 months later. If you has previously received PNEUMOVAX, then PREVNAR-13 may be given no sooner than 12 months later PNEUMOVAX booster is required at age 65. No booster is required of PREVNAR-13 If you are greater than age 65 at time of PNEUMOVAX administration, no booster is required. Please fax completed vaccination record to [facility] Hearing Implant Program ATTN TANG CAMILO, FAX [phone] The evaluation for a CI includes: 1. Imaging of the temporal bone to ensure that the middle and inner ear anatomy of the ear will support CI surgery- order placed for a temporal bone CT as well as MRI scan. 2. CI audiolo consultation to formally assess hearing - (already done, patient is cleared from audiologic standpoint) 3. Patient with a history of dizziness/vertigo, recommend preoperative baseline vestibular testing done 4. Patient needs to assure Pneumovax and Prevnar 13 vaccine are up to date, if not already up to date to be given by the PCP to reduce the very rare risk of post-surgery meningitis, based on CDC recommendations The CDC current recommendations include both PREVNAR-13 and PNEUMOVAX vaccinations to best safe-guard against pneumococcal meningitis (life-threatening infection of brain and spinal fluid) in cochlear implant recipients. The [facility] Hearing Implant Program requires its candidates have received at least the first vaccination prior to scheduling cochlear implant surgery. Some guidelines for you and your primary care physician: We recommend PREVNAR-13 first, then PNEUMOVAX 2 months later. If you has previously received PNEUMOVAX, then PREVNAR-13 may be given no sooner than 12 months later PNEUMOVAX booster is required at age 65. No booster is required of PREVNAR-13 If you are greater than age 65 at time of PNEUMOVAX administration, no booster is required. Please fax completed vaccination record to [facility] Hearing Implant Program ATTN TANG CAMILO, FAX [phone] 5. Patient will need medical clearance for surgery. 6. Discussed that after abovementioned tests, patient's case will be presented at the multidisciplinary at the next scheduled Hearing Implant Program (HIP) team meeting 7. After completion of the CI evaluation Insurance approval will be obtained and surgery scheduled. documented in this encounter [facility] 09-01-2022 Nurse Note Tobacco Use: Types: Cigarettes Was smoking cessation packet given? N/A - Patient is a non-smoker or quit >1 year ago. Was a referral initiated?N/A Patient is a non-smoker documented in this encounter [facility] 09-01-2022 History of Presen t illness Narrative Images from the original note were not included. 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 Chief Complaint Bilateral sensorineural deafness History of Present Illness History of noise induced bilateral SNHL. Has been wearing bilateral hearing aids for 20 years. Has had worsening of hearing over the last ten years with the left ear becoming much worse. He is interested in a left cochlear implant. He denies tinnitus, dysequilibrium, or concerns with facial movement/weakness. No history of surgeries to the ears. No ototoxic medications. Significant noise exposure in his work without ear protection. PMH: No past medical history on file. PSH: No past surgical history on file. Meds: No current outpatient medications Allergies: ALLERGIES Not on File SH -Smoking: Tobacco Use: Medium Risk Smoking Tobacco Use: Former Smokeless Tobacco Use: Unknown Passive Exposure: Not on file FH family history is not on file. Review of Systems A review of systems was performed and was negative except as indicated above. Physical Exam There were no vitals taken for this visit. Constitutional: Well appearing, no acute distress, oriented, conversant Ears: Patient s ears were examined under the microscope given prior complex history of ear symptoms necessitating use. Left Pinna:normal External auditory canal:clear Tympanic membrane: intact without perforation without retraction Right Pinna:normal External auditory canal:clear Tympanic membrane: intact without perforation without retraction Neuro: Extraocular movements intact midline tongue protrusion symmetric palate elevation Facial nerve: Right: I/ House-Brackmann scale Left: I/ House-Brackmann scale Voice: normal with good projection and no evidence of dysphonia Respiratory Effort: unlabored without stridor or stertor Eyes: Extraocular movements intact, no lid or conjunctival inflammation or drainage Face: No gross lesions. Nose: No obvious external deformity or lesions. Oral Cavity/Oropharynx: Mucous membranes are moist and pink, tongue without lesions, no trismus, no obvious mucosal lesions. Dark Neck: No masses, adenopathy or tenderness. Trachea midline. Audiometric Testin02/08/22: personally reviewed Imaging No imaging to review Impression / Recommendations ASSESSMENT/PLAN: 1. Sensorineural hearing loss (SNHL) of both ears - ICD9: 389.18, ICD10: H90.3 - CT TEMP BONES WO IVCON - MRI BRAIN WO/W IVCON - HEARING IMPLANTABLE DEVICES (E.G. COCHLEAR IMPLANTS (CI), BONE ANCHORED (HAZEL), SENSORY DEVICES) Discussed with the patient that the patient would be a reasonable candidate for a left cochlear implant at the [facility]. Since patient perceives that right ear to be better, would consider implanting left first and reassess of how he does with the first implant and consider for bilateral later. The benefits and risks of cochlear implant surgery were discussed in extensive detail with the patient today. The benefits would be to improve hearing in the implanted ear without the use of a hearing aid. The risks include loss of residual hearing, dizziness, facial nerve injury, change in taste, failure of device, skin flap infection, meningitis, and failure to achieve desired level of performance. Patient understood the risks and wishes to proceed with the surgery -Getting an MRI scan of any kind after CI surgery may require magnet removal surgically if more than 3.0 Olga and if not removed will create a shadow on a brain MRI scan that may obsure a portion of the temporal region. The evaluation for a CI includes: 1. Imaging of the temporal bone to ensure that the middle and inner ear anatomy of the ear will support CI surgery- order placed for a temporal bone CT as well as MRI scan. 2. CI audiolo consultation to formally assess hearing - 3. Patient with no history of dizziness/vertigo, do not recommend preoperative baseline vestibular testing done 4. Patient needs to assure Pneumovax and Prevnar 13 vaccine are up to date, if not already up to date to be given by the PCP to reduce the very rare risk of post-surgery meningitis, based on CDC recommendations Immunization History Administered Date(s) Administered COVID-19 vaccine, age 12+ yr, bivalent (Axonify) 02/13/2022 5. Patient will need medical clearance for surgery. 6. Discussed that after abovementioned tests, patient's case will be presented at the multidisciplinary at the next scheduled Hearing Implant Program (HIP) team meeting 7. After completion of the CI evaluation Insurance approval will be obtained and surgery scheduled. All questions were answered, patient demonstrated understanding and would like to further proceed with the surgery Attending Note I evaluated the patient and personally participated in the ruvalcaba components with Trinidad Biswas MD. I agree with the resident's findings and plan as documented and have discussed the case and management of the patient's care with the resident. Signature: Marley Cunningham MD Date: 09/01/2022 Time: 6:29 PM Marley Cunningham MD Otology/Neurotology/Lateral Skull-Base Surgery [facility] [place] [facility] Medical Decision Making: Problems: Moderate: New problem with uncertain prognosis Data: Unique test result(s) reviewed: 1 Unique test(s) ordered: 3+ Independent interpretation of test from other physician/QHCP Risk: Minimal: Minimal risk from testing/treatment Medical Decision Making Level: 4 - Moderate documented in this encounter [facility] Diagnosis Asymmetrical sensorineural hearing loss- Primary Sensorineural hearing loss, asymmetrical History of exposure to noise [facility] Diagnosis Need for pneumococcal vaccine- Primary Need for prophylactic vaccination against streptococcus pneumoniae (pneumococcus) [facility] Diagnosis Asymmetrical sensorineural hearing loss- Primary Sensorineural hearing loss, asymmetrical Sensorineural hearing loss (SNHL) of both ears [facility] Diagnosis Cochlear implant follow-up- Primary Other specified aftercare following surgery Sensorineural hearing loss (SNHL) of both ears [facility] Diagnosis Sensorineural hearing loss (SNHL) of both ears- Primary Tinnitus, bilateral Unspecified tinnitus Cochlear implant in place Other postprocedural status [facility] Diagnosis Sensorineural hearing loss (SNHL) of both ears- Primary Cochlear implant in place Other postprocedural status [facility] Diagnosis Sensorineural hearing loss (SNHL) of both ears- Primary Cochlear implant follow-up Other specified aftercare following surgery [facility] Diagnosis Sensorineural hearing loss (SNHL) of both ears- Primary Cochlear implant in place Other postprocedural status [facility] Diagnosis Sensorineural hearing loss (SNHL) of both ears [facility] Diagnosis Sensorineural hearing loss (SNHL) of both ears documented in this encounter [facility] for referral (narrative)* Diagnostic Procedure Only (Routine) - Closed Specialty Diagnoses / Procedures Referred By Contac t Referred To Contact CT IMAGING Diagnoses Sensorineural hearing loss (SNHL) of both ears Procedures CT TEMP BONES WO IVCON CT ORBIT SELLA/POST FOSSA/EAR W/O CONTRAST MATRL Marley Cunningham MD [address] [place] [address] [place] [address] Referral ID Status Reason Start Date Expiration Date Visits Re quested Visits Authorized [id number] Closed 09/05/2022 05/14/2023 1 1 [facility] for referral (narrative)* Diagnostic Procedure Only (Routine) - Closed Specialty Diagnoses / Procedures Referred By Contac t Referred To Contact MR IMAGING Diagnoses Sensorineural hearing loss (SNHL) of both ears Procedures MRI BRAIN WO/W IVCON MRI BRAIN BRAIN STEM W/O W/CONTRAST MATERIAL Marley Cunningham MD [address] [place] [address] [place] [address] Referral ID Status Reason Start Date Expiration Date V isits Requested Visits Authorized [id number] Closed Auto-Generate d Referral 09/19/2022 05/14/2023 1 1 [facility] for visit Narrative* Diagnostic Procedure Only (Routine) - Closed Specialty Diagnoses / [facility] Diagnoses Sensorineural hearing loss (SNHL) of both ears Procedures MRI BRAIN WO/W IVCON MRI BRAIN BRAIN STEM W/O W/CONTRAST MATERIAL Marley Cunningham MD [address] [place] [address] [place] [address] Referral ID Status Reason Start Date Expiration Date V isits Requested Visits Authorized [id number] Closed Auto-Generate d Referral 09/19/2022 05/14/2023 1 1 [facility] Summary Purpose Family History No Family History Records FoundNo Family History Records Found Advance Directives No Advanced Directives Records FoundDocuments on File Type Date Recorded 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 Advance Directive(s) 12/27/2022 9:05 AM Documents on File Type Date Recorded 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 Advance Directive(s) 12/27/2022 9:05 AM Reason for Referral Specialty Diagnoses / Procedures Referred By Contac t Referred To Contact MR IMAGING Diagnoses Sensorineural hearing loss (SNHL) of both ears Procedures MRI BRAIN WO/W IVCON MRI BRAIN BRAIN STEM W/O W/CONTRAST MATERIAL Marley Cunningham MD [address] [place] [address] Mr Imaging Referral ID Status Reason Start Date Expiration Date Visits Requested Visits Authorized [id number] Pending Review Auto-Generat ed Referral 09/01/2022 10/01/2023 1 1 [facility] Diagnoses / [facility] Diagnoses Sensorineural hearing loss (SNHL) of both ears Procedures CT TEMP BONES WO IVCON CT ORBIT SELLA/POST FOSSA/EAR W/O CONTRAST MATRL Marley Cunningham MD [address] [place] [address] Ct Imaging Referral ID Status Reason Start Date Expiration Date Visits Requested Visits Authorized [id number] Pending Review Auto-Generat ed Referral 09/01/2022 10/01/2023 1 1 [facility] Diagnoses / [facility] To Contact Procedures HEARING TEST/AUDIOGRAM COMPRE AUDIOMETRY THRESHOLD EVAL SP Christelle Lu, AUD [address] [place] [address] [facility] [place] [address] Referral ID Status Reason Start Date Expiration Date Visits Requested Visits Authorized [id number] Pending Review Auto-Generat ed Referral 01/19/2023 01/20/2024 1 1 Additional Source Comments (unrecognized sect ion and content) No Status Records FoundNo Status Records Found INFORMATION SOURCE (unrecogn ized section and content) DATE CREATED AUTHOR AUTHOR'S ORGANMILTON ATION 04/28/2023 [facility] Source Comments (unrecognize d section and content) In the event this informatio n is protected by the Federal Confidentiality of Alcohol and Drug Abuse Patient Records regulations: The Federal rules restrict any use of the information to criminally investigate or prosecute any alcohol or drug abuse patient.[facility] the event this information is protected by the Federal Confidentiality of Alcohol and Drug Abuse Patient Records regulations: The Federal rules restrict any use of the information to criminally investigate or prosecute any alcohol or drug abuse patient.[facility] the event this information is protected by the Federal Confidentiality of Alcohol and Drug Abuse Patient Records regulations: The Federal rules restrict any use of the information to criminally investigate or prosecute any alcohol or drug abuse patient.[facility] the event this information is protected by the Federal Confidentiality of Alcohol and Drug Abuse Patient Records regulations: The Federal rules restrict any use of the information to criminally investigate or prosecute any alcohol or drug abuse patient.[facility] the event this information is protected by the Federal Confidentiality of Alcohol and Drug Abuse Patient Records regulations: The Federal rules restrict any use of the information to criminally investigate or prosecute any alcohol or drug abuse patient.[facility] the event this information is protected by the Federal Confidentiality of Alcohol and Drug Abuse Patient Records regulations: The Federal rules restrict any use of the information to criminally investigate or prosecute any alcohol or drug abuse patient.[facility] the event this information is protected by the Federal Confidentiality of Alcohol and Drug Abuse Patient Records regulations: The Federal rules restrict any use of the information to criminally investigate or prosecute any alcohol or drug abuse patient.[facility] the event this information is protected by the Federal Confidentiality of Alcohol and Drug Abuse Patient Records regulations: The Federal rules restrict any use of the information to criminally investigate or prosecute any alcohol or drug abuse patient.[facility] the event this information is protected by the Federal Confidentiality of Alcohol and Drug Abuse Patient Records regulations: The Federal rules restrict any use of the information to criminally investigate or prosecute any alcohol or drug abuse patient.[facility] the event this information is protected by the Federal Confidentiality of Alcohol and Drug Abuse Patient Records regulations: The Federal rules restrict any use of the information to criminally investigate or prosecute any alcohol or drug abuse patient.[facility] the event this information is protected by the Federal Confidentiality of Alcohol and Drug Abuse Patient Records regulations: The Federal rules restrict any use of the information to criminally investigate or prosecute any alcohol or drug abuse patient.[facility] the event this information is protected by the Federal Confidentiality of Alcohol and Drug Abuse Patient Records regulations: The Federal rules restrict any use of the information to criminally investigate or prosecute any alcohol or drug abuse patient.[facility] the event this information is protected by the Federal Confidentiality of Alcohol and Drug Abuse Patient Records regulations: The Federal rules restrict any use of the information to criminally investigate or prosecute any alcohol or drug abuse patient.[facility] the event this information is protected by the Federal Confidentiality of Alcohol and Drug Abuse Patient Records regulations: The Federal rules restrict any use of the information to criminally investigate or prosecute any alcohol or drug abuse patient.[facility] the event this information is protected by the Federal Confidentiality of Alcohol and Drug Abuse Patient Records regulations: The Federal rules restrict any use of the information to criminally investigate or prosecute any alcohol or drug abuse patient.[facility] the event this information is protected by the Federal Confidentiality of Alcohol and Drug Abuse Patient Records regulations: The Federal rules restrict any use of the information to criminally investigate or prosecute any alcohol or drug abuse patient.[facility] Reason for Visit (unrecogniz ed section and content) Reason Comments Hearing Loss Reason Comments 10/18/2022 HIP Team Meeting 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 Reason Comments Patient Update Reason Comments Post Op Follow Up Reason Comments Post Op No concerns Reason Comments Hearing Test Reason Comments Cochlear Implant Reason Comments Hearing Aid Fitting Reason Comments Radiology CT Specialty Diagnoses / Procedures Referred By Contac t Referred To Contact CT IMAGING Diagnoses Sensorineural hearing loss (SNHL) of both ears Procedures CT TEMP BONES WO IVCON CT ORBIT SELLA/POST FOSSA/EAR W/O CONTRAST MATRL Marley Cunningham MD [address] [place] [id number] Imaging [place] [address] Referral ID Status Reason Start Date Expiration Date Visits Re quested Visits Authorized [id number] Closed 09/05/2022 05/14/2023 1 1 FOR RECORDS PERTAINING TO PATIENTS WHO ARE OR HAVE BEEN ENROLLED IN A CHEMICAL DEPENDENCY/SUBSTANCEABUSE PROGRAM, SOME INFORMATION MAY BE OMITTED. This clinical summary was aggregated from multiple sources. Caution should be exercised in using it in the provision of clinical care. This summary normalizes information from multiple sources, and as a consequence, information in this document may materially change the coding, format and clinical context of patient data. In addition, data may be omitted in some cases. CLINICAL DECISIONS SHOULD BE BASED ON THE PRIMARY CLINICAL RECORDS. [employer] provides no warranty or guarantee of the accuracy or completeness of information in this document.
[2023-07-10 10:06] LABS: Absolute Lymphocyte Count 0.95 X10^3/uL (0.83-4.51); Absolute Neutrophil Count 3.8 X10^3/uL (2.0-7.7); Basophil# 0.08 X10^3/uL; Basophil% 1.5 % (0-1); Eosinophil# 0.12 X10^3/uL; Eosinophils% 2.2 % (0-5); Hematocrit 42.4 % (40-54); Hemoglobin 13.8 g/dL (13.0-16.5); Lymphocyte # 0.95 X10^3/ul (0.83-4.51); Lymphocyte % 17.6 % (19-41); Mean Corp Hgb Conc 32.5 g/dL (32-36); Mean Corpuscular Hgb 30.9 pg (27.0-32.0); Mean Corpuscular Volume 94.9 fL (80-94); Monocyte# 0.45 X10^3/uL; Monocyte% 8.3 % (0-10); NRBC Flagged by Analyzer 0.9 % (0-5); Neutrophil # 3.76 X10^3/uL (2.7-7.7); Neutrophil % 69.5 % (47-70); Platelet Count 334 K/mm3 (150-450); RBC Distribution Width SD 45.1 fl (35.1-43.9); Red Blood Count 4.47 M/mm3 (4.6-6.2); White Blood Count 5.4 K/mm3 (4.4-11.0)
[2023-07-10 10:35] LABS: ALB/GLOB Ratio 0.9 RATIO (0.9-2.4); AST(SGOT) 19 U/L (15-37); Alanine Aminotransfer ALT/SGPT 27 U/L (16-61); Albumin, Serum 3.5 g/dL (3.2-5.0); Alkaline Phosphatase 63 U/L (45-117); Anion Gap 8 (5-15); BUN 6 mg/dL (7-18); BUN/Creat Ratio 7.4 RATIO (10-20); Chloride 96 mmol/L (98-107); Creatinine, Serum 0.81 mg/dL (0.70-1.30); EST Glomerular Filtration Rate 98 mL/min (>60); Est Glom Filt Rate - Afr Amer 118 mL/min (>60); Globulin 4.1 g/dL (2.2-4.2); Glucose 92 mg/dL (74-106); Potassium 3.7 mmol/L (3.5-5.1); Protein, Total 7.6 g/dL (6.4-8.2); Sodium Level 132 mmol/L (136-145)
== END | disposition home or self-care (01) ==
LOC: MTLAB 08:05
PROVIDERS: PCP Preventive Medicine Occupational Medicine; Referring Provider Internal Medicine Rheumatology; Visit Provider Internal Medicine Rheumatology
DX: M05.70 Rheumatoid arthritis with rheumatoid factor of unspecified site without organ or systems involvement (principal); M35.00 Sjogren syndrome, unspecified; Z79.899 Other long term (current) drug therapy
CPT/HCPCS: 36415; 80053; 85025

== ENCOUNTER → 2023-10-13 | Outpatient (CLI) | payer MEDICARE, SELFPAY ==
[2023-10-13 10:19] LABS: Absolute Lymphocyte Count 0.89 X10^3/uL (0.83-4.51); Absolute Neutrophil Count 3.6 X10^3/uL (2.0-7.7); Basophil# 0.05 X10^3/uL; Eosinophil# 0.11 X10^3/uL; Eosinophils% 2.1 % (0-5); Hematocrit 36.6 % (40-54); Lymphocyte # 0.89 X10^3/ul (0.83-4.51); Lymphocyte % 17.2 % (19-41); Mean Corp Hgb Conc 32.8 g/dL (32-36); Mean Corpuscular Hgb 31.3 pg (27.0-32.0); Mean Corpuscular Volume 95.3 fL (80-94); Mean Platelet Vol. 9.4 fl (6.2-12.0); Monocyte# 0.48 X10^3/uL; Monocyte% 9.3 % (0-10); NRBC Flagged by Analyzer 0.4 % (0-5); Neutrophil # 3.61 X10^3/uL (2.7-7.7); Neutrophil % 69.8 % (47-70); Platelet Count 306 K/mm3 (150-450); RBC Distribution Width CV 12.9 % (11.6-14.6); RBC Distribution Width SD 44.2 fl (35.1-43.9); Red Blood Count 3.84 M/mm3 (4.6-6.2); White Blood Count 5.2 K/mm3 (4.4-11.0)
[2023-10-13 11:16] LABS: ALB/GLOB Ratio 0.8 RATIO (0.9-2.4); AST(SGOT) 14 U/L (15-37); Alanine Aminotransfer ALT/SGPT 14 U/L (16-61); Albumin, Serum 3.3 g/dL (3.2-5.0); Alkaline Phosphatase 75 U/L (45-117); Anion Gap 8 (5-15); BUN 7 mg/dL (7-18); BUN/Creat Ratio 8.8 RATIO (10-20); Chloride 98 mmol/L (98-107); Creatinine, Serum 0.79 mg/dL (0.70-1.30); EST Glomerular Filtration Rate 100 mL/min (>60); Est Glom Filt Rate - Afr Amer 121 mL/min (>60); Globulin 4.4 g/dL (2.2-4.2); Glucose 92 mg/dL (74-106); Potassium 3.4 mmol/L (3.5-5.1); Protein, Total 7.7 g/dL (6.4-8.2); Sodium Level 131 mmol/L (136-145)
== END | disposition home or self-care (01) ==
LOC: MTLAB 08:53
PROVIDERS: PCP Preventive Medicine Occupational Medicine; Referring Provider Internal Medicine Rheumatology; Visit Provider Internal Medicine Rheumatology
DX: M05.70 Rheumatoid arthritis with rheumatoid factor of unspecified site without organ or systems involvement (principal); Z79.899 Other long term (current) drug therapy
CPT/HCPCS: 36415; 80053; 85025

== ENCOUNTER → 2023-11-13 | Outpatient (CLI) | payer MEDICARE, SELFPAY ==
[2023-11-14 13:08] LABS: PSA, Free 1.23 ng/mL; PSA, Free % 15.4 % (.)
== END | disposition home or self-care (01) ==
LOC: MTLAB 08:54
PROVIDERS: PCP Preventive Medicine Occupational Medicine; Referring Provider Nurse Practitioner; Visit Provider Nurse Practitioner
DX: R97.20 Elevated prostate specific antigen [PSA] (principal)
CPT/HCPCS: 36415; 84153; 84154

== ENCOUNTER 2023-11-29 11:33 | Inpatient (IN) | payer MEDICARE, SELFPAY ==
[2023-11-29] VITALS (7 sets, daily range): BP systolic 111–137; BP diastolic 65–96; PULSE 80–89; RESP 16–19; TEMP 36.4–37.3; O2SAT 94–98; BMI 22.4; BMI 21.4
--- NOTE | 2023-11-29 12:15 | EKG12_ITS ---
Test Reason : FALL Blood Pressure : / mmHG Vent. Rate : 087 BPM Atrial Rate : 087 BPM P-R Int : 138 ms QRS Dur : 086 ms QT Int : 338 ms P-R-T Axes : 066 059 062 degrees QTc Int : 406 ms Sinus rhythm with Premature atrial complexes Otherwise normal ECG Confirmed by DEBRA BOLAÑOS, VANESSA ([id number]), avid editor CAMELIA CASTILLO ([id number]) on 11/30/2023 12:59:04 PM Referred By: NEFTALI Confirmed By:VANESSA RICHARDSON MD
--- NOTE | 2023-11-29 12:15 | CT_ITS ---
STUDY: CT BRAIN WITHOUT CONTRAST REASON FOR EXAM: Male, 78 years old. Head injury due to recent falls. RADIATION DOSAGE (If Supplied By Facility): CTDIvol = ( 44.99 ) mGy, DLP = ( 829.85 ) mGycm TECHNIQUE: Transaxial CT imaging of the brain was performed without administration of intravenous contrast material. Individualized dose optimization techniques were used for this CT. COMPARISON: No relevant priors. FINDINGS: Normal soft tissue structures. Normal calvarium. There is mild cerebral atrophy with widening of the extra-axial spaces and ventricular dilatation. There are areas of decreased attenuation within the white matter tracts of the supratentorial brain, consistent with microvascular disease changes. There are small punctate calcifications of the basal ganglia which are seen in the aging brain as a normal variant. Normal brainstem. Normal cerebellum. There is no intracranial hemorrhage. There are no findings of an acute ischemic infarction. Atherosclerotic calcification of the vertebral arteries and cavernous portions of the internal carotid arteries bilaterally. Left-sided cochlear implant. Normal visualized paranasal sinuses. CT/Brain/Head without Contrast IMPRESSION: Chronic involutional changes of the brain. Electronically Signed: Nelson Rene MD at 14:08 EDT ,
--- NOTE | 2023-11-29 12:25 | RAD_ITS ---
STUDY: X-RAY CHEST REASON FOR EXAM: Male, 78 years old. Falls TECHNIQUE: Single AP portable view of the chest. COMPARISON: None. FINDINGS: EKG electrodes are seen. Hyperinflation. Blunting of the right costophrenic angle. Normal size heart. Normal mediastinum and keny. Normal visualized pulmonary arteries. Normal visualized aortic arch and descending thoracic aorta. There are diffuse degenerative changes of the visualized thoracic spine. Normal visualized ribs, clavicles, and shoulders. There is no demonstrated abnormality of the visualized soft tissue structures of the upper abdomen. RAD/Chest 1 View (Portable) IMPRESSION: Hyperinflation. The lungs are clear. Blunting of the right costophrenic angle. Electronically Signed: Nelson Rene MD at 13:10 EDT ,
[2023-11-29 12:54] LABS: Absolute Lymphocyte Count 0.53 X10^3/uL (0.83-4.51); Basophil# 0.03 X10^3/uL; Basophil% 0.2 % (0-1); Hematocrit 29.6 % (40-54); Hemoglobin 10.3 g/dL (13.0-16.5); Lymphocyte # 0.53 X10^3/ul (0.83-4.51); Lymphocyte % 4.4 % (19-41); Mean Corp Hgb Conc 34.8 g/dL (32-36); Mean Corpuscular Hgb 31.1 pg (27.0-32.0); Mean Corpuscular Volume 89.4 fL (80-94); Mean Platelet Vol. 9.1 fl (6.2-12.0); Monocyte# 1.31 X10^3/uL; Monocyte% 10.8 % (0-10); NRBC Flagged by Analyzer 0 % (0-5); Neutrophil # 10.04 X10^3/uL (2.7-7.7); Neutrophil % 82.4 % (47-70); POSITIVE DIFFERENTIAL YES; Platelet Count 287 K/mm3 (150-450); RBC Distribution Width SD 42.4 fl (35.1-43.9); Red Blood Count 3.31 M/mm3 (4.6-6.2); White Blood Count 12.2 K/mm3 (4.4-11.0)
--- NOTE | 2023-11-29 12:58 | ED.VIS.FALL ---
HPI HPI - Fall History of Present Illness Chief Complaint: Fall Informant: patient and spouse/S.O. Narrative Narrative: Patient is a 78-year-old male with history of BPH, cochlear implant and rheumatoid arthritis (on methotrexate and prednisone) presenting with frequent falls. Over the past 10 days patient's had multiple falls. Denies loss of conscious. Had a bad fall last night where he actually hit his head on the right side. Was bleeding. states she thinks his glasses are his hearing aid cut his mormon. He has been very weak. He is been following Dr. Baltazar for urinary issues/enlarged prostate and was restarted on finasteride as well as tamsulosin. Has been developing urinary incontinence acutely as well. Denies any fever but has been having chills. Denies any chest pain or difficulty breathing. Denies any associate abdominal pain. Cannot tell me why he is falling or if he is having symptoms preceding his falls. brought him in for further evaluation. Does not use any assistive devices for ambulation at home. [facility] Medical History Rheumatoid arthritis History of spleen injury Cochlear implant in place Home Medications ?Medication ?Instructions ?Recorded ?Last Taken ?Type alprazolam 2 mg tablet 2 mg PO TID PRN PRN Anxiety 04/17/20 11/28/23 History ferrous sulfate, dried 159 mg (45 130 mg PO DAILY anemia 04/17/20 11/29/23 History mg iron) tablet,extended release folic acid 1 mg tablet 2 mg PO DAILY supplement 04/17/20 11/29/23 History methotrexate sodium 2.5 mg tablet 8 tab PO FR ra 04/17/20 11/24/23 History prednisone 10 mg tablet 10 mg PO DAILY ra 04/17/20 Unknown History tramadol 50 mg tablet 50 mg PO TID PRN PRN pain 04/17/20 Unknown History cevimeline 30 mg capsule 1 cap PO TID Dry Mouth 11/29/23 11/29/23 History cyclosporine 0.05 % eye drops in a 1 drp ophthalmic (eye) BID Dry eyes 11/29/23 11/29/23 History dropperette Allergy/AdvReac Type Severity Reaction Status Date / Time hydrocodone (From Vicodin) Allergy Swelling Verified 11/29/23 11:51 tramadol AdvReac Intermediate Other Verified 11/29/23 11:51 Surgical History S/P TURP Social History Smoking Status: Former smoker ROS ROS ED Constitutional Constitutional ED: Reports chills; Denies fever(s) Eyes Eyes: Denies change in vision Cardiovascular Cardiovascular: Denies chest pain Respiratory/Chest Respiratory/Chest: Denies cough or dyspnea Gastrointestinal Gastrointestinal: Denies abdominal pain, nausea or vomiting Genitourinary Genitourinary ED: Reports urinary frequency and other Details: Urinary incontinence Musculoskeletal Musculoskeletal: Denies arthralgias or myalgias Integumentary Reports Abrasions Neurologic Neurologic: Reports headache(s) and weakness; Denies paresthesias Psychiatric Psychiatric: Denies anxiety Hematologic/Lymphatic Hematologic/Lymphatic: Denies easy bleeding or easy bruising EXAM Physical Exam Const Vital Signs: 11/29/23 11:35 11/29/23 11:43 11/29/23 14:02 Temperature 98.8 F 97.5 F L Temperature Source Temporal Oral Pulse Rate 84 80 Respiratory Rate 16 16 Respiratory Effort Normal Respiratory Depth Normal Respiratory Pattern Normal Blood Pressure 137/75 H 112/65 Blood Pressure Mean 95 80 Pulse Ox 98 94 Oxygen Delivery Method Room Air Room Air Room Air Positive well nourished and well developed Constitutional Narrative: frail General Appearance ED: well developed HEENT Reports normocephalic HEENT Narrative: Healing abrasion just above the right ear from fall that occurred last night, no active bleeding. No gaping. No significant cephalhematoma appreciated. Eyes PERRL and EOMs intact bilaterally Chest Wall inspection of chest normal Resp normal respiratory effort and clear to auscultation bilaterally Cardio regular rate and regular rhythm GI non-tender GI Narrative: Mild fullness in the suprapubic region Extremity Extremity Narrative: No obvious deformity. Pelvis is stable. Patient able to ambulate but seems a bit unstable Neuro moves all extremities, no focal motor deficits and no sensory deficits noted Sensorium / Orientation: alert, oriented to person, oriented to place and oriented to time Motor Exam: general weakness Psych mental status grossly normal and thought process normal Skin Lesions: no lesions Rashes: no rashes MDM MDM MDM Narrative Medical decision making narrative: Patient is evaluated for increased falls and generalized weakness. She also recently developed urinary incontinence. He is currently under evaluation with urology for BPH and might require a TURP. Patient is hemodynamically stable emergency room. He has noted to have intermittent episodes of tachycardia on telemetry. I will question if he is having episodes of SVT. They will spontaneously resolve however. Patient is asymptomatic during this. Workup is remarkable for leukocytosis white blood cell count 12.2. He has a hemoglobin of 10.3 which is downtrending (baseline appears to be 12-13. No obvious signs of bleeding. In addition he does have a left shift with 2.2 immature granulocyte percentage. BMP is largely normal except for sodium and chloride which are low. Sodium is 124 and chloride is 87. Kidney function is normal. The hyponatremia could be causing weakness. Urinalysis consistent with infection as it does show 25-50 white blood cells and 2+ bacteria. Patient is reporting urinary incontinence I suspect he is having urinary retention. He is only urinating very small amounts at a time. Bladder scan shows greater than 700 cc. Nursing staff did have difficulty placing Rivera catheter. I spoke to his urologist, Dr. Baltazar, who is currently out of town but recommends trying an 18 [place] coud?. If they are unable to get a Rivera catheter and he will require transfer. He is given a Uro-Jet and I am able to personally place Rivera catheter. Patient has 1200+ cc of urine out. Given his frequent falls and leukocytosis in the setting of acute urinary tract infection will admit. Case discussed with main physician, Dr. Colindres. Urine culture sent and patient given dose of IV Rocephin in the emergency room. CT of the brain was obtained which did not show any acute process. Chest x-ray viewed by myself as well as radiology showed hyperinflation and some blunting of the right costophrenic angle but no acute infiltrate. Patient is not having any oxygen requirement to the emergency room. History & Record Review Discussion w/independent historian: Family Lab Data Attestation: I reviewed the patient's lab results. Labs: Laboratory Results - last 24 hr 11/29/23 11/29/23 12:33 13:08 WBC 12.2 H RBC 3.31 L Hgb 10.3 L Hct 29.6 L MCV 89.4 MCH 31.1 MCHC 34.8 RDW Std Deviation 42.4 RDW Coeff of Emanuel 13.0 Plt Count 287 MPV 9.1 Immature Gran % (Auto) 2.200 H Neut % (Auto) 82.4 H Lymph % (Auto) 4.4 L Wallace % (Auto) 10.8 H Eos % (Auto) 0.0 Baso % (Auto) 0.2 Absolute Neuts (auto) 10.0 H Absolute Lymphs (auto) 0.53 L Nucleated RBC % 0 Sodium 124 L Potassium 3.7 Chloride 87 L Carbon Dioxide 27.0 Anion Gap 10 BUN 11 Creatinine 0.87 Estim Creat Clear Calc 68.95 Est GFR (MDRD) Af Amer 109 Est GFR (MDRD) Non-Af 90 BUN/Creatinine Ratio 12.7 Glucose 109 H Calcium 8.9 Troponin I High Sens 14 TSH 0.91 Urine Color Yellow Urine Clarity Sl. Cloudy Urine pH 6.0 Ur Specific [place] 1.015 Urine Protein 100 H Urine Glucose (UA) Normal Urine Ketones 15 H Urine Occult Blood 250 H Urine Nitrite Negative Urine Bilirubin Negative Urine Urobilinogen 1 H Ur Leukocyte Esterase 100 H Urine RBC 5-10 SEEN Urine WBC 25-50 SEEN Ur Squamous Epith Cells 0-5 SEEN Urine Bacteria 2+ Urine Mucus 1+ Radiography Diagnostic Testing: Clinical Impression(s) from Imaging Studies Brain CT 11/29/23 12:15 IMPRESSION: Chronic involutional changes of the brain. Electronically Signed: Nelson Rene MD at 14:08 EDT , Chest X-Ray 11/29/23 12:25 IMPRESSION: Hyperinflation. The lungs are clear. Blunting of the right costophrenic angle. Electronically Signed: Nelson Rene MD at 13:10 EDT , Management Discussion w/another healthcare provider: Hospitalist Discharge Plan Dx/Rx/DC Orders Clinical Impression: UTI (urinary tract infection), Urinary retention, Debility, SVT (supraventricular tachycardia) Disposition Disposition: Acute Care Hospital [facility] Discharge Date/Time: 11/29/23 16:38
[2023-11-29] MEDS: Lidocaine Jelly 2% 20 ML Syringe (URO-JET) 1 APPLIC TOPICAL (13:17)
[2023-11-29 13:22] LABS: Color, Urine Yellow (Yellow); Glucose, Dipstick Normal (Normal); Ketone-Dipstick 15 mg/dl (Negative); Leukocyte Esterase-Dipstick 100 /ul (Negative); Nitrite-Dipstick Negative (Negative); Occult Blood-Urine 250 /ul (Negative); Protein-Dipstick 100 mg/dl (Negative); Specific Gravity, Urine 1.015 (1.002-1.030); Urine Bilirubin Dipstick Negative (Negative); Urine Clarity Sl. Cloudy (Clear); Urine Urobilinogen 1 mg/dl (Normal)
[2023-11-29 13:28] LABS: Anion Gap 10 (5-15); BUN 11 mg/dL (7-18); BUN/Creat Ratio 12.7 RATIO (10-20); Calcium,Total 8.9 mg/dL (8.5-10.1); Chloride 87 mmol/L (98-107); Creatinine, Serum 0.87 mg/dL (0.70-1.30); EST Glomerular Filtration Rate 90 mL/min (>60); Est Glom Filt Rate - Afr Amer 109 mL/min (>60); Estimated Creatinine Clearance 68.95 ml/min; Glucose 109 mg/dL (74-106); Potassium 3.7 mmol/L (3.5-5.1); Sodium Level 124 mmol/L (136-145); Thyroid Stim Hormone (TSH) 0.91 uIU/mL (0.358-3.74); Troponin-I HS 14 pg/mL (3.0-78.0)
[2023-11-29 13:29] LABS: White Blood Cells 25-50 SEEN /hpf (0-5)
[2023-11-29 13:30] LABS: Bacteria 2+ /hpf (None Seen); Mucous, Urine 1+ /hpf (<or=2+); Red Blood Cells-Urine 5-10 SEEN /hpf (0-5); Squamous Epithelial Cells - UA 0-5 SEEN /hpf (0-5)
[2023-11-29] MEDS: 0.9% Normal Saline (1000mL) 1,000 ML 150 ML IV ×2 (15:18→17:33)
[2023-11-29] MEDS: Ceftriaxone 1 GM/50 ML BAG IV ×2 (15:18→21:02)
--- NOTE | 2023-11-29 15:50 | HP.PCM.HOS_ITS ---
HPI - General General Date of Admission: 11/29/23 Date of Service: 11/29/23 Chief Complaint: Falls HPI Narrative JAMISON ADAIR, is a 78 M who presents with falls. Over the past 5 days, patient has been falling and unsteady. Yesterday he fell and hit his head where it bled. Sought attention today. He was noted to have a white count of 12.2, sodium 124 and urinalysis concerning for UTI.He was also noted to have large amount of urine in his bladder and a Rivera catheter was placed in the emergency room. He received IV fluids as well as ceftriaxone. He and his both state that he was not following before and recently, with these falls, they have taken away his car keys. [facility] Medical History (Updated 11/29/23 @ 16:[address] Tono Colindres, DO) Rheumatoid arthritis History of spleen injury Cochlear implant in place Home Medications ?Medication ?Instructions ?Recorded ?Last Taken ?Type alprazolam 2 mg tablet 2 mg PO TID PRN PRN Anxiety 04/17/20 Unknown History diphenoxylate-atropine 2.5 1 ea PO PRN PRN bowels 04/17/20 Unknown History mg-0.025 mg tablet ferrous sulfate, dried 159 mg (45 130 mg PO DAILY anemia 04/17/20 Unknown History mg iron) tablet,extended release folic acid 1 mg tablet 2 mg PO DAILY supplement 04/17/20 Unknown History melatonin 5 mg tablet 10 mg PO QHS sleep 04/17/20 Unknown History methotrexate sodium 2.5 mg tablet 8 tab PO FR ra 04/17/20 Unknown History prednisone 10 mg tablet 10 mg PO DAILY ra 04/17/20 Unknown History tramadol 50 mg tablet 50 mg PO TID PRN PRN pain 04/17/20 Unknown History ciprofloxacin HCl 500 mg tablet 500 mg PO BID #14 tabs 04/24/20 Unknown Rx Allergy/AdvReac Type Severity Reaction Status Date / Time hydrocodone (From Vicodin) Allergy Swelling Verified 11/29/23 11:51 tramadol AdvReac Intermediate Other Verified 11/29/23 11:51 Family History no significant family his no significant family history Surgical History (Updated 11/29/23 @ 11:50 by Ca Rivera) S/P TURP Social History Smoking Status: Former smoker ROS ROS Narrative Her hearing at baseline and wears a cochlear implant. Was not tolerating finasteride which gave him shakes nor tamsulosin. Has been seeing Dr. Davey?o. All review of systems were negative except as mentioned above in the history of present illness and the other review of systems. Vital Signs Vital Signs Vital Signs: 11/29/23 11:35 11/29/23 11:43 11/29/23 14:02 Temperature 37.1 C 36.4 C L Temperature Source Temporal Oral Pulse Rate 84 80 Respiratory Rate 16 16 Respiratory Effort Normal Respiratory Depth Normal Respiratory Pattern Normal Blood Pressure 137/75 H 112/65 Blood Pressure Mean 95 80 Pulse Ox 98 94 Oxygen Delivery Method Room Air Room Air Room Air Weight Weight: 70.8 kg Body Mass Index (BMI) 22.4 Physical Exam Narrative - Physical Exam General: Alert, Oriented x3, Cooperative HEENT: Atraumatic, PERRLA, EOMI, Normocephalic. Cochlear implant on the left. Oral: Dry mucous mucosa. Dark stanton coating over his tongue., No Gingival or Mucosal Lesions/ Ulcerations Neck: Supple, No JVD, Negative Carotid Bruits Lungs: Clear to auscultation, Normal air movement Cardiovascular: Regular rate, Normal S1, Normal S2, No murmurs Abdomen: Bowel Sounds Present, Soft, Non Tender, Non-Distended, No Hepato- splenomegaly Extremities: No clubbing, No cyanosis, No edema, Capillary Refill Less than 3 Seconds Skin: No rashes, No breakdown Musculoskeletal: No Tenderness to Palpation of Joints or Extremities Neurological: Neuro grossly intact Psych/Mental Status: Normal Affect, Appropriate Results Lab / Micro Data Attestation: I reviewed the patient's lab results. 11/29/23 12:33 11/29/23 12:33 Labs: Laboratory Results - last 24 hr 11/29/23 12:33: WBC 12.2 H, RBC 3.31 L, Hgb 10.3 L, Hct 29.6 L, MCV 89.4, MCH 31.1, MCHC 34.8, RDW Std Deviation 42.4, RDW Coeff of Emanuel 13.0, Plt Count 287, MPV 9.1, Immature Gran % (Auto) 2.200 H, Neut % (Auto) 82.4 H, Lymph % (Auto) 4.4 L, [place] % (Auto) 10.8 H, Eos % (Auto) 0.0, Baso % (Auto) 0.2, Absolute Neuts (auto) 10.0 H, Absolute Lymphs (auto) 0.53 L, Nucleated RBC % 0, Sodium 124 L, Potassium 3.7, Chloride 87 L, Carbon Dioxide 27.0, Anion Gap 10, BUN 11, Creatinine 0.87, Estim Creat Clear Calc 68.95, Est GFR (MDRD) Af Amer 109, Est GFR (MDRD) Non-Af 90, BUN/Creatinine Ratio 12.7, Glucose 109 H, Calcium 8.9, Troponin I High Sens 14, TSH 0.91 11/29/23 13:08: Urine Color Yellow, Urine Clarity Sl. Cloudy, Urine pH 6.0, Ur Specific [place] 1.015, Urine Protein 100 H, Urine Glucose (UA) Normal, Urine Ketones 15 H, Urine Occult Blood 250 H, Urine Nitrite Negative, Urine Bilirubin Negative, Urine Urobilinogen 1 H, Ur Leukocyte Esterase 100 H, Urine RBC 5-10 SEEN, Urine WBC 25-50 SEEN, Ur Squamous Epith Cells 0-5 SEEN, Urine Bacteria 2+, Urine Mucus 1+ Rhythm Strip Rhythm Strip: SVT Imaging Radiology Impression Brain CT 11/29/23 12:15 IMPRESSION: Chronic involutional changes of the brain. Electronically Signed: Nelson Rene MD at 14:08 EDT , Chest X-Ray 11/29/23 12:25 IMPRESSION: Hyperinflation. The lungs are clear. Blunting of the right costophrenic angle. Electronically Signed: Nelson Rene MD at 13:10 EDT , Assessment & Plan Assessment/Plan (1) Debility: (2) SVT (supraventricular tachycardia): (3) UTI (urinary tract infection): (4) Urinary retention: PLAN: Plan SVT * Personally reviewed the rhythm strips and patient was having episodes of SVT. While was in his room he was having frequent PACs with no SVT. May be reactive with underlying dehydration and urinary tract infection. * But will start him on metoprolol 50 mg twice daily. Check 2D echocardiogram. UTI * Urine culture performed in the emergency room and fall. * He had received ceftriaxone in the emergency room and will continue on the floor. Debility/falls * Likely due to to UTI and dehydration as patient looks clinically dry. * PT OT evaluate and treat. Unclear if patient will require additional therapy services once he is medically improved. Urinary retention * Patient has had a TURP in the past in 2019. Has not tolerated finasteride nor tamsulosin. * Would recommend discharging the patient with Rivera catheter and following up with Dr. Davey?o as outpatient Chronic conditions * Rheumatoid arthritis: Takes prednisone as well as methotrexate. Will continue the prednisone for now. No need for stress dose steroids at this time. Hold the methotrexate for the time being. Certainly complicates his treatment of infection and makes predispose to infections in the future. * Anxiety: Continue with alprazolam. Verified on [facility] and he does receive that. VTE prophylaxis with a low molecular weight heparin CODE STATUS: Addressed with the patient. Patient is full code. Case discussed with patient's at bedside. Charges/Coding Visit Charges Inpatient E&M: 80038 Init Hosp L3
--- NOTE | 2023-11-29 16:57 | ECHOD_ITS ---
Reason For Study: SVT Procedure This was a 2D Doppler, Color Flow transthoracic echocardiogram. Exam performed in department. Left Ventricle Normal LV size. Left ventricular systolic function is normal. The left ventricular ejection fraction is 55 %. Stage 1 diastolic dysfunction. No regional wall motion abnormalities noted. Right Ventricle Normal RV size. Normal systolic function. Tricuspid Valve Normal tricuspid valve. Mild to moderate (1-2+) tricuspid valve insufficiency. Pulmonary artery systolic pressure is 50 mmHg. Mild pulmonary hypertension. Aortic Valve Trisinus/trileaflet aortic valve. Pulmonic Valve Normal pulmonic valve. Great Vessels Normal aortic root. Pericardium/Pleural No pericardial effusion. MMode/2D Measurements & Calculations LVIDd: 4.6 cm IVSd: 1.1 cm LVOT diam: 2.0 cm LVIDs: 3.6 cm LVPWd: 1.2 cm LVOT area: 3.1 cm2 RVDd: 3.8 cm FS: 22.0 % LAV(MOD-bp): 51.6 ml SV(MOD-sp4): 53.9 ml LVAd ap4: 29.1 cm2 LAV(MOD-bp) Indexed: 27.4 ml/m2 LVLd ap4: 7.9 cm LAV(MOD-sp2): 59.8 ml EDV(MOD-sp4): 89.0 ml LAV(MOD-sp4): 41.0 ml EDV(sp4-el): 91.2 ml LVAs ap4: 16.7 cm2 LVLs ap4: 6.9 cm ESV(MOD-sp4): 35.1 ml ESV(sp4-el): 34.1 ml EF(MOD-sp4): 60.6 % EF(sp4-el): 62.6 % SV(sp4-el): 57.1 ml LA dimension(2D): 3.4 cm LA A4 area: 17.9 cm2 TAPSE: 2.0 cm RA A4 area: 18.2 cm2 Time Measurements MV dec time: 0.20 sec Doppler Measurements & Calculations MV E max reji: 55.5 cm/sec Lat Peak E' Reji: 14.8 cm/sec Med Peak E' Reji: 10.7 cm/sec MV A max reji: 83.3 cm/sec E/E' lat: 3.7 E/E' med: 5.2 MV E/A: 0.67 MV V2 max: 106.3 cm/sec Ao V2 max: 181.6 cm/sec MV max P.5 mmHg MV dec slope: 363.4 cm/sec2 Ao max P.3 mmHg MV V2 mean: 56.0 cm/sec Ao V2 mean: 111.8 cm/sec MV mean P.6 mmHg Ao mean P.1 mmHg MV V2 VTI: 35.2 cm Ao V2 VTI: 34.0 cm AV (velocity ratio): 0.81 MVA(VTI): 2.4 cm2 GANESH(I,D): 2.5 cm2 GANESH(V,D): 2.3 cm2 LV V1 max: 136.9 cm/sec SV(LVOT): 85.6 ml TR max reji: 339.7 cm/sec LV V1 max P.5 mmHg TR max P.2 mmHg LV V1 mean P.1 mmHg LV V1 mean: 94.0 cm/sec LV V1 VTI: 27.7 cm ECHO/Echo Complete Interpretation Summary Normal LV size. Left ventricular systolic function is normal. The left ventricular ejection fraction is 55 %. Stage 1 diastolic dysfunction. Pulmonary artery systolic pressure is 50 mmHg. Mild pulmonary hypertension. Ordering Physician: Tono Colindres Referring Physician: FAYE GUIDO Performed By: Sandy Tierney and Student
[2023-11-29] MEDS: MELATONIN 10 MG TABLET PO (21:02)
[2023-11-29] MEDS: Metoprolol Tartrate 50 MG Tablet PO (21:02)
[2023-11-30] VITALS (8 sets, daily range): BP systolic 90–114; BP diastolic 58–63; PULSE 63–85; RESP 15–18; TEMP 36.4–37; O2SAT 93–98
[2023-11-30 06:14] LABS: Basophil# 0.01 X10^3/uL; Basophil% 0.1 % (0-1); Eosinophil# 0.02 X10^3/uL; Eosinophils% 0.2 % (0-5); Hematocrit 26.7 % (40-54); Hemoglobin 9.2 g/dL (13.0-16.5); Lymphocyte % 5.1 % (19-41); Mean Corp Hgb Conc 34.5 g/dL (32-36); Mean Corpuscular Hgb 30.7 pg (27.0-32.0); Mean Platelet Vol. 9.1 fl (6.2-12.0); Monocyte# 1.04 X10^3/uL; Monocyte% 10.7 % (0-10); NRBC Flagged by Analyzer 0 % (0-5); Neutrophil # 8.03 X10^3/uL (2.7-7.7); Neutrophil % 82.5 % (47-70); POSITIVE DIFFERENTIAL YES; Platelet Count 261 K/mm3 (150-450); RBC Distribution Width CV 13.1 % (11.6-14.6); RBC Distribution Width SD 42.7 fl (35.1-43.9); White Blood Count 9.7 K/mm3 (4.4-11.0)
[2023-11-30 06:39] LABS: Anion Gap 7 (5-15); BUN 8 mg/dL (7-18); BUN/Creat Ratio 11.6 RATIO (10-20); Calcium,Total 7.9 mg/dL (8.5-10.1); Chloride 92 mmol/L (98-107); Creatinine, Serum 0.69 mg/dL (0.70-1.30); EST Glomerular Filtration Rate 117 mL/min (>60); Est Glom Filt Rate - Afr Amer 142 mL/min (>60); Estimated Creatinine Clearance 71.59 ml/min; Glucose 111 mg/dL (74-106); Potassium 3.4 mmol/L (3.5-5.1); Sodium Level 124 mmol/L (136-145)
[2023-11-30] MEDS: predniSONE 10 MG Tablet PO (08:19)
[2023-11-30] MEDS: Metoprolol Tartrate 50 MG Tablet PO (08:19)
[2023-11-30] MEDS: Folic Acid 1 MG Tablet 2 MG PO (08:19)
[2023-11-30] MEDS: Enoxaparin 40 MG/0.4 ML Syringe SC (08:19)
[2023-11-30] MEDS: Ferrous Sulfate 325 MG Tablet PO (08:19)
[2023-11-30] MEDS: Ceftriaxone 1 GM/50 ML BAG IV ×2 (08:23→21:36)
--- NOTE | 2023-11-30 10:40 | CASEMGMT ---
RN CM Face to Face with patient for initial transition planning/care coordination assessment. RN CM introduced self and role at [facility]. Patient sitting in chair, alert and oriented, at bedside. Patient willing to participate in assessment and is able to answer all questions appropriately. Care providers, pharmacy, and demographics verified. PCP: Corrine Specialists: JUVENAL Zaldivar Pharmacy: [facility] Benef[facility]: yes Living Will/HPOA: yes, Jennifer Brito LNOK: Living Arrangements: Patient lives with in a bi-level home. Patient states he was independent at home and able to ambulate stairs. Transportation: self, DME/HHC: Patient denies DME in the home, will monitor for walker at discharge. No previous HHC or SNF Patient wishes to discharge home, discuss HHC vs Outpatient therapy, will monitor progress with therapy. Patient states he has no further needs or concerns at this time. CM to follow for discharge planning needs that may arise. Disposition Plan: TBD, will monitor progress with therapy. Emily VENTURA, RN, CM
[2023-11-30] MEDS: Acetaminophen 325 MG Tablet 650 MG PO (10:42)
--- NOTE | 2023-11-30 11:51 | CASEMGMT ---
Discharge Planning A list of?SNF providers including quality and resource use data and consistent with the patient's preferred geographic region, medical needs, and insurance network was created in [employer] Guide.? This list was provided to the RN ELIZABETH Rodriguez, Discharge Planning Asst.
--- NOTE | 2023-11-30 14:01 | CASEMGMT ---
JOSE JOHNSON in to discuss progress with therapy with patient. Therapy recommending SNF as patient required min assist x1 for 40 feet. JOSE JOHNSON provided SNF list to patient. Patient states he prefers TCU and would like referral sent. Patient had no further questions or concerns. JOSE JOHNSON updated SW regarding request for TCU.
--- NOTE | 2023-11-30 15:42 | CASEMGMT ---
RN ELIZABETH informed SW that patient would like to go to TCU at discharge. SW made a referral and TCU can take patient. SW spoke with patient and his . Introduced self and role at [facility]. SW let both of them know that TCU can take patient. SW explained that physician was thinking of possible discharge tomorrow. SW explained patient will be able to wear regular clothes while on TCU. Both thanked SW for the update. Plan: d/c to [facility] TCU under skilled level of care. Kelly LEONARDO
--- NOTE | 2023-11-30 16:47 | PN.HOSP_ITS ---
Reason for Visit Reason for Visit: Diagnoses Supraventricular tachycardia, unspecified (11/29/23) Urinary tract infection, site not specified (11/29/23) Retention of urine, unspecified (11/29/23) Other malaise (11/29/23) Subjective Subjective Patient was seen and examined today, he is extremely hard to communicate with due to his hearing loss. Patient's sodium today was 124, it appears that the patient has a chronic history of hyponatremia. Patient will need to go to a nursing home facility when discharged from the hospital for inpatient rehab services. Patient has been in normal sinus rhythm. Objective Data Objective Data Vital Signs: Vital Signs Temp Pulse Resp BP Pulse Ox O2 Del Method 97.9 F 64 16 90/63 98 Room Air 11/30/23 14:28 11/30/23 14:28 11/30/23 14:28 11/30/23 14:28 11/30/23 14:28 11/30/23 14:28 Oxygen Delivery Method Room Air Weight: 67.6 kg Body Mass Index (BMI) 21.4 Intake & Output: Intake and Output for Last 24 Hours 11/28/23 11/29/23 11/30/23 23:59 23:59 23:59 Intake Total 555 / 555 1350 / 1350 Output Total 610 / 610 600 / 600 Balance -55 / -55 750 / 750 Lab / Micro Data 11/30/23 06:00 11/30/23 06:00 Labs: Laboratory Results - last 24 hr 11/30/23 06:00: WBC 9.7, RBC 3.00 L, Hgb 9.2 L, Hct 26.7 L, MCV 89.0, MCH 30.7, MCHC 34.5, RDW Std Deviation 42.7, RDW Coeff of Emanuel 13.1, Plt Count 261, MPV 9.1, Immature Gran % (Auto) 1.400 H, Neut % (Auto) 82.5 H, Lymph % (Auto) 5.1 L, Harvey % (Auto) 10.7 H, Eos % (Auto) 0.2, Baso % (Auto) 0.1, Absolute Neuts (auto) 8.0 H, Absolute Lymphs (auto) 0.50 L, Nucleated RBC % 0, Sodium 124 L, Potassium 3.4 L, Chloride 92 L, Carbon Dioxide 25.0, Anion Gap 7, BUN 8, Creatinine 0.69 L , Estim Creat Clear Calc 71.59, Est GFR (MDRD) Af Amer 142, Est GFR (MDRD) Non- Af 117, BUN/Creatinine Ratio 11.6, Glucose 111 H, Calcium 7.9 L Micro: Microbiology 11/29/23 14:05 Urine Catheter - Catheter Urine Culture - Preliminary Gram negative fabian 11/29/23 14:05 Urine, Clean Catch Urine Culture - Preliminary Gram negative fabian Radiography Diagnostic Testing: Radiology Impression Echocardiogram 11/29/23 16:57 Interpretation Summary Normal LV size. Left ventricular systolic function is normal. The left ventricular ejection fraction is 55 %. Stage 1 diastolic dysfunction. Pulmonary artery systolic pressure is 50 mmHg. Mild pulmonary hypertension. Ordering Physician: Tono Colindres Referring Physician: FAYE GUIDO Performed By: Sandy Tierney and Student Rhythm Strip Rhythm Strip: SVT Physical Exam Const alert and no apparent distress Constitutional Narrative: Patient appears elderly and frail, extremely hard of hearing-difficult to communicate with General Appearance: cooperative and well developed Orientation / Consciousness: awake HEENT normocephalic, head/scalp atraumatic and moist oral mucous membranes Eyes PERRL, EOMs intact bilaterally and conjunctivae normal Neck supple, no JVD, thyroid normal and no carotid bruits General: trachea midline Resp normal respiratory effort, no retractions, no use of accessory muscles and clear to auscultation bilaterally Auscultation: Negative for rales, rhonchi or wheezes Cardio regular rate, regular rhythm, S1 normal heart sound, S2 normal heart sound, no murmurs, no rub and no gallops GI normal to inspection, nondistended, normoactive bowel sounds, soft to palpation, non-tender and non-distended Extremity no clubbing, cyanosis or edema Skin no rashes or lesions noted General Skin Exam: no breakdown Neuro CN's II-XII intact bilaterally Sensorium / Orientation: awake and alert Psych Psych Narrative: Patient has flat affect Assessment & Plan Assessment/Plan (1) UTI (urinary tract infection): PLAN: Plan 1. Acute cystitis-patient will remain on Rocephin, labs will be monitored as necessary #2 acute generalized debility-patient is being seen by PT and OT, he will need to go to a nursing home facility for inpatient rehab services at the time of discharge from the hospital #3 hyponatremia-etiology unclear at this point, BMP will be rechecked, patient will be placed on IV normal saline at 75 an hour #4 urinary retention-possibly secondary to BPH, due to the patient's low blood pressure, he will not be able to take Cardura, continue Rivera catheter Total clinical time spent by myself addressing the patient's medical issues, reviewing all of his data, and collaborating with patient's care team: 35 minutes Charges/Coding Visit Charges Inpatient E&M: 07175 Subs Hosp L2
[2023-11-30] MEDS: Ensure Plus High Protein 120 ML LIQUID PO (16:54)
[2023-11-30] MEDS: 0.9% Normal Saline (1000mL) 1,000 ML 75 ML IV (18:33)
[2023-11-30] MEDS: MELATONIN 10 MG TABLET PO (21:55)
[2023-12-01 04:22] VITALS: BP 100/62; PULSE 60; RESP 16; TEMP 36.8; O2SAT 92
[2023-12-01] MEDS: 0.9% Normal Saline (1000mL) 1,000 ML 75 ML IV (06:32)
[2023-12-01 07:03] LABS: Anion Gap 8 (5-15); BUN 11 mg/dL (7-18); BUN/Creat Ratio 16.4 RATIO (10-20); Calcium,Total 8.5 mg/dL (8.5-10.1); Chloride 94 mmol/L (98-107); Creatinine, Serum 0.67 mg/dL (0.70-1.30); EST Glomerular Filtration Rate 121 mL/min (>60); Est Glom Filt Rate - Afr Amer 147 mL/min (>60); Estimated Creatinine Clearance 71.59 ml/min; Glucose 118 mg/dL (74-106); Potassium 3.1 mmol/L (3.5-5.1); Sodium Level 128 mmol/L (136-145)
--- NOTE | 2023-12-01 08:45 | CASEMGMT ---
CAROL received a call from [facility] and patient was approved. Auth number is [id number]. CAROL notified physician and he will send patient today. CAROL notified Marisol patient will come today. Plan: d/c to [facility] under skilled level of care. Kelly LEONARDO
[2023-12-01 09:20] VITALS: BP 111/83; PULSE 82; RESP 18; TEMP 36.7; O2SAT 95
[2023-12-01 09:23] VITALS: BP 111/83; PULSE 82; RESP 18; TEMP 36.7; O2SAT 95
[2023-12-01] MEDS: Ferrous Sulfate 325 MG Tablet PO (09:25)
[2023-12-01] MEDS: Potassium Chloride Oral Tablet 20 MEQ 40 MEQ PO (09:25)
[2023-12-01] MEDS: Folic Acid 1 MG Tablet 2 MG PO (09:25)
[2023-12-01] MEDS: Ceftriaxone 1 GM/50 ML BAG IV (09:25)
[2023-12-01] MEDS: Ensure Plus High Protein 120 ML LIQUID PO ×2 (09:25→11:58)
[2023-12-01 09:26] VITALS: BP 111/83; PULSE 82
[2023-12-01] MEDS: Enoxaparin 40 MG/0.4 ML Syringe SC (09:26)
[2023-12-01] MEDS: Metoprolol Tartrate 50 MG Tablet PO (09:26)
[2023-12-01] MEDS: predniSONE 10 MG Tablet PO (09:26)
[2023-12-01] MEDS: Acetaminophen 325 MG Tablet 650 MG PO (11:55)
--- NOTE | 2023-12-01 12:37 | PCM.TXEXTCAR ---
Diet Diet Order/Speech Therapy: 11/29/23 16:57 Diet: Regular - General Food consistency:: Regular Liquid Consistency:: Regular/Thin Is pt able to select menu?: Yes Routine Orders/Code Status Routine Lab Work: BMP (in one week) Code Status: Full Code Wound(s) Right Elbow: Wound Type: Skin Tear Left FA: Wound Type: Skin Tear Right side of head: Wound Type: Laceration Therapies Weight Bearing: Full weight bearing Physical Therapy: Eval and Treat Occupational Therapy: Eval and Treat Problem/Diagnosis (1) UTI (urinary tract infection): Status: Acute Code(s): N39.0 - Urinary tract infection, site not specified Plan 1. Acute cystitis-patient will remain on Rocephin, labs will be monitored as necessary #2 acute generalized debility-patient is being seen by PT and OT, he will need to go to a shelter facility for inpatient rehab services at the time of discharge from the hospital #3 hyponatremia-etiology unclear at this point, BMP will be rechecked, patient will be placed on IV normal saline at 75 an hour #4 urinary retention-possibly secondary to BPH Total clinical time spent by myself addressing the patient's medical issues, reviewing all of his data, and collaborating with patient's care team: 35 minutes Allergies/Procedures Done in Hospital Allergies hydrocodone (From Vicodin) Allergy (Verified 11/29/23 11:51) Swelling tramadol Adverse Reaction (Intermediate, Verified 11/29/23 11:51) Other WATER RETENTION Procedures: None Type of Care/Length of Stay Estimated LOS: Convalescent Care Less Than 30 days Type of Care Needed: Skilled Rehab Potential: Good Prognosis: Good Additional Orders/Day of Discharge Additional Orders: Fluid restriction 1800 ml/day H&P will serve as current which was dated: 11/29/23 Day of Discharge: 12/01/23 Dietary and Speech Recommendations Dietitian Recommendations/Changes: Continue regular diet to optimize oral intakes. RD will order 120mL ensure plus high protein TID with medpass to supplement PO intakes. Discharge Plan Admission Admit Date/Time: 11/29/23 15:50 Primary Reason for Your Visit: weakness Attending Provider: Willy Guerra Primary Care Provider: Festus Castle Consulting Providers: Tono Colindres Instructions Additional Instructions / Restrictions: maintain fernandez catheter appoint with urology within 2-3 weeks Discharge Orders/Prescriptions Prescriptions: New alprazolam 0.5 mg Tablet 2 mg PO TID PRN PRN (Reason: Anxiety) Qty: 9 0RF melatonin 10 mg Tablet, Sublingual 10 mg PO QHS Qty: 0 0RF Ensure Plus High Protein 0.08 gram-1.5 kcal/mL Liquid 120 ml PO TIDCM Qty: 0 0RF metoprolol tartrate 50 mg Tablet 50 mg PO BID Qty: 0 0RF Artificial Tears([id number]) 1-0.2-0.2 % Drops 1 - 2 drp EACH EYE Q2H PRN (Reason: DRY EYES) Qty: 0 0RF tramadol 50 mg tablet 50 mg PO TID PRN (Reason: pain) Qty: 10 0RF cephalexin 250 mg tablet 250 mg PO TID Qty: 16 0RF Rx Instructions: one three times a day for 16 doses, then stop-first dose tonite doxazosin [Cardura] 2 mg tablet 2 mg PO QHS Qty: 1 0RF methotrexate sodium 2.5 mg tablet 17.5 mg PO QWEEK Qty: 1 0RF Rx Instructions: give every Monday starting 12/08/23 Continued methotrexate sodium 2.5 MG tablet 8 tab PO FR Patient Comments: Only takes on Fridays folic acid 1 MG tablet 2 mg PO DAILY ferrous sulfate, dried 159 MG tablet extended release 130 mg PO DAILY cevimeline 30 mg capsule 1 cap PO TID cyclosporine 0.05 % dropperette 1 drp ophthalmic (eye) BID Discontinued prednisone 10 MG tablet 10 mg PO DAILY Patient Comments: alternate with 2 tabs daily tramadol 50 MG tablet 50 mg PO TID PRN PRN (Reason: pain) alprazolam 2 MG tablet 2 mg PO TID PRN PRN (Reason: Anxiety) Referrals / Follow Up: Micheal Baltazar MD [Med Staff - Active Staff] - See Referral Note (in 2-3 weeks) Festus Castle DO [Primary Care Provider] - Disposition Disposition (needs filled in before D/C Order can be placed): Retirement Facility
--- NOTE | 2023-12-01 15:08 | DS.PCM_ITS ---
Providers Date of Admission: 11/29/23 Date of Discharge: 12/01/23 Primary Care Physician: Dr. Festus Castle DO Reason For Visit: FALLS. SVT. UTI Diagnosis Discharge Diagnosis (1) UTI (urinary tract infection): Status: Acute Code(s): N39.0 - Urinary tract infection, site not specified Plan 1. Bacteriuria-cystitis was ruled out #2 acute generalized debility-patient is being seen by PT and OT, he will need to go to a residential facility for inpatient rehab services at the time of discharge from the hospital #3 hyponatremia-etiology unclear at this point, BMP will be rechecked, patient will be placed on IV normal saline at 75 an hour #4 urinary retention-possibly secondary to BPH #5 severe chronic hearing loss Total clinical time spent by myself addressing the patient's medical issues, reviewing all of his data, and collaborating with patient's care team: 35 minutes Medications at Discharge Home Medications ferrous sulfate, dried 159 mg (45 mg iron) tablet,extended release 130 mg PO DAILY anemia 04/17/20 folic acid 1 mg tablet 2 mg PO DAILY supplement 04/17/20 methotrexate sodium 2.5 mg tablet 8 tab PO FR ra 04/17/20 cevimeline 30 mg capsule 1 cap PO TID Dry Mouth 11/29/23 cyclosporine 0.05 % eye drops in a dropperette 1 drp ophthalmic (eye) BID Dry eyes 11/29/23 alprazolam 0.5 mg tablet 2 mg (4 x 0.5 mg) PO TID PRN PRN Anxiety #9 tabs 12/01/23 doxazosin 2 mg tablet (Cardura) 2 mg PO QHS BPH #1 TAB 12/01/23 food supplemt, lactose-reduced 0.08 gram-1.5 kcal/mL oral liquid (Ensure Plus High Protein) 120 ml PO TIDCM supplement #0 mL 12/01/23 melatonin 10 mg sublingual tablet 10 mg PO QHS sleep #0 tabs 12/01/23 methotrexate sodium 2.5 mg tablet 17.5 mg (7 x 2.5 mg) PO QWEEK ? #1 TAB 12/01/23 metoprolol tartrate 50 mg tablet 50 mg PO BID BP #0 tabs 12/01/23 peg [id number] 1 %-0.2 %-0.2 % eye drops (Artificial Tears ([id number])) 1 - 2 drp EACH EYE Q2H PRN DRY EYES #0 mL 12/01/23 tramadol 50 mg tablet 50 mg PO TID PRN pain #10 tabs 12/01/23 Hospital Course Operations None Procedures None Summary of Care Provided Minutes Spent on Discharge: 31 Hospital Course: 78-year-old white male was seen in the emergency room at [facility] having had frequent falls at home over the past 10 days. Patient complained of generalized weakness. Patient's CBC showed an elevated white count of 12.2, hemoglobin was 10.3, patient's sodium was low at 124, urinalysis showed 25-50 WBCs, +2 bacteria, urine leukocyte Estrace was 100, and RBCs was 5- 10. CT of the brain showed chronic involutional changes, chest x-ray showed hyperinflation with clear lungs. Patient was admitted to PCU and placed on IV antibiotics and seen by PT and OT, he was felt to be appropriate for admission to a residential facility for inpatient rehab services. Patient's urine culture came back showing small numbers of bacteria-Burkholderia gladioli. This was not felt to be significant and it was felt that the patient had bacteriuria. On 12/01/2023, patient was seen and examined:alert and no apparent distress Constitutional Narrative: Patient appears elderly and frail, extremely hard of hearing-difficult to communicate with General Appearance: cooperative and well developed Orientation / Consciousness: awake HEENT normocephalic, head/scalp atraumatic and moist oral mucous membranes Eyes PERRL, EOMs intact bilaterally and conjunctivae normal Neck supple, no JVD, thyroid normal and no carotid bruits General: trachea midline Resp normal respiratory effort, no retractions, no use of accessory muscles and clear to auscultation bilaterally Auscultation: Negative for rales, rhonchi or wheezes Cardio regular rate, regular rhythm, S1 normal heart sound, S2 normal heart sound, no murmurs, no rub and no gallops GI normal to inspection, nondistended, normoactive bowel sounds, soft to palpation, non-tender and non-distended Extremity no clubbing, cyanosis or edema Skin no rashes or lesions noted General Skin Exam: no breakdown Neuro CN's II-XII intact bilaterally Sensorium / Orientation: awake and alert Psych Psych Narrative: Patient has flat affect Patient was felt to be stable for discharge to TCU for inpatient rehab services on 12/01/2023. Weight / BMI Weight Weight: 67.6 kg Body Mass Index (BMI) 21.4 ABG / Lab / Microbiology Data 11/30/23 06:00 12/01/23 05:46 Laboratory: Laboratory Results - last 24 hr 12/01/23 05:46: Sodium 128 L, Potassium 3.1 L, Chloride 94 L, Carbon Dioxide 26.0, Anion Gap 8, BUN 11, Creatinine 0.67 L, Estim Creat Clear Calc 71.59, Est GFR (MDRD) Af Amer 147, Est GFR (MDRD) Non-Af 121, BUN/Creatinine Ratio 16.4, G lucose 118 H, Calcium 8.5 Microbiology: Microbiology 11/29/23 14:05 Urine Catheter - Catheter Urine Culture - Final Burkholderia gladioli 11/29/23 14:05 Urine, Clean Catch Urine Culture - Final Burkholderia gladioli Meaningful Use Info Meaningful Use Meaningful Use Diagnoses (Choose all that apply): None applicable Ischemic Stroke Statin Dosing Therapy Reference: STATIN DOSE THERAPY REFERENCE: * Patients > 75 years receive moderate or high dose statin therapy. * Patients 75 years or YOUNGER should receive HIGH intensity statin dose unless contraindicated. You will be required to document reason for non-treatment if statin daily dose does not meet guidelines. HIGH DOSE STATIN THERAPY DAILY Atorvastatin > than or = to 40 mg Rosuvastatin > than or = to 20 mg Amlodipine + Atorvastatin > than or = to 2.5/40 mg Ezetimibe + Simvastatin 10/80 mg Simvastatin 80mg Discharge Plan Admission Admit Date/Time: 11/29/23 15:50 Primary Reason for Your Visit: weakness Attending Provider: Willy Guerra Primary Care Provider: Festus Castle Consulting Providers: Tono Colindres Instructions Additional Instructions / Restrictions: maintain fernandez catheter appoint with urology within 2-3 weeks Discharge Orders/Prescriptions Prescriptions: New alprazolam 0.5 mg Tablet 2 mg PO TID PRN PRN (Reason: Anxiety) Qty: 9 0RF melatonin 10 mg Tablet, Sublingual 10 mg PO QHS Qty: 0 0RF Ensure Plus High Protein 0.08 gram-1.5 kcal/mL Liquid 120 ml PO TIDCM Qty: 0 0RF metoprolol tartrate 50 mg Tablet 50 mg PO BID Qty: 0 0RF Artificial Tears(mu-[id number]) 1-0.2-0.2 % Drops 1 - 2 drp EACH EYE Q2H PRN (Reason: DRY EYES) Qty: 0 0RF tramadol 50 mg tablet 50 mg PO TID PRN (Reason: pain) Qty: 10 0RF doxazosin [Cardura] 2 mg tablet 2 mg PO QHS Qty: 1 0RF methotrexate sodium 2.5 mg tablet 17.5 mg PO QWEEK Qty: 1 0RF Rx Instructions: give every Monday starting 12/08/23 Continued methotrexate sodium 2.5 MG tablet 8 tab PO FR Patient Comments: Only takes on Fridays folic acid 1 MG tablet 2 mg PO DAILY ferrous sulfate, dried 159 MG tablet extended release 130 mg PO DAILY cevimeline 30 mg capsule 1 cap PO TID cyclosporine 0.05 % dropperette 1 drp ophthalmic (eye) BID Discontinued prednisone 10 MG tablet 10 mg PO DAILY Patient Comments: alternate with 2 tabs daily tramadol 50 MG tablet 50 mg PO TID PRN PRN (Reason: pain) alprazolam 2 MG tablet 2 mg PO TID PRN PRN (Reason: Anxiety) Referrals / Follow Up: Micheal Baltazar MD [Med Staff - Active Staff] - See Referral Note (in 2-3 weeks) Festus Castle DO [Primary Care Provider] - Disposition Disposition (needs filled in before D/C Order can be placed): Longterm Facility Charges/Coding Visit Charges Inpatient E&M: 82571 Disch Hosp >30min
[2023-12-01 15:32] VITALS: BP 92/67; PULSE 68; RESP 18; TEMP 36.7; O2SAT 98
[2023-12-01] MEDS: Methotrexate 2.5 MG Tablet 17.5 MG PO (15:48)
--- NOTE | 2023-12-01 16:18 | NURSING ---
Called report to Renata GARCIA in TCU
== END 2023-12-01 16:30 | disposition skilled nursing facility (03) | DRG 948 ==
LOC: ED 15:12 → PCU 16:09
PROVIDERS: Emergency Provider Emergency Medicine; PCP Preventive Medicine Occupational Medicine; Visit Provider Internal Medicine
DX: R53.81 Other malaise (principal); E87.1 Hypo-osmolality and hyponatremia; I47.10 Supraventricular tachycardia, unspecified; M06.9 Rheumatoid arthritis, unspecified; F41.9 Anxiety disorder, unspecified; R82.71 Bacteriuria; N40.1 Benign prostatic hyperplasia with lower urinary tract symptoms; R33.8 Other retention of urine; R29.6 Repeated falls; H91.90 Unspecified hearing loss, unspecified ear; Z79.52 Long term (current) use of systemic steroids; Z79.899 Other long term (current) drug therapy; Z87.891 Personal history of nicotine dependence
CPT/HCPCS: 36415; 51702; 70450; 71045; 80048; 81001; 84443; 84484; 85025; 87077; 87086; 87088; 87186; 93005; 93306; 97162; 97166; 97530; 97535; 97802; 99285; J7030; A4216; J8610

== ENCOUNTER 2023-12-01 16:38 | Inpatient (IN) | payer MEDICARE, SELFPAY ==
[2023-12-01 17:01] VITALS: BP 105/64; PULSE 66; RESP 14; TEMP 36.2; O2SAT 98; BMI 22.7; BMI 22.8
[2023-12-01] MEDS: Ensure Plus High Protein 120 ML LIQUID PO (17:45)
[2023-12-01 19:49] VITALS: BP 106/62; PULSE 63
[2023-12-01 20:06] VITALS: BP 106/62; PULSE 63
[2023-12-01] MEDS: Metoprolol Tartrate 50 MG Tablet PO (20:06)
[2023-12-01] MEDS: Doxazosin 1 MG Tablet 2 MG PO (20:07)
[2023-12-01] MEDS: 0.9% Saline Lock 10 ML Syringe IV (20:26)
--- NOTE | 2023-12-01 22:31 | HP.PCM_ITS ---
HPI - General General Date of Admission: 12/01/23 Date of Service: 12/01/23 Chief Complaint: Here for rehabilitation. HPI Narrative 11/29/2023 JAMISON ADAIR, is a 78 Male who presents to [facility] ED with fall. Frequent falls, multiple falls last 10 days. Hit head right side last night, was bleeding. Very weak, Dr. Baltazar recently restarted Finasteride, Tamsulosin. Acute urinary incontinence. WBC 12.2, Hemoglobin 10.3, Sodium 124, Chloride 87. Urinalysis c/w UTI, Bladderscan > 700mL, c/w overflow incontinence. Fernandez catheter placed with 1200mL urine out. CT head okay, urine culture sent, Ceftriaxone 1gm iv for UTI. 11/29/2023 Admit [facility]. Metoprolol 50mg po bid for SVT. Ceftriaxone iv for UTI, urine culture pending. PT/OT Debility. Fernandez catheter, Dr. Baltazar outpatient for urinary retention. 11/29/2023 Echo LVSF normal. LVEF 55%. Stage 1 diastolic dysfunction. PASP 50mmHG. Mild pulmonary HTN. 11/30/2023 Sodium 124, chronic hyponatremia. PT/OT SNF. Ceftriaxone iv UTI. Normal saline 75cc/hour IV for hyponatremia. Fernandez catheter for urinary retention. 12/01/2023 Admit to TCU with debility, here for rehabilitation, strengthening, prior to discharge home with . [facility] Medical History (Updated 12/01/23 @ 22:[address] Gopal Mclaughlin MD) Rheumatoid arthritis History of spleen injury Cochlear implant in place Home Medications ?Medication ?Instructions ?Recorded ?Last Taken ?Type ferrous sulfate, dried 159 mg (45 130 mg PO DAILY anemia 04/17/20 11/29/23 History mg iron) tablet,extended release folic acid 1 mg tablet 2 mg PO DAILY supplement 04/17/20 11/29/23 History methotrexate sodium 2.5 mg tablet 8 tab PO FR ra 04/17/20 11/24/23 History cevimeline 30 mg capsule 1 cap PO TID Dry Mouth 11/29/23 11/29/23 History cyclosporine 0.05 % eye drops in a 1 drp ophthalmic (eye) BID Dry eyes 11/29/23 11/29/23 History dropperette alprazolam 0.5 mg tablet 2 mg (4 x 0.5 mg) PO TID PRN PRN 12/01/23 Unknown Rx Anxiety #9 tabs doxazosin 2 mg tablet (Cardura) 2 mg PO QHS BPH #1 TAB 12/01/23 Unknown Rx food supplemt, lactose-reduced 120 ml PO TIDCM supplement #0 mL 12/01/23 Unknown Rx 0.08 gram-1.5 kcal/mL oral liquid (Ensure Plus High Protein) melatonin 10 mg sublingual tablet 10 mg PO QHS sleep #0 tabs 12/01/23 Unknown Rx methotrexate sodium 2.5 mg tablet 17.5 mg (7 x 2.5 mg) PO QWEEK ? #1 12/01/23 Unknown Rx TAB metoprolol tartrate 50 mg tablet 50 mg PO BID BP #0 tabs 12/01/23 Unknown Rx peg [id number] 1 1 - 2 drp EACH EYE Q2H PRN DRY 12/01/23 Unknown Rx %-0.2 %-0.2 % eye drops EYES #0 mL (Artificial Tears ([id number])) tramadol 50 mg tablet 50 mg PO TID PRN pain #10 tabs 12/01/23 Unknown Rx Allergy/AdvReac Type Severity Reaction Status Date / Time hydrocodone (From Vicodin) Allergy Swelling Verified 11/29/23 11:51 tramadol AdvReac Intermediate Other Verified 11/29/23 11:51 Surgical History S/P TURP Social History (Updated 12/01/23 @ 22:[address] Gopal Mclaughlin MD) household members: spouse Smoking Status: Former smoker alcohol intake: never substance use type: does not use ROS Constitutional Constitutional: Reports fatigue, lethargy and weakness; Denies chills, fever(s) or weight gain ENT HEENT: Denies headache(s), nasal congestion or nasal discharge Cardiovascular Cardiovascular: Denies chest pain or palpitations Respiratory/Chest Respiratory/Chest: Denies cough, excessive phlegm production or shortness of breath with exertion Gastrointestinal Gastrointestinal: Denies abdominal pain, nausea or vomiting Genitourinary Genitourinary: Denies dysuria Musculoskeletal Musculoskeletal: Denies joint pain or joint swelling Integumentary Integumentary: Denies rash or wounds Neurologic Neurologic: Denies focal weakness, numbness or tingling Psychiatric Psychiatric: Denies anxiety, auditory hallucinations, depression, homicidal ideation or suicidal ideation Vital Signs Vital Signs Vital Signs: 12/01/23 17:01 12/01/23 17:01 12/01/23 19:49 Temperature 97.1 F L Temperature Source Temporal Pulse Rate 66 63 Pulse Rhythm Regular Pulse Strength Normal (2+) Respiratory Rate 14 Respiratory Effort Normal Non-Labored Respiratory Depth Normal Respiratory Pattern Normal Blood Pressure 105/64 106/62 Blood Pressure Mean 77 76 Blood Pressure Source Monitor Monitor Blood Pressure Position Semi-Fowlers Semi-Fowlers Blood Pressure Location Right Arm Right Arm Pulse Ox 98 98 Oxygen Delivery Method Room Air Room Air 12/01/23 20:06 Temperature Temperature Source Pulse Rate 63 Pulse Rhythm Pulse Strength Respiratory Rate Respiratory Effort Respiratory Depth Respiratory Pattern Blood Pressure 106/62 Blood Pressure Mean Blood Pressure Source Blood Pressure Position Blood Pressure Location Pulse Ox Oxygen Delivery Method Weight Weight: 72.03 kg Body Mass Index (BMI) 22.8 Physical Exam Const alert General Appearance: cooperative HEENT normocephalic Eyes PERRL and EOMs intact bilaterally Neck supple, no JVD and no carotid bruits Resp normal respiratory effort, normal air movement and clear to auscultation bilaterally Cardio regular rate and regular rhythm GI normal to inspection, nondistended, normoactive bowel sounds, non-tender and non-distended Bladder / Kidney Exam: catheter in place urethral Extremity normal capillary refill General Extremity: Negative for edema Skin no rashes or lesions noted General Skin Exam: no breakdown Psych affect normal Appearance: appropriate Assessment & Plan Assessment/Plan (1) Debility: (2) Fall: (3) Urinary retention: (4) BPH (benign prostatic hyperplasia): (5) UTI (urinary tract infection): (6) Hyponatremia: (7) SVT (supraventricular tachycardia): (8) Rheumatoid arthritis: (9) Anxiety: (10) Iron deficiency anemia: (11) Sjogren syndrome: PLAN: Plan 78 year old male with below past medical history hospitalized for weakness 2/2 UTI, urinary retention, complicated by hyponatremia, SVT, admitted to TCU with debility, here for rehabilitation, strengthening, prior to discharge home with . * Debility - PT/OT. * Dysphagia - ST. * Pain - Tylenol 1000mg q6 prn pain (1-3), Tramadol 50mg tid prn pain (4-10). * Bowel - senna/colace 1 tablet bid, Magnesium citrate 300ml daily prn. * Adult immunization - Administer pneumonia vaccine, covid vaccine, flu vaccine as appropriate. * DVT prophylaxis - Hold, anemia. 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 * BPH/urinary retention - Doxazosin 2mg qhs, indwelling fernandez catheter, follow up Dr. Baltazar outpatient. * Nutrition - Ensure Plus 120mL po tidcm. * Iron deficiency anemia - Ferrous sulfate 325mg daily. * Rheumatoid arthritis - MTX 17.5mg po qweek, Folic acid 2mg daily. * Insomnia - Melatonin 10mg qhs. * SVT - Metoprolol 50mg bid. * Dry Eyes - Artificial tears 1-2 gtt ou q2 prn.
[2023-12-02 06:52] LABS: Absolute Lymphocyte Count 0.75 X10^3/uL (0.83-4.51); Absolute Neutrophil Count 9.4 X10^3/uL (2.0-7.7); Basophil# 0.02 X10^3/uL; Basophil% 0.2 % (0-1); Eosinophil# 0.11 X10^3/uL; Hematocrit 26.8 % (40-54); Hemoglobin 9.2 g/dL (13.0-16.5); Lymphocyte # 0.75 X10^3/ul (0.83-4.51); Lymphocyte % 6.6 % (19-41); Mean Corp Hgb Conc 34.3 g/dL (32-36); Mean Corpuscular Volume 90.2 fL (80-94); Mean Platelet Vol. 9.1 fl (6.2-12.0); Monocyte# 0.92 X10^3/uL; Monocyte% 8.1 % (0-10); NRBC Flagged by Analyzer 0 % (0-5); Neutrophil # 9.36 X10^3/uL (2.7-7.7); Neutrophil % 82.4 % (47-70); Platelet Count 347 K/mm3 (150-450); RBC Distribution Width CV 13.2 % (11.6-14.6); RBC Distribution Width SD 43.8 fl (35.1-43.9); Red Blood Count 2.97 M/mm3 (4.6-6.2); White Blood Count 11.4 K/mm3 (4.4-11.0)
[2023-12-02 07:18] LABS: Anion Gap 8 (5-15); BUN 10 mg/dL (7-18); BUN/Creat Ratio 15.6 RATIO (10-20); Calcium,Total 8.4 mg/dL (8.5-10.1); Chloride 98 mmol/L (98-107); Creatinine, Serum 0.64 mg/dL (0.70-1.30); EST Glomerular Filtration Rate 128 mL/min (>60); Est Glom Filt Rate - Afr Amer 155 mL/min (>60); Estimated Creatinine Clearance 76.28 ml/min; Glucose 95 mg/dL (74-106); Potassium 3.7 mmol/L (3.5-5.1); Sodium Level 132 mmol/L (136-145)
[2023-12-02] MEDS: Folic Acid 1 MG Tablet 2 MG PO (09:00)
[2023-12-02] MEDS: Senna/Docusate Sodium 1 Tablet PO ×2 (09:00→21:25)
[2023-12-02] MEDS: Ferrous Sulfate 325 MG Tablet PO (09:00)
[2023-12-02] MEDS: Ensure Plus High Protein 120 ML LIQUID PO ×3 (09:00→17:54)
[2023-12-02 09:01] VITALS: PULSE 83
[2023-12-02] MEDS: Metoprolol Tartrate 50 MG Tablet PO ×2 (09:01→21:25)
[2023-12-02] MEDS: Tuberculin,Purif.prot.deriv. 50 TU/ML Vial 0.1 ML ID (09:36)
[2023-12-02 13:03] VITALS: BP 108/61; PULSE 83; RESP 16; TEMP 36.7; O2SAT 96
[2023-12-02] MEDS: CEVIMELINE HCL 30 MG CAPSULE PO ×2 (13:10→21:26)
--- NOTE | 2023-12-02 17:15 | NURSING ---
New orders from Dr. Mclaughlin to d/c melatonin per pt request and start cyclosporine eye drops b.i.d per pt. request.
[2023-12-02 21:25] VITALS: BP 105/64; PULSE 76
[2023-12-02] MEDS: CycloSPORINE Ophthalmic 1 DROP DROPERETTE 1 DRP EACH EYE (21:25)
[2023-12-02] MEDS: Doxazosin 1 MG Tablet 2 MG PO (21:26)
[2023-12-02] MEDS: 0.9% Saline Lock 10 ML Syringe IV (21:27)
[2023-12-02 21:30] VITALS: BP 105/64; PULSE 72; O2SAT 95
[2023-12-03] MEDS: CEVIMELINE HCL 30 MG CAPSULE PO ×3 (05:55→21:56)
[2023-12-03 08:31] VITALS: BP 134/71; PULSE 98; RESP 18; O2SAT 93
[2023-12-03 08:33] VITALS: PULSE 98
[2023-12-03] MEDS: Ferrous Sulfate 325 MG Tablet PO (08:33)
[2023-12-03] MEDS: Metoprolol Tartrate 50 MG Tablet PO ×2 (08:33→21:59)
[2023-12-03] MEDS: Ensure Plus High Protein 120 ML LIQUID PO ×3 (08:33→17:52)
[2023-12-03] MEDS: Folic Acid 1 MG Tablet 2 MG PO (08:33)
[2023-12-03] MEDS: Senna/Docusate Sodium 1 Tablet PO (08:34)
[2023-12-03] MEDS: CycloSPORINE Ophthalmic 1 DROP DROPERETTE 1 DRP EACH EYE ×2 (08:34→22:00)
[2023-12-03] MEDS: ALPRAZolam 0.5 MG Tablet 2 MG PO ×2 (08:49→17:56)
--- NOTE | 2023-12-03 12:16 | PHA.CONS_ITS ---
Documented by User: Joana Fall 12/03/23 12:31 TCU RX Drug Regimen Review Subjective/Objective Subjective/Objective: Subjective: TCU Admission. 78 YOM presented to the ER with a fall. Hospitalized for weakness 2/2 UTI, urinary retention, complicated by hyponatremia, SVT. Admitted to TCU with debility for strengthening and rehabilitation. Objective: Allergies hydrocodone (From Vicodin) Allergy (Verified 11/29/23 11:51) Swelling tramadol Adverse Reaction (Intermediate, Verified 11/29/23 11:51) Other WATER RETENTION Current Medications Generic Name Dose Route Start Last Admin Trade Name Freq PRN Reason Stop Dose Admin Acetaminophen 1,000 mg 12/01/23 22:49 Acetaminophen 500 Mg Tablet PO Q6H PRN PRN Pain Score 1-3 Alprazolam 2 mg 12/01/23 16:55 12/03/23 08:49 Alprazolam 0.5 Mg Tablet PO 2 mg TID PRN PRN Administration Anxiety Cevimeline HCl 30 mg 12/02/23 14:00 12/03/23 05:55 Cevimeline Hcl 30 Mg Capsule PO 30 mg TID UBALDO Administration Cyclosporine 1 drp 12/02/23 22:00 12/03/23 08:34 Cyclosporine Ophthalmic 1 Drop Droperette EACH EYE 1 drp BID UBALDO Administration Doxazosin Mesylate 2 mg 12/01/23 22:00 12/02/23 21:26 Doxazosin 1 Mg Tablet PO 2 mg QHS UBALDO Administration Ferrous Sulfate 325 mg 12/02/23 08:00 12/03/23 08:33 Ferrous Sulfate 325 Mg Tablet PO 325 mg DAILYCM UBALDO Administration Folic Acid 2 mg 12/02/23 08:00 12/03/23 08:33 Folic Acid 1 Mg Tablet PO 2 mg DAILYCM UBALDO Administration Magnesium Citrate 300 ml 12/01/23 22:49 Magnesium Citrate 300 Ml PO DAILY PRN Constipation Methotrexate 17.5 mg 12/08/23 10:00 Methotrexate 2.5 Mg Tablet PO Fr UBALDO Metoprolol Tartrate 50 mg 12/01/23 22:00 12/03/23 08:33 Metoprolol Tartrate 50 Mg Tablet PO 50 mg BID UBALDO Administration Protocol Nutritional Formula (Lactose Free) 120 ml 12/01/23 17:45 12/03/23 08:33 Ensure Plus High Protein 120 Ml Liquid PO 120 ml TIDCM UBALDO Administration Senna/Docusate Sodium 1 tablet 12/02/23 10:00 12/03/23 08:34 Senna/Docusate Sodium 1 Tablet PO 1 tablet BID UBALDO Administration Sodium Chloride 10 - 40 ml 12/01/23 17:07 12/02/23 21:27 0.9% Saline Lock 10 Ml Syringe IV 10 ml UD PRN Administration SALINE FLUSH Tramadol HCl 50 mg 12/01/23 22:45 Tramadol 50 Mg Tablet PO TID PRN PRN Pain Score 4-10 or Pre PT/OT Tuberculin PPD 0.1 ml 12/09/23 10:00 Tuberculin,Purif.Prot.Deriv. 50 Tu/Ml Vial ID 12/09/23 10:01 X1 ONE Problem List Sjogren syndrome (Acute) Iron deficiency anemia (Acute) Anxiety (Acute) Rheumatoid arthritis (Acute) Hyponatremia (Acute) BPH (benign prostatic hyperplasia) (Acute) Fall (Acute) Urinary retention (Acute) UTI (urinary tract infection) (Acute) SVT (supraventricular tachycardia) (Acute) Debility (Acute) Vital Signs Temp Pulse Resp BP Pulse Ox O2 Del Method 98.1 F 98 18 134/71 H 93 Room Air 12/02/23 13:03 12/03/23 08:33 12/03/23 08:31 12/03/23 08:31 12/03/23 08:31 12/03/23 08:31 Oxygen Delivery Method Room Air Weight: 72.03 kg Body Mass Index (BMI) 22.8 Sodium 132 mmol/L (136-145) L 12/02/23 06:44 Potassium 3.7 mmol/L (3.5-5.1) 12/02/23 06:44 Chloride 98 mmol/L (98-107) 12/02/23 06:44 Carbon Dioxide 26.0 mmol/L (21.0-32.0) 12/02/23 06:44 Anion Gap 8 (5-15) 12/02/23 06:44 BUN 10 mg/dL (7-18) 12/02/23 06:44 Creatinine 0.64 mg/dL (0.70-1.30) L 12/02/23 06:44 Est GFR (MDRD) Af Amer 155 mL/min (>60) 12/02/23 06:44 Est GFR (MDRD) Non-Af 128 mL/min (>60) 12/02/23 06:44 BUN/Creatinine Ratio 15.6 RATIO (10-20) 12/02/23 06:44 Glucose 95 mg/dL (74-106) 12/02/23 06:44 Assessment/Plan: 1. Pain: acetaminophen 1000mg PO Q6H PRN pain 1-3 and tramadol 50mg PO TID PRN pain 4-10. Resident has not used any PRN doses. Please continue to monitor for increased pain and PRN usage. 2. Bowel: senna/docusate 1T PO BID and magnesium citrate 300mL PO daily PRN constipation. Resident has not used any PRN doses. Please continue to monitor for constipation/diarrhea and PRN usage. 3. SVT: metoprolol tartrate 50mg PO BID. Please continue to monitor BP (last 134/71) and HR (last 98). 4. Rheumatoid arthritis: methotrexate 17.5mg PO weekly and folic acid 2mg PO daily. Please continue to monitor for S/S of RA, CBC, platelets (last 347,000), rash, GI disturbance, LFTs (last 10/13/23) and renal function. 5. BPH/urinary retention: doxazosin 2mg PO QHS. Please continue to monitor for S/S of BPH and BP. 6. Iron deficiency anemia: ferrous sulfate 325mg PO daily. Please consider an iron study as there is not one in the chart. Thanks. Please continue to monitor hemoglobin (last 9.2g/dL), constipation, darks stools. 7. Sjogren syndrome: Restasis 1gtt OU BID and cevimeline 30mg PO TID. Please continue to monitor for eye irritation, diarrhea and hyperhidrosis. Assessment/Plan for indications treated with psychotropic medications: 1. Anxiety: alprazolam 2mg PO TID PRN anxiety. Resident has had 1 dose. Please see physician note regarding GDR. Please continue to monitor for anxiety, PRN usage, dementia/delirium (BEERs medication), falls/fractures (BEERs) and confusion. Medical chart and medication regimen reviewed. The following medication irregul arities or issues were identified: 1. Ferrous sulfate 325mg PO daily. Please consider an iron study as there is not one in the chart. Thanks. Date Date of Note:: 07/21/24 Documented by User: Dr. Gopal Mclaughlin MD 12/04/23 07:23 TCU RX Drug Regimen Review Provider Comments Provider responsibility Provider Comments to Recommendations by Pharmacy: Agree
[2023-12-03 16:00] VITALS: TEMP 36.3
--- NOTE | 2023-12-03 21:18 | NURSING ---
Telephone order received and read back to increase Senna-S to 2 tablets po BID per resident request.
[2023-12-03 21:30] VITALS: BP 107/66; PULSE 76; O2SAT 96
[2023-12-03 21:59] VITALS: BP 107/66; PULSE 76
[2023-12-03] MEDS: Doxazosin 1 MG Tablet 2 MG PO (21:59)
[2023-12-03] MEDS: Senna/Docusate Sodium 1 Tablet 2 TABLET PO (22:00)
[2023-12-04] MEDS: CEVIMELINE HCL 30 MG CAPSULE PO ×3 (05:07→21:01)
[2023-12-04] MEDS: ALPRAZolam 0.5 MG Tablet 2 MG PO ×3 (05:07→21:08)
[2023-12-04 05:39] LABS: Hematocrit 26.7 % (40-54); Hemoglobin 9.2 g/dL (13.0-16.5)
[2023-12-04] MEDS: Ferrous Sulfate 325 MG Tablet PO (07:55)
[2023-12-04] MEDS: Folic Acid 1 MG Tablet 2 MG PO (07:55)
[2023-12-04] MEDS: Ensure Plus High Protein 120 ML LIQUID PO ×3 (07:56→18:20)
[2023-12-04] MEDS: CycloSPORINE Ophthalmic 1 DROP DROPERETTE 1 DRP EACH EYE ×2 (09:43→21:02)
[2023-12-04] MEDS: Senna/Docusate Sodium 1 Tablet 2 TABLET PO ×2 (09:43→21:03)
[2023-12-04 09:44] VITALS: PULSE 82
[2023-12-04] MEDS: Metoprolol Tartrate 50 MG Tablet PO ×2 (09:44→21:01)
--- NOTE | 2023-12-04 12:14 | NURSING ---
Metal Ceiling Builder Note; Activity Asset: Jessica Morataya is independent in his choice of daily activities. He has a cochlear implant and uses head phones to help him listen to the tv. Hood will read the newspaper, watch tv and visits w/family. He welcomes visits with the therapy dog. Staff will remind him of weekly activities and respect his right to say no.
[2023-12-04 15:22] VITALS: BP 128/77; PULSE 71; RESP 16; TEMP 36.6; O2SAT 94
[2023-12-04 19:45] VITALS: BP 116/58; PULSE 75; O2SAT 94
[2023-12-04 21:00] VITALS: PULSE 74; O2SAT 94
[2023-12-04] MEDS: Doxazosin 1 MG Tablet 2 MG PO (21:00)
[2023-12-04 21:01] VITALS: BP 116/58; PULSE 75
[2023-12-04 23:16] LABS: Iron 42 ug/dL (65-175); Iron Binding Capacity,Total 210 ug/dL (250-450)
[2023-12-05] MEDS: CEVIMELINE HCL 30 MG CAPSULE PO ×3 (05:42→21:49)
[2023-12-05] MEDS: ALPRAZolam 0.5 MG Tablet 2 MG PO ×3 (05:45→21:52)
[2023-12-05 06:22] VITALS: PULSE 76; O2SAT 97
[2023-12-05 09:23] VITALS: BP 123/57; PULSE 98
[2023-12-05] MEDS: Folic Acid 1 MG Tablet 2 MG PO (09:23)
[2023-12-05] MEDS: Metoprolol Tartrate 50 MG Tablet PO ×2 (09:23→21:49)
[2023-12-05] MEDS: Senna/Docusate Sodium 1 Tablet 2 TABLET PO (09:24)
[2023-12-05] MEDS: Ferrous Sulfate 325 MG Tablet PO (09:24)
[2023-12-05] MEDS: CycloSPORINE Ophthalmic 1 DROP DROPERETTE 1 DRP EACH EYE ×2 (09:25→21:48)
[2023-12-05 09:29] VITALS: BMI 20.9
[2023-12-05] MEDS: Ensure Plus High Protein 120 ML LIQUID PO ×3 (09:31→17:09)
[2023-12-05 09:33] VITALS: BP 123/57; PULSE 98
[2023-12-05 14:22] VITALS: BP 104/60; PULSE 80; RESP 18; TEMP 36.6; O2SAT 95
--- NOTE | 2023-12-05 15:05 | CASEMGMT ---
Social Work SW met with patient and at bedside. Introduced self and role. Verified contacts. Pt permitted remain for assessment. Pt is [facility] and assisted with translation. Patient confirmed code status as full code. Pt stated his daughter is pt's HCPOA and is providing copies. Educated to [facility] insurance with NRD 12/10 and continued stay is not guaranteed with each review. Pt expressed he is wanting to DC by 12/06. SW educated to benefit of further therapy and the disadvantage of only having a few days of therapy. encouraging pt to continue with stay, and especially since insurance has approved through 12/10. SW educated to pt's right to DC at any time, but POC meeting is held 12/05 and will revisit after IDT provides recommendations. Pt agreed. SW will continue to follow. CHIO MalloyW
[2023-12-05 19:46] VITALS: BP 113/61; PULSE 78
[2023-12-05 21:49] VITALS: BP 113/61; PULSE 78
[2023-12-05] MEDS: Doxazosin 1 MG Tablet 2 MG PO (21:50)
[2023-12-06] MEDS: CEVIMELINE HCL 30 MG CAPSULE PO ×3 (05:37→21:40)
[2023-12-06] MEDS: ALPRAZolam 0.5 MG Tablet 2 MG PO ×3 (05:37→21:40)
[2023-12-06] MEDS: Ensure Plus High Protein 120 ML LIQUID PO ×4 (08:26→21:40)
[2023-12-06] MEDS: Ferrous Sulfate 325 MG Tablet PO (08:27)
[2023-12-06] MEDS: Folic Acid 1 MG Tablet 2 MG PO (08:27)
[2023-12-06 08:28] VITALS: BP 106/51; PULSE 91
[2023-12-06] MEDS: Metoprolol Tartrate 50 MG Tablet PO ×2 (08:28→21:40)
[2023-12-06] MEDS: CycloSPORINE Ophthalmic 1 DROP DROPERETTE 1 DRP EACH EYE ×2 (08:29→21:40)
[2023-12-06 08:32] VITALS: BP 106/51; PULSE 91
--- NOTE | 2023-12-06 09:24 | CASEMGMT ---
Social Work BIMS () and PHQ-2 () completed for MDS assessment. Adela Benitez MSW STRETCHER LEVELER OPERATOR HELPER
[2023-12-06 10:30] VITALS: PULSE 76; RESP 18; O2SAT 96
--- NOTE | 2023-12-06 13:57 | CASEMGMT ---
Social Work IDT met with patient and for care plan meeting. Discussed patient's progress in PT/OT/ST/SN. Educated to [facility] insurance with NRD 12/10 and continued stay is not guaranteed with each review. Pt is adamant about discharging home tomorrow. Cognitive eval showed no concerns. SW inquired to about her opinion on DC. stated she has seen pt in OT but not PT. SW offered for to remain this afternoon to see PT session. Educated to therapy schedule for the weekend and not receiving therapy the day of DC. suggested DC 12/07 and pt agreeable. IDT agreeable. Pt denied HHC or OP therapy or any DME needs. to transport. Plan: DC home 12/07 with , no needs CHIO MalloyW
[2023-12-06 14:13] VITALS: BP 102/63; PULSE 80; RESP 21; TEMP 36.4; O2SAT 98
[2023-12-06 21:40] VITALS: BP 122/72; PULSE 86
[2023-12-06] MEDS: Doxazosin 1 MG Tablet 2 MG PO (21:40)
[2023-12-07 04:50] VITALS: BP 122/72; PULSE 86
[2023-12-07 05:45] LABS: Hematocrit 27.8 % (40-54); Hemoglobin 9.1 g/dL (13.0-16.5)
[2023-12-07] MEDS: CEVIMELINE HCL 30 MG CAPSULE PO ×3 (05:54→21:11)
[2023-12-07] MEDS: Ensure Plus High Protein 120 ML LIQUID PO ×4 (05:54→21:12)
[2023-12-07] MEDS: ALPRAZolam 0.5 MG Tablet 2 MG PO ×3 (05:55→21:14)
[2023-12-07 06:01] VITALS: PULSE 92; O2SAT 98
--- NOTE | 2023-12-07 07:40 | DS.PCM_ITS ---
Providers Date of Admission: 12/01/23 Primary Care Physician: Dr. Festus Castle DO Reason For Visit: FALLS, SVT, UTI Diagnosis Discharge Diagnosis (1) Debility: Status: Acute Code(s): R53.81 - Other malaise (2) Fall: Status: Acute Code(s): W19.XXXA - Unspecified fall, initial encounter (3) Urinary retention: Status: Acute Code(s): R33.9 - Retention of urine, unspecified (4) BPH (benign prostatic hyperplasia): Status: Acute Code(s): N40.0 - Benign prostatic hyperplasia without lower urinary tract symptoms (5) UTI (urinary tract infection): Status: Acute Code(s): N39.0 - Urinary tract infection, site not specified (6) Hyponatremia: Status: Acute Code(s): E87.1 - Hypo-osmolality and hyponatremia (7) SVT (supraventricular tachycardia): Status: Acute Code(s): I47.10 - Supraventricular tachycardia, unspecified (8) Rheumatoid arthritis: Status: Acute Code(s): M06.9 - Rheumatoid arthritis, unspecified (9) Anxiety: Status: Acute Code(s): F41.9 - Anxiety disorder, unspecified (10) Iron deficiency anemia: Status: Acute Code(s): D50.9 - Iron deficiency anemia, unspecified (11) Sjogren syndrome: Status: Acute Code(s): M35.00 - Sjogren syndrome, unspecified Plan 78 year old male with below past medical history hospitalized for weakness 2/2 UTI, urinary retention, complicated by hyponatremia, SVT, admitted to TCU with debility, here for rehabilitation, strengthening, prior to discharge home with . * Debility - PT/OT. * Dysphagia - ST. * Pain - Tylenol 1000mg q6 prn pain (1-3), Tramadol 50mg tid prn pain (4-10). * Bowel - senna/colace 1 tablet bid, Magnesium citrate 300ml daily prn. * Adult immunization - Administer pneumonia vaccine, covid vaccine, flu vaccine as appropriate. * DVT prophylaxis - Hold, anemia. 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 * BPH/urinary retention - Doxazosin 2mg qhs, indwelling fernandez catheter, follow up Dr. Baltazar outpatient. * Nutrition - Ensure Plus 120mL po tidcm. * Iron deficiency anemia - Ferrous sulfate 325mg daily. * Rheumatoid arthritis - MTX 17.5mg po qweek, Folic acid 2mg daily. * Insomnia - Melatonin 10mg qhs. * SVT - Metoprolol 50mg bid. * Dry Eyes - Artificial tears 1-2 gtt ou q2 prn. Medications at Discharge Home Medications ferrous sulfate, dried 159 mg (45 mg iron) tablet,extended release 130 mg PO DAILY anemia 04/17/20 folic acid 1 mg tablet 2 mg PO DAILY supplement 04/17/20 cevimeline 30 mg capsule 1 cap PO TID Dry Mouth 11/29/23 cyclosporine 0.05 % eye drops in a dropperette 1 drp ophthalmic (eye) BID Dry eyes 11/29/23 alprazolam 0.5 mg tablet 2 mg (4 x 0.5 mg) PO TID PRN PRN Anxiety #9 tabs 12/01/23 doxazosin 2 mg tablet (Cardura) 2 mg PO QHS BPH #1 TAB 12/01/23 methotrexate sodium 2.5 mg tablet 17.5 mg (7 x 2.5 mg) PO QWEEK ? #1 TAB 12/01/23 metoprolol tartrate 50 mg tablet 50 mg PO BID BP #0 tabs 12/01/23 peg [id number] 1 %-0.2 %-0.2 % eye drops (Artificial Tears ([id number])) 1 - 2 drp EACH EYE Q2H PRN DRY EYES #0 mL 12/01/23 Hospital Course Operations None Procedures None Summary of Care Provided Minutes Spent on Discharge: 35 Hospital Course: 78 year old male with below past medical history hospitalized for weakness 2/2 UTI, urinary retention, complicated by hyponatremia, SVT, admitted to TCU with debility, here for rehabilitation, strengthening, prior to discharge home with . Discharge home with 12/08/2023, No needs. Physical Exam Const alert General Appearance: cooperative HEENT normocephalic Eyes PERRL and EOMs intact bilaterally Neck supple, no JVD and no carotid bruits Resp normal respiratory effort, normal air movement and clear to auscultation bilaterally Cardio regular rate and regular rhythm GI normal to inspection, nondistended, normoactive bowel sounds, non-tender and non-distended Bladder / Kidney Exam: catheter in place urethral Extremity normal capillary refill General Extremity: Negative for edema Skin no rashes or lesions noted General Skin Exam: no breakdown Psych affect normal Appearance: appropriate Weight / BMI Weight Weight: 66.451 kg Body Mass Index (BMI) 20.9 ABG / Lab / Microbiology Data 12/07/23 05:09 12/02/23 06:44 Laboratory: Laboratory Results - last 24 hr 12/07/23 05:09: Hgb 9.1 L, Hct 27.8 L D/C Instructions Discharge Diet: No restrictions Discharge Activity: Return to Normal Activity, May Shower and Use Walker Weight Bearing Status: Weight bearing as tolerated Call your doctor if you observe: Fever of 101 or Higher, Inability to urinate, Inability to have a bowel movement, Shortness of breath, Dizziness, Fainting spells, Swelling in the ankles, Chest pain and Uncontrolled pain Additional Instructions: Discharge home with 12/08/2023, No needs. Please Follow Up With: Micheal Baltazar MD When: As scheduled. Meaningful Use Info Meaningful Use Meaningful Use Diagnoses (Choose all that apply): None applicable Ischemic Stroke Statin Dosing Therapy Reference: STATIN DOSE THERAPY REFERENCE: * Patients > 75 years receive moderate or high dose statin therapy. * Patients 75 years or YOUNGER should receive HIGH intensity statin dose unless contraindicated. You will be required to document reason for non-treatment if statin daily dose does not meet guidelines. HIGH DOSE STATIN THERAPY DAILY Atorvastatin > than or = to 40 mg Rosuvastatin > than or = to 20 mg Amlodipine + Atorvastatin > than or = to 2.5/40 mg Ezetimibe + Simvastatin 10/80 mg Simvastatin 80mg Discharge Plan Admission Admit Date/Time: 12/01/23 16:38 Primary Reason for Your Visit: Debility. Attending Provider: Gopal Mclaughlin Chi Primary Care Provider: Festus Castle Instructions Additional Instructions / Restrictions: Discharge home with 12/08/2023, No needs. Discharge Orders/Prescriptions Prescriptions: Continued folic acid 1 MG tablet 2 mg PO DAILY ferrous sulfate, dried 159 MG tablet extended release 130 mg PO DAILY cevimeline 30 mg capsule 1 cap PO TID cyclosporine 0.05 % dropperette 1 drp ophthalmic (eye) BID alprazolam 0.5 mg Tablet 2 mg PO TID PRN PRN (Reason: Anxiety) Qty: 9 0RF metoprolol tartrate 50 mg Tablet 50 mg PO BID Qty: 0 0RF Artificial Tears([id number]) 1-0.2-0.2 % Drops 1 - 2 drp EACH EYE Q2H PRN (Reason: DRY EYES) Qty: 0 0RF doxazosin [Cardura] 2 mg tablet 2 mg PO QHS Qty: 1 0RF methotrexate sodium 2.5 mg tablet 17.5 mg PO QWEEK Qty: 1 0RF Rx Instructions: give every Monday starting 12/08/23 Discontinued methotrexate sodium 2.5 MG tablet 8 tab PO FR Patient Comments: Only takes on Fridays melatonin 10 mg Tablet, Sublingual 10 mg PO QHS Qty: 0 0RF Ensure Plus High Protein 0.08 gram-1.5 kcal/mL Liquid 120 ml PO TIDCM Qty: 0 0RF tramadol 50 mg tablet 50 mg PO TID PRN (Reason: pain) Qty: 10 0RF Referrals / Follow Up: Festus Castle DO [Primary Care Provider] - (patient has appt set up) Disposition Disposition (needs filled in before D/C Order can be placed): Home, Self Care
[2023-12-07] MEDS: Folic Acid 1 MG Tablet 2 MG PO (09:07)
[2023-12-07] MEDS: Ferrous Sulfate 325 MG Tablet PO (09:08)
[2023-12-07] MEDS: CycloSPORINE Ophthalmic 1 DROP DROPERETTE 1 DRP EACH EYE ×2 (09:10→21:10)
[2023-12-07 09:12] VITALS: BP 117/81; PULSE 90
[2023-12-07] MEDS: Metoprolol Tartrate 50 MG Tablet PO ×2 (09:12→21:07)
--- NOTE | 2023-12-07 11:23 | MDS.RN ---
MDS pain interview completed.
--- NOTE | 2023-12-07 14:37 | NURSING ---
Offered covid vaccine, VIS provided. Patient refuses at this time.
[2023-12-07 15:53] VITALS: BP 113/67; PULSE 83; RESP 16; TEMP 36.6; O2SAT 94
[2023-12-07] MEDS: Acetaminophen 500 MG Tablet 1000 MG PO (19:41)
[2023-12-07 21:04] VITALS: BP 127/66; PULSE 84; O2SAT 98
[2023-12-07 21:07] VITALS: BP 127/66; PULSE 84
[2023-12-07] MEDS: Doxazosin 1 MG Tablet 2 MG PO (21:08)
[2023-12-08 02:01] VITALS: PULSE 84; O2SAT 98
[2023-12-08] MEDS: CEVIMELINE HCL 30 MG CAPSULE PO (05:13)
[2023-12-08] MEDS: Ensure Plus High Protein 120 ML LIQUID PO (05:13)
[2023-12-08] MEDS: ALPRAZolam 0.5 MG Tablet 2 MG PO (05:14)
[2023-12-08 06:09] LABS: Absolute Lymphocyte Count 0.51 X10^3/uL (0.83-4.51); Absolute Neutrophil Count 8.1 X10^3/uL (2.0-7.7); Basophil# 0.06 X10^3/uL; Basophil% 0.6 % (0-1); Eosinophil# 0.12 X10^3/uL; Eosinophils% 1.2 % (0-5); Hematocrit 29.7 % (40-54); Hemoglobin 9.7 g/dL (13.0-16.5); Lymphocyte # 0.51 X10^3/ul (0.83-4.51); Lymphocyte % 5.1 % (19-41); Mean Corp Hgb Conc 32.7 g/dL (32-36); Mean Corpuscular Hgb 30.3 pg (27.0-32.0); Mean Corpuscular Volume 92.8 fL (80-94); Monocyte# 0.94 X10^3/uL; Monocyte% 9.4 % (0-10); NRBC Flagged by Analyzer 0 % (0-5); Neutrophil # 8.06 X10^3/uL (2.7-7.7); Neutrophil % 80.3 % (47-70); POSITIVE DIFFERENTIAL YES; Platelet Count 414 K/mm3 (150-450); RBC Distribution Width CV 13.5 % (11.6-14.6); RBC Distribution Width SD 45.8 fl (35.1-43.9)
[2023-12-08 06:35] LABS: Anion Gap 5 (5-15); BUN 8 mg/dL (7-18); BUN/Creat Ratio 11.5 RATIO (10-20); Calcium,Total 8.8 mg/dL (8.5-10.1); Chloride 99 mmol/L (98-107); Creatinine, Serum 0.69 mg/dL (0.70-1.30); EST Glomerular Filtration Rate 117 mL/min (>60); Est Glom Filt Rate - Afr Amer 141 mL/min (>60); Estimated Creatinine Clearance 70.37 ml/min; Glucose 96 mg/dL (74-106); Sodium Level 133 mmol/L (136-145)
[2023-12-08 08:21] VITALS: BP 121/60; PULSE 93
[2023-12-08] MEDS: Metoprolol Tartrate 50 MG Tablet PO (08:21)
[2023-12-08] MEDS: Folic Acid 1 MG Tablet 2 MG PO (08:22)
[2023-12-08] MEDS: Ferrous Sulfate 325 MG Tablet PO (08:22)
[2023-12-08] MEDS: Methotrexate 2.5 MG Tablet 17.5 MG PO (08:23)
[2023-12-08] MEDS: CycloSPORINE Ophthalmic 1 DROP DROPERETTE 1 DRP EACH EYE (08:27)
--- NOTE | 2023-12-08 09:08 | NURSING ---
Production Machine Computer Operator Note, MDS for 12/08/2023 Complete
--- NOTE | 2023-12-13 13:00 | MDS.RN ---
Information for the MDS was obtained from review of the clinical record, interview of resident, staff, and direct observation of resident?s care.
== END 2023-12-08 12:05 | disposition home or self-care (01) | DRG 690 ==
PROVIDERS: Admitting Provider Family Medicine Geriatric Medicine; PCP Preventive Medicine Occupational Medicine; Referring Provider Family Medicine Geriatric Medicine; Visit Provider Family Medicine Geriatric Medicine
DX: N39.0 Urinary tract infection, site not specified (principal); E87.1 Hypo-osmolality and hyponatremia; I47.10 Supraventricular tachycardia, unspecified; M06.9 Rheumatoid arthritis, unspecified; D50.9 Iron deficiency anemia, unspecified; F41.9 Anxiety disorder, unspecified; M35.00 Sjogren syndrome, unspecified; Z87.891 Personal history of nicotine dependence; R33.8 Other retention of urine; N40.1 Benign prostatic hyperplasia with lower urinary tract symptoms; Z79.891 Long term (current) use of opiate analgesic; R29.6 Repeated falls; Z79.899 Other long term (current) drug therapy
CPT/HCPCS: 36415; 80048; 83540; 83550; 85014; 85018; 85025; 92507; 92523; 92526; 92610; 97110; 97116; 97162; 97165; 97530; 97535; 97802; A4216; J8610

== ENCOUNTER 2023-12-13 18:25 | Observation (INO) | payer MEDICARE, SELFPAY ==
[2023-12-13] VITALS (12 sets, daily range): BP systolic 99–130; BP diastolic 62–80; PULSE 65–99; RESP 6–18; TEMP 36.4–36.9; O2SAT 92–100; BMI 20.5
[2023-12-13] MEDS: Lactated Ringers 1,000 ML 15 ML IV (14:32)
[2023-12-13 14:47] LABS: International Normalized Ratio 1.1; Prothrombin Time (Protime)PT. 14.6 SECONDS (11.7-14.9)
[2023-12-13 14:48] LABS: Partial Thromboplast Time 30.5 Seconds (24.1-36.2)
--- NOTE | 2023-12-13 15:45 | PROS_PTH ---
PATIENT: JAMISON ADAIR LOC: [facility] U#:[id number] AGE/SX: 78/M ROOM: WI313 RE12/13/[address]: Dr. Micheal Baltazar MD : 1945 BED: 1 DIS: 12/14/2023 SPEC #: [id number] RECD: 12/14/23 09:21 STATUS: NATO RUBIO #: [id number] JATINDER: 12/13/23 15:[address]: Micheal Baltazar DEPT: SURGICAL PATHOLOGY RECD BY: Marielos Epstein ENTERED: 12/14/23 11:42 SP TYPE: TURP OTHR DR: Dr. Festus Castle DO Tissues: Prostate, NOS Procedures: Surgery Specimen Level IV HEADER OPERATION: Transurethral resection, prostate, resection of a regrowth PRE-OP DIAGNOSIS: Benign prostatic hyperplasia, obstruction TISSUE SUBMITTED: Prostate tissue MICROSCOPIC DIAGNOSIS Prostate, transurethral resection: Benign nodule hyperplasia, glandular and stromal types. Chronic inflammation. AMAURY/ 12/15/2023 MICROSCOPIC DESCRIPTION Slides are reviewed. GROSS DESCRIPTION Received is one container labeled with the patient's name and designated prostate tissue. The specimen consists of multiple irregular fragments of pink-stanton, rubbery, soft tissue that in aggregate weigh 2.5 gm and measure in aggregate 6.0 x 2.0 x 0.3 cm. The entire specimen is submitted in three cassettes. Yolanda 12/14/2023 TC:3 CPT: 87751
[2023-12-13] MEDS: Cefazolin 2 GM in 0.9% Normal Saline (100mL Bag) 100 ML IV (17:41)
--- NOTE | 2023-12-13 18:21 | DCINST_ITS ---
Discharge Instructions Diet Discharge Diet: No restrictions Activity Discharge Activity: Return to Normal Activity and May Not Drive (while taking narcotic pain medications.) Dressing / Incision Call your doctor if you observe: Fever of 101 or Higher Follow Up Care Please Follow Up With: Micheal Baltazar MD When: Call [phone] for an appointment Test Results: Test results from this visit will be discussed in further detail at your follow- up appointment, if applicable. Discharge Plan Admission Attending Provider: Micheal Baltazar Primary Care Provider: Festus Castle Instructions Print Language: Montenegrin Discharge Orders/Prescriptions Prescriptions: No Action folic acid 1 MG tablet 2 mg PO DAILY ferrous sulfate, dried 159 MG tablet extended release 130 mg PO DAILY cevimeline 30 mg capsule 1 cap PO TID cyclosporine 0.05 % dropperette 1 drp ophthalmic (eye) BID alprazolam 0.5 mg Tablet 2 mg PO TID PRN PRN (Reason: Anxiety) Qty: 9 0RF doxazosin [Cardura] 2 mg tablet 2 mg PO QHS Qty: 1 0RF methotrexate sodium 2.5 mg tablet 17.5 mg PO QWEEK Qty: 1 0RF Rx Instructions: give every Monday starting 12/08/23 metoprolol tartrate 50 mg Tablet 50 mg PO BID 30 Days Qty: 60 0RF Referrals / Follow Up: Festus Castle DO [Primary Care Provider] - Disposition Disposition (needs filled in before D/C Order can be placed): Home, Self Care
--- NOTE | 2023-12-13 18:21 | PCM.HP.STD ---
HPI - General General Date of Service: 12/13/23 Chief Complaint: Retention of urine HPI Narrative JAMISON ADAIR, is a 78 M who presents for a transurethral resection of the prostate he has BPH with obstruction and recently had retention of urine from regrowth of the prostate channel, he had a prior TURP and has significant regrowth so organ to do a resection of this regrowth tissue. [facility] Medical History (Updated 12/12/23 @ 13:43 by Nita Taveras) Wears hearing aid Loss of hearing Cancer Abrasion Prostate disease Low iron Difficulty swallowing Former smoker History of stress test Wears glasses Wears partial dentures Wears dentures Rheumatoid arthritis History of spleen injury Cochlear implant in place Home Medications ?Medication ?Instructions ?Recorded ?Last Taken ?Type ferrous sulfate, dried 159 mg (45 130 mg PO DAILY anemia 04/17/20 12/12/23 History mg iron) tablet,extended release folic acid 1 mg tablet 2 mg PO DAILY supplement 04/17/20 12/12/23 History cevimeline 30 mg capsule 1 cap PO TID Dry Mouth 11/29/23 12/13/23 History cyclosporine 0.05 % eye drops in a 1 drp ophthalmic (eye) BID Dry eyes 11/29/23 12/13/23 History dropperette alprazolam 0.5 mg tablet 2 mg (4 x 0.5 mg) PO TID PRN PRN 12/01/23 12/13/23 Rx Anxiety #9 tabs doxazosin 2 mg tablet (Cardura) 2 mg PO QHS BPH #1 TAB 12/01/23 12/07/23 Rx methotrexate sodium 2.5 mg tablet 17.5 mg (7 x 2.5 mg) PO QWEEK ? #1 12/01/23 12/08/23 Rx TAB metoprolol tartrate 50 mg tablet 50 mg PO BID 30 days #60 tabs 12/08/23 12/13/23 Rx Allergy/AdvReac Type Severity Reaction Status Date / Time hydrocodone (From Vicodin) Allergy Swelling Verified 12/13/23 14:23 tamsulosin AdvReac Severe Other Verified 12/13/23 14:23 tramadol AdvReac Intermediate Other Verified 12/13/23 14:23 finasteride AdvReac Mild Other Verified 12/13/23 14:23 Surgical History (Updated 12/12/23 @ 13:29 by Nita Taveras) Hx of local excision of skin lesion History of appendectomy History of splenectomy History of colonoscopy History of hand surgery S/P TURP Social History (Updated 12/01/23 @ 22:[address] Gopal Mclaughlin MD) household members: spouse Smoking Status: Former smoker alcohol intake: never substance use type: does not use Vital Signs Vital Signs Vital Signs: 12/13/23 14:25 12/13/23 14:25 Temperature 98.2 F Temperature Source Temporal Pulse Rate 71 Respiratory Rate 18 Respiratory Pattern Normal Blood Pressure 101/62 Blood Pressure Mean 75 Blood Pressure Source Monitor Blood Pressure Position Semi-Fowlers Blood Pressure Location Left Arm Pulse Ox 100 Oxygen Delivery Method Room Air Weight Weight: 65 kg Body Mass Index (BMI) 20.5 Results Lab / Micro Data Labs: Laboratory Results - last 24 hr 12/13/23 14:10: PT 14.6, INR 1.1, APTT 30.5
--- NOTE | 2023-12-13 18:22 | PCM.OPRPT ---
Report of Operation Date of Procedure: 12/13/23 Pre-Operative Diagnosis: BPH with obstruction retention of urine from regrowth Post-Operative Diagnosis: The same Surgery/Procedure Performed:: Transurethral resection of the prostate for regrowth and obstruction Description of Surgical Findings:: This is a 78-year-old gentleman who had a prior TURP stent few years ago he had been doing fairly well until recently he developed retention of urine on cystoscopy is found to have obstruction from prostatic channel and regrowth of tissue so we will present today for reresection of the prostate. He was taken back to the operating room after smooth induction of anesthesia he was placed in dorsolithotomy position the penis testicles were prepped and draped in usual sterile fashion went in the bladder with a 24 [place] noncontinuous flow Olympus resectoscope he had significant obstruction coming from the lateral lobes I then resected these lateral lobes down to the verumontanum resected down the median lobe and the scar tissue in the medium part of the bladder I did a flow test he had a nice wide open flow after resecting this tissue then I cauterized extensively to get hemostasis we placed a 22 [place] catheter in the bladder it was placed on continuous irrigation he had a nice wide open channel from the verumontanum into the bladder neck open channel open flow test with no bleeding and so we placed the catheter for continuous irrigation overnight will take out the catheter tomorrow morning for voiding trial. Surgeon: Micheal Baltazar Type of Anesthesia: General Drains: 22fr 3 way Estimated Blood Loss (mL): 5 Admit VTE Documentation VTE Present on Admission: No VTE Mechan Device Prophylaxis: SCD's VTE Pharm Prophylaxis ordered?: No
--- NOTE | 2023-12-13 18:34 | PCM.POST.ANE ---
Anesthesia: Postop Eval I Current Vital Signs Temperature: 97.6 F Pulse Rate: 67 Blood Pressure: 121/67 Respiratory Rate: 6 Pulse Ox: 100 Oxygen Delivery Method: Room Air Assessment Airway patent: Yes Spontaneous unlabored respirations: Yes Mental status: Awake and Calm nausea: No Vomiting: No Anesthesia Complication: No Fluid Hydration Crystalloid volume administer (ml): 900 Total IV fluid infused: 900 Progress Note Anesthesia document: Postop Eval 1 completed: Yes
--- NOTE | 2023-12-13 18:45 | PCM.POSTANE2 ---
Anesthesia Postop Eval I Sum Postop Eval Completion status Anesthesia document: Postop Eval 1 completed: Yes Anesthesia Postop Eval I Summary Anesthesia Postop Eval I Summary: Anesthesia Postop Eval I: Assessment Summary Airway patent Yes 12/13/23 18:41 Spontaneous unlabored Yes 12/13/23 18:41 respirations Mental status Awake,Calm 12/13/23 18:41 nausea No 12/13/23 18:41 Vomiting No 12/13/23 18:41 Anesthesia Postop Eval I: Fluid Summary Crystalloid volume administer 900 12/13/23 18:45 (ml) Colloids volume administered ( ml) Blood Product volume administered (ml) Total IV fluid infused 900 12/13/23 18:45 Anesthesia Postop Eval I: Summary Notes Anesthesia Complication No 12/13/23 18:45 Anesthesia Complication Comment: Post-operative progress note Anesthesia: Postop Eval II Evaluation Mental status: Awake and Calm Pain Level: 1 nausea: No Vomiting: No Complications Anesthesia Complication: No
[2023-12-13] MEDS: 0.9% Normal Saline (1000mL) 1,000 ML 125 ML IV (20:07)
[2023-12-13] MEDS: Docusate Sodium 100 MG Capsule 200 MG PO (22:15)
[2023-12-13] MEDS: Metoprolol Tartrate 50 MG Tablet PO (22:15)
[2023-12-13] MEDS: CEVIMELINE HCL 30 MG CAPSULE PO (22:16)
[2023-12-14 01:51] VITALS: RESP 15
[2023-12-14] MEDS: Cefazolin 1 GM/50 ML BAG IV ×2 (02:08→09:58)
[2023-12-14 04:00] VITALS: BP 102/70; PULSE 66; RESP 15; TEMP 36.4; O2SAT 98
[2023-12-14] MEDS: 0.9% Normal Saline (1000mL) 1,000 ML 125 ML IV (04:07)
[2023-12-14 07:39] VITALS: PULSE 80
--- NOTE | 2023-12-14 07:48 | PCM.PN.GU ---
Subjective Subjective Status post TURP DC Nicole and he can go home today. Objective Data Objective Data Vital Signs: Vital Signs Temp Pulse Resp BP Pulse Ox O2 Del Method 97.6 F L 80 15 102/70 98 Room Air 12/14/23 04:00 12/14/23 07:39 12/14/23 04:00 12/14/23 04:00 12/14/23 04:00 12/14/23 04:00 Oxygen Delivery Method Room Air Weight: 65 kg Body Mass Index (BMI) 20.5 Intake & Output: Intake and Output for Last 24 Hours 12/12/23 12/13/23 12/14/23 23:59 23:59 23:59 Intake Total 110 / 810 1850 / 1850 Output Total 700 / 2000 1300 / 1300 Balance -590 / -1190 550 / 550 Lab / Micro Data Labs: Laboratory Results - last 24 hr 12/13/23 14:10: PT 14.6, INR 1.1, APTT 30.5
--- NOTE | 2023-12-14 08:00 | NURSING ---
assisted up to chair call light in reach.
[2023-12-14 08:01] VITALS: PULSE 80
[2023-12-14] MEDS: Metoprolol Tartrate 50 MG Tablet PO (08:01)
[2023-12-14] MEDS: Ferrous Sulfate 325 MG Tablet PO (08:02)
[2023-12-14] MEDS: Docusate Sodium 100 MG Capsule 200 MG PO (08:02)
[2023-12-14] MEDS: Folic Acid 1 MG Tablet 2 MG PO (08:02)
[2023-12-14] MEDS: CEVIMELINE HCL 30 MG CAPSULE PO (08:06)
--- NOTE | 2023-12-14 09:42 | CASEMGMT ---
RN CM into pt room, pt sitting up in chair and at bedside. Pt states he has steps to enter the home but pt assists him. Pt has FFSU and denies any homegoing needs. Pt was recently dc'd from [facility]. Pt states his strength is good.
--- NOTE | 2023-12-14 11:35 | PHA.DC.MR.R ---
Pharmacy MD Med Reconciliation Pharmacy Service has performed discharge medication reconciliation for this patient. The patient's discharge medication list was reviewed for discrepancies and discrepancies were resolved. Medications at Discharge Home Medications ferrous sulfate, dried 159 mg (45 mg iron) tablet,extended release 130 mg PO DAILY anemia 04/17/20 folic acid 1 mg tablet 2 mg PO DAILY supplement 04/17/20 cevimeline 30 mg capsule 1 cap PO TID Dry Mouth 11/29/23 cyclosporine 0.05 % eye drops in a dropperette 1 drp ophthalmic (eye) BID Dry eyes 11/29/23 alprazolam 0.5 mg tablet 2 mg (4 x 0.5 mg) PO TID PRN PRN Anxiety #9 tabs 12/01/23 doxazosin 2 mg tablet (Cardura) 2 mg PO QHS BPH #1 TAB 12/01/23 methotrexate sodium 2.5 mg tablet 17.5 mg (7 x 2.5 mg) PO QWEEK ? #1 TAB 12/01/23 metoprolol tartrate 50 mg tablet 50 mg PO BID 30 days #60 tabs 12/08/23 ciprofloxacin HCl 500 mg tablet (Cipro) 500 mg PO BID #10 tabs 12/13/23
[2023-12-14 12:43] VITALS: BP 154/82; PULSE 80; RESP 18; TEMP 36.6; O2SAT 99
== END 2023-12-14 12:57 | disposition home or self-care (01) ==
LOC: SDC 19:00 → MS3 19:01
PROVIDERS: Anesthesiology; Admitting Provider Urology; PCP Preventive Medicine Occupational Medicine; Referring Provider Urology; Visit Provider Urology
PROC: (CPT 52630; principal; 2023-12-13 15:35)
DX: N40.1 Benign prostatic hyperplasia with lower urinary tract symptoms (principal); M06.9 Rheumatoid arthritis, unspecified; Z87.891 Personal history of nicotine dependence; N13.8 Other obstructive and reflux uropathy; R33.8 Other retention of urine; Z79.899 Other long term (current) drug therapy; D50.9 Iron deficiency anemia, unspecified
CPT/HCPCS: 52630; 85610; 85730; 88305; 96361; 96365; 96366; 99221; J7030; J7120; G0378; J2405

== ENCOUNTER → 2023-12-19 | Outpatient (CLI) | payer MEDICARE, SELFPAY ==
[2023-12-19 12:03] LABS: Hematocrit 41.5 % (40-54); Hemoglobin 13.4 g/dL (13.0-16.5); Mean Corp Hgb Conc 32.3 g/dL (32-36); Mean Corpuscular Hgb 30.2 pg (27.0-32.0); Mean Corpuscular Volume 93.7 fL (80-94); Platelet Count 421 K/mm3 (150-450); RBC Distribution Width CV 14.1 % (11.6-14.6); RBC Distribution Width SD 47.4 fl (35.1-43.9); Red Blood Count 4.43 M/mm3 (4.6-6.2); White Blood Count 6.6 K/mm3 (4.4-11.0)
[2023-12-19 12:27] LABS: Anion Gap 7 (5-15); BUN 7 mg/dL (7-18); BUN/Creat Ratio 8.7 RATIO (10-20); Calcium,Total 8.9 mg/dL (8.5-10.1); Chloride 98 mmol/L (98-107); Creatinine, Serum 0.81 mg/dL (0.70-1.30); EST Glomerular Filtration Rate 98 mL/min (>60); Est Glom Filt Rate - Afr Amer 119 mL/min (>60); Glucose 100 mg/dL (74-106); Potassium 3.9 mmol/L (3.5-5.1); Sodium Level 134 mmol/L (136-145)
== END | disposition home or self-care (01) ==
LOC: MTLAB 09:13
PROVIDERS: PCP Preventive Medicine Occupational Medicine; Referring Provider Preventive Medicine Occupational Medicine; Visit Provider Preventive Medicine Occupational Medicine
DX: D50.8 Other iron deficiency anemias (principal); E87.1 Hypo-osmolality and hyponatremia
CPT/HCPCS: 36415; 80048; 85027

== ENCOUNTER → 2024-01-09 | Outpatient (CLI) | payer MEDICARE, SELFPAY ==
[2024-01-09 10:05] LABS: Absolute Lymphocyte Count 0.39 X10^3/uL (0.83-4.51); Absolute Neutrophil Count 4.4 X10^3/uL (2.0-7.7); Basophil# 0.04 X10^3/uL; Basophil% 0.8 % (0-1); Eosinophils% 1.9 % (0-5); Hematocrit 36.1 % (40-54); Hemoglobin 11.5 g/dL (13.0-16.5); Lymphocyte # 0.39 X10^3/ul (0.83-4.51); Lymphocyte % 7.3 % (19-41); Mean Corp Hgb Conc 31.9 g/dL (32-36); Mean Corpuscular Hgb 29.7 pg (27.0-32.0); Mean Corpuscular Volume 93.3 fL (80-94); Mean Platelet Vol. 8.9 fl (6.2-12.0); Monocyte# 0.42 X10^3/uL; Monocyte% 7.9 % (0-10); NRBC Flagged by Analyzer 1.1 % (0-5); Neutrophil # 4.35 X10^3/uL (2.7-7.7); Neutrophil % 81.5 % (47-70); POSITIVE DIFFERENTIAL YES; Platelet Count 274 K/mm3 (150-450); RBC Distribution Width CV 14.6 % (11.6-14.6); RBC Distribution Width SD 49.4 fl (35.1-43.9); Red Blood Count 3.87 M/mm3 (4.6-6.2); White Blood Count 5.3 K/mm3 (4.4-11.0)
[2024-01-09 13:14] LABS: ALB/GLOB Ratio 0.7 RATIO (0.9-2.4); AST(SGOT) 13 U/L (15-37); Alanine Aminotransfer ALT/SGPT 21 U/L (16-61); Albumin, Serum 3.2 g/dL (3.2-5.0); Alkaline Phosphatase 87 U/L (45-117); Anion Gap 10 (5-15); BUN 8 mg/dL (7-18); BUN/Creat Ratio 9.3 RATIO (10-20); Calcium,Total 9.3 mg/dL (8.5-10.1); Chloride 94 mmol/L (98-107); Creatinine, Serum 0.86 mg/dL (0.70-1.30); EST Glomerular Filtration Rate 91 mL/min (>60); Est Glom Filt Rate - Afr Amer 110 mL/min (>60); Globulin 4.5 g/dL (2.2-4.2); Glucose 117 mg/dL (74-106); Potassium 4.2 mmol/L (3.5-5.1); Protein, Total 7.7 g/dL (6.4-8.2); Sodium Level 128 mmol/L (136-145)
== END | disposition home or self-care (01) ==
LOC: MTLAB 08:21
PROVIDERS: PCP Preventive Medicine Occupational Medicine; Referring Provider Internal Medicine Rheumatology; Visit Provider Internal Medicine Rheumatology
DX: M05.70 Rheumatoid arthritis with rheumatoid factor of unspecified site without organ or systems involvement (principal); M35.00 Sjogren syndrome, unspecified; M19.041 Primary osteoarthritis, right hand
CPT/HCPCS: 36415; 80053; 85025

== ENCOUNTER → 2024-03-08 | Outpatient (CLI) | payer MEDICARE, SELFPAY ==
[2024-03-08 10:30] LABS: Absolute Neutrophil Count 5.4 X10^3/uL (2.0-7.7); Basophil# 0.03 X10^3/uL; Basophil% 0.4 % (0-1); Eosinophil# 0.09 X10^3/uL; Eosinophils% 1.3 % (0-5); Hematocrit 34.9 % (40-54); Hemoglobin 11.5 g/dL (13.0-16.5); Lymphocyte % 10.2 % (19-41); Mean Corpuscular Hgb 30.4 pg (27.0-32.0); Mean Corpuscular Volume 92.3 fL (80-94); Mean Platelet Vol. 9.1 fl (6.2-12.0); Monocyte# 0.56 X10^3/uL; Monocyte% 8.2 % (0-10); NRBC Flagged by Analyzer 0.3 % (0-5); Neutrophil # 5.38 X10^3/uL (2.7-7.7); Neutrophil % 78.9 % (47-70); Platelet Count 362 K/mm3 (150-450); RBC Distribution Width CV 13.4 % (11.6-14.6); RBC Distribution Width SD 44.8 fl (35.1-43.9); Red Blood Count 3.78 M/mm3 (4.6-6.2); White Blood Count 6.8 K/mm3 (4.4-11.0)
[2024-03-08 11:26] LABS: ALB/GLOB Ratio 0.7 RATIO (0.9-2.4); AST(SGOT) 15 U/L (15-37); Alanine Aminotransfer ALT/SGPT 16 U/L (16-61); Alkaline Phosphatase 73 U/L (45-117); Anion Gap 8 (5-15); BUN 11 mg/dL (7-18); BUN/Creat Ratio 13.9 RATIO (10-20); Calcium,Total 9.4 mg/dL (8.5-10.1); Chloride 96 mmol/L (98-107); Creatinine, Serum 0.79 mg/dL (0.70-1.30); EST Glomerular Filtration Rate 100 mL/min (>60); Est Glom Filt Rate - Afr Amer 121 mL/min (>60); Globulin 4.5 g/dL (2.2-4.2); Glucose 93 mg/dL (74-106); Potassium 4.1 mmol/L (3.5-5.1); Protein, Total 7.5 g/dL (6.4-8.2); Sodium Level 130 mmol/L (136-145)
== END | disposition home or self-care (01) ==
LOC: MTLAB 09:24
PROVIDERS: PCP Preventive Medicine Occupational Medicine; Referring Provider Internal Medicine Rheumatology; Visit Provider Internal Medicine Rheumatology
DX: M05.70 Rheumatoid arthritis with rheumatoid factor of unspecified site without organ or systems involvement (principal); Z79.899 Other long term (current) drug therapy; M35.00 Sjogren syndrome, unspecified
CPT/HCPCS: 36415; 80053; 85025

== ENCOUNTER → 2024-04-29 | Outpatient (CLI) | payer MEDICARE, SELFPAY ==
[2024-04-29 15:40] LABS: PSA,Total- Diagnostic 6.28 ng/mL (0.0-4.0)
== END | disposition home or self-care (01) ==
PROVIDERS: PCP Preventive Medicine Occupational Medicine; Referring Provider Urology; Visit Provider Urology
DX: R97.20 Elevated prostate specific antigen [PSA] (principal)
CPT/HCPCS: 36415; 84153

== ENCOUNTER → 2024-06-07 | Outpatient (CLI) | payer MEDICARE, SELFPAY ==
[2024-06-07 10:47] LABS: Absolute Lymphocyte Count 0.67 X10^3/uL (0.83-4.51); Absolute Neutrophil Count 5.1 X10^3/uL (2.0-7.7); Basophil# 0.03 X10^3/uL; Basophil% 0.5 % (0-1); Eosinophils% 1.6 % (0-5); Hematocrit 32.4 % (40-54); Lymphocyte # 0.67 X10^3/ul (0.83-4.51); Lymphocyte % 10.4 % (19-41); Mean Corpuscular Hgb 31.3 pg (27.0-32.0); Mean Corpuscular Volume 92.3 fL (80-94); Mean Platelet Vol. 9.1 fl (6.2-12.0); Monocyte# 0.41 X10^3/uL; Monocyte% 6.4 % (0-10); NRBC Flagged by Analyzer 0 % (0-5); Neutrophil # 5.14 X10^3/uL (2.7-7.7); Neutrophil % 79.7 % (47-70); Platelet Count 326 K/mm3 (150-450); RBC Distribution Width CV 13.5 % (11.6-14.6); RBC Distribution Width SD 45.5 fl (35.1-43.9); Red Blood Count 3.51 M/mm3 (4.6-6.2); White Blood Count 6.4 K/mm3 (4.4-11.0)
[2024-06-07 15:37] LABS: ALB/GLOB Ratio 0.7 RATIO (0.9-2.4); AST(SGOT) 16 U/L (15-37); Alanine Aminotransfer ALT/SGPT 17 U/L (16-61); Albumin, Serum 3.1 g/dL (3.2-5.0); Alkaline Phosphatase 79 U/L (45-117); Anion Gap 8 (5-15); BUN 9 mg/dL (7-18); BUN/Creat Ratio 12.6 RATIO (10-20); Calcium,Total 9.6 mg/dL (8.5-10.1); Chloride 95 mmol/L (98-107); Creatinine, Serum 0.71 mg/dL (0.70-1.30); EST Glomerular Filtration Rate 113 mL/min (>60); Est Glom Filt Rate - Afr Amer 137 mL/min (>60); Globulin 4.7 g/dL (2.2-4.2); Glucose 82 mg/dL (74-106); Protein, Total 7.8 g/dL (6.4-8.2); Sodium Level 130 mmol/L (136-145)
== END | disposition home or self-care (01) ==
LOC: MTLAB 09:38
PROVIDERS: PCP Preventive Medicine Occupational Medicine; Referring Provider Internal Medicine Rheumatology; Visit Provider Internal Medicine Rheumatology
DX: M05.731 Rheumatoid arthritis with rheumatoid factor of right wrist without organ or systems involvement (principal); Z79.899 Other long term (current) drug therapy; M35.00 Sjogren syndrome, unspecified; M19.041 Primary osteoarthritis, right hand; M19.042 Primary osteoarthritis, left hand
CPT/HCPCS: 36415; 80053; 85025

== ENCOUNTER → 2024-06-17 | Outpatient (CLI) | payer MEDICARE, SELFPAY ==
[2024-06-17 13:41] LABS: CRYSTALS, BODY FLUID NO CRYSTALS SEEN
[2024-06-17 13:42] LABS: Source- Body Fluid SYNOVIAL
[2024-06-17 13:43] LABS: Body Fluid QC Type(s) BF2Q
[2024-06-18 13:30] LABS: Pathologist Review Reviewed
== END | disposition home or self-care (01) ==
LOC: LABSPEC 10:46
PROVIDERS: PCP Preventive Medicine Occupational Medicine; Referring Provider Internal Medicine Rheumatology; Visit Provider Internal Medicine Rheumatology
DX: M05.731 Rheumatoid arthritis with rheumatoid factor of right wrist without organ or systems involvement (principal); Z79.899 Other long term (current) drug therapy; M35.00 Sjogren syndrome, unspecified
CPT/HCPCS: 87070; 87075; 87205; 89050; 89051; 89060

== ENCOUNTER → 2024-09-06 | Outpatient (CLI) | payer MEDICARE, SELFPAY ==
[2024-09-06 10:58] LABS: Basophil# 0.03 X10^3/uL; Basophil% 0.4 % (0-1); Eosinophil# 0.02 X10^3/uL; Eosinophils% 0.3 % (0-5); Hemoglobin 12.1 g/dL (13.0-16.5); Lymphocyte % 9.5 % (19-41); Mean Corp Hgb Conc 32.7 g/dL (32-36); Mean Corpuscular Hgb 31.3 pg (27.0-32.0); Mean Corpuscular Volume 95.9 fL (80-94); Mean Platelet Vol. 9.3 fl (6.2-12.0); Monocyte# 0.51 X10^3/uL; Monocyte% 6.9 % (0-10); NRBC Flagged by Analyzer 0.5 % (0-5); Neutrophil # 6.04 X10^3/uL (2.7-7.7); Neutrophil % 82.1 % (47-70); Platelet Count 349 K/mm3 (150-450); RBC Distribution Width CV 13.3 % (11.6-14.6); RBC Distribution Width SD 46.5 fl (35.1-43.9); Red Blood Count 3.86 M/mm3 (4.6-6.2); White Blood Count 7.4 K/mm3 (4.4-11.0)
[2024-09-06 11:19] LABS: ALB/GLOB Ratio 0.9 RATIO (0.9-2.4); AST(SGOT) 19 U/L (<=37); Alanine Aminotransfer ALT/SGPT 10 U/L (<=46); Albumin, Serum 3.2 g/dL (3.4-4.8); Alkaline Phosphatase 73 U/L (40-129); Anion Gap 13 (5-15); BUN 4 mg/dL (4-19); BUN/Creat Ratio 6.4 RATIO (10-20); Calcium,Total 7.5 mg/dL (7.6-11.0); Carbon Dioxide 21.6 mmol/L (21.0-32.0); Chloride 99 mmol/L (98-108); Creatinine, Serum 0.57 mg/dL (0.70-1.20); EST Glomerular Filtration Rate 99 (>60); Globulin 3.6 g/dL (2.2-4.2); Glucose 55 mg/dL (70-99); Potassium 4.1 mmol/L (3.3-5.1); Protein, Total 6.8 g/dL (5.9-8.4); Sodium Level 133 mmol/L (133-145); Total Bilirubin 0.35 mg/dL (0.00-1.30)
== END | disposition home or self-care (01) ==
LOC: MTLAB 09:41
PROVIDERS: PCP Preventive Medicine Occupational Medicine; Referring Provider Internal Medicine Rheumatology; Visit Provider Internal Medicine Rheumatology
DX: M05.731 Rheumatoid arthritis with rheumatoid factor of right wrist without organ or systems involvement (principal); Z79.899 Other long term (current) drug therapy; M35.00 Sjogren syndrome, unspecified; M19.041 Primary osteoarthritis, right hand; M19.042 Primary osteoarthritis, left hand
CPT/HCPCS: 36415; 80053; 85025

== ENCOUNTER → 2024-12-03 | Outpatient (CLI) | payer MEDICARE, SELFPAY ==
[2024-12-03 10:27] LABS: Hematocrit 34.6 % (40-54); Hemoglobin 11.7 g/dL (13.0-16.5); Immature Granulocytes Count 0.130 X10^3/uL (0.0-0.0); Mean Corp Hgb Conc 33.8 g/dL (32-36); Mean Corpuscular Volume 93.8 fL (80-94); Mean Platelet Vol. 9.4 fl (6.2-12.0); NRBC Flagged by Analyzer 0 % (0-5); POSITIVE DIFFERENTIAL YES; Platelet Count 322 K/mm3 (150-450); RBC Distribution Width CV 13.4 % (11.6-14.6); RBC Distribution Width SD 46.0 fl (35.1-43.9); Red Blood Count 3.69 M/mm3 (4.6-6.2); White Blood Count 10.0 K/mm3 (4.4-11.0)
[2024-12-03 10:46] LABS: AST(SGOT) 19 U/L (<=37); Alanine Aminotransfer ALT/SGPT 14 U/L (<=46); Albumin, Serum 3.9 g/dL (3.4-4.8); Alkaline Phosphatase 63 U/L (40-129); Anion Gap 10 (5-15); BUN 7 mg/dL (4-19); BUN/Creat Ratio 10.7 RATIO (10-20); Calcium,Total 9.3 mg/dL (7.6-11.0); Carbon Dioxide 24.8 mmol/L (21.0-32.0); Chloride 93 mmol/L (98-108); Globulin 3.3 g/dL (2.2-4.2); Glucose 101 mg/dL (70-99); Potassium 4.2 mmol/L (3.3-5.1)
== END | disposition home or self-care (01) ==
LOC: MTLAB 08:28
PROVIDERS: PCP Preventive Medicine Occupational Medicine; Referring Provider Internal Medicine Rheumatology; Visit Provider Internal Medicine Rheumatology
DX: M05.731 Rheumatoid arthritis with rheumatoid factor of right wrist without organ or systems involvement (principal); M25.562 Pain in left knee; M35.00 Sjogren syndrome, unspecified; M19.041 Primary osteoarthritis, right hand; M19.042 Primary osteoarthritis, left hand
CPT/HCPCS: 36415; 80053; 85025

== ENCOUNTER → 2025-02-26 | Outpatient (CLI) | payer MEDICARE, SELFPAY ==
[2025-02-26 10:26] LABS: Hematocrit 37.1 % (40-54); Hemoglobin 12.4 g/dL (13.0-16.5); Immature Granulocytes Count 0.030 X10^3/uL (0.0-0.0); Mean Corp Hgb Conc 33.4 g/dL (32-36); Mean Corpuscular Volume 95.6 fL (80-94); Mean Platelet Vol. 9.8 fl (6.2-12.0); NRBC Flagged by Analyzer 0.3 % (0-5); POSITIVE DIFFERENTIAL YES; Platelet Count 289 K/mm3 (150-450); RBC Distribution Width CV 13.2 % (11.6-14.6); RBC Distribution Width SD 46.5 fl (35.1-43.9); Red Blood Count 3.88 M/mm3 (4.6-6.2); White Blood Count 5.9 K/mm3 (4.4-11.0)
[2025-02-26 10:48] LABS: AST(SGOT) 20 U/L (<=37); Alanine Aminotransfer ALT/SGPT 17 U/L (<=46); Albumin, Serum 4.2 g/dL (3.4-4.8); Alkaline Phosphatase 61 U/L (40-129); Anion Gap 9 (5-15); BUN 7 mg/dL (4-19); BUN/Creat Ratio 11.0 RATIO (10-20); Calcium,Total 9.3 mg/dL (7.6-11.0); Carbon Dioxide 27.5 mmol/L (21.0-32.0); Chloride 95 mmol/L (98-108); Globulin 3.1 g/dL (2.2-4.2); Glucose 108 mg/dL (70-99); Potassium 4.8 mmol/L (3.3-5.1)
== END | disposition home or self-care (01) ==
LOC: MTLAB 08:59
PROVIDERS: PCP Preventive Medicine Occupational Medicine; Referring Provider Internal Medicine Rheumatology; Visit Provider Internal Medicine Rheumatology
DX: M05.731 Rheumatoid arthritis with rheumatoid factor of right wrist without organ or systems involvement (principal); Z79.899 Other long term (current) drug therapy; M35.00 Sjogren syndrome, unspecified
CPT/HCPCS: 36415; 80053; 85025

== ENCOUNTER → 2025-04-22 | Outpatient (CLI) | payer MEDICARE, SELFPAY ==
[2025-04-22 13:17] LABS: PSA,Total- Diagnostic 7.74 ng/mL (0.00-4.00)
== END | disposition home or self-care (01) ==
LOC: MTLAB 10:00
PROVIDERS: PCP Preventive Medicine Occupational Medicine; Referring Provider Urology; Visit Provider Urology
DX: N40.1 Benign prostatic hyperplasia with lower urinary tract symptoms (principal)
CPT/HCPCS: 36415; 84153